=== PATIENT | male | born 1950 | race Caucasian/White ===

== ENCOUNTER 2016-11-30 11:28 | Emergency (ER) | payer OTHER ==
[~2016-11-30 11:28] MED LIST: ALBUTEROL0.09 MG/A2 INH; AMOXICILLIN500 MG PO; ANTIBIOTIC; AVPAK AZITHROM250 M1 PO; AZITHROMYCIN250 MG PO; BACTRIM DS 8001 TA1 PO; BENTYL10 MG PO; BIAXIN500 MG PO; BP MED; BP PILL; CEFTIN500 MG PO; CIALIS10 MG PO; CLARITIN10 MG PO; Carafate1 GM/10 ML OGT; DAYPRO600 M1 PO; DUONEB 3 MG/3 ML3 M1 NEB; HUMALOG100 U/ML SC; IBU800 MG PO; INDOCIN50 MG PO; IRON325 M1 PO; K-DUR20 MEQ PO; KEFLEX500 MG PO; KROGER NIC21 MG/24 H T; LASIX40 MG PO; LEVAQUIN750 M1 PO; LEVOFLOXACIN500 MG PO; LISINOPRIL HCTZ1 TA1 PO; LISINOPRIL10 MG PO; MEDROL DOSEPAK4 MG PO; MOTRIN800 MG PO; MUCINEX ER600 MG PO; MUCINEX600 MG PO; MYCOLOG CREAM 115 GM T; Motrin,Rufen800 MG PO; NAPROSYN500 MG PO; NEURONTIN600 MG PO; NICODERM C21 MG/24 H T; PARAFON FORTE500 MG PO; PERCOCET 325 MG1 TA7 PO; PHENERGAN W/DM120 ML PO; PREDNICOT10 MG PO; PREDNICOT20 MG PO; PREDNISONE10 MG PO; PREDNISONE5 MG PO; PREDNISONE50 MG PO; PROTONIX40 MG PO; PROVENTIL0.09 MG/A1 INH; ROBAXIN500 MG PO; ROBAXIN750 MG PO; SPIRIVA18 MCG INH; SUBOXONE 8 MG-1 EACH SL; SUBOXONE 8 MG-21 TA1 PO; SUBOXONE 8 MG-21 TA3 SL; SUBOXONE 8 MG-21 TAB SL; SYMBICORT1 AE1 INH; TRAMADOL HCL50 MG PO; ULTRAM50 MG PO; VENTOLIN H0.09 MG/AC INH; VIBRAMYCIN100 MG PO; VICODIN 5/500 505 MG PO; VICODIN 500 MG-1 TAB PO; VISTARIL25 M1 PO; ZITHROMAX Z PA250 MG PO; ZITHROMAX250 MG PO; [UNRECOGNIZED DRUG - OTHER] T; [UNRECOGNIZED DRUG - REMARK]
[2016-11-30 11:33] VITALS: BP 118/72
== END 2016-11-30 11:55 | disposition home or self-care (01) ==
LOC: ED 11:28
DX: Z76.0 Encounter for issue of repeat prescription (principal); I10 Essential (primary) hypertension; J44.9 Chronic obstructive pulmonary disease, unspecified; Z79.899 Other long term (current) drug therapy

== ENCOUNTER 2016-12-10 16:32 | Emergency (ER) | payer OTHER ==
[~2016-12-10] VITALS: Wt 117.9 kg
[2016-12-10 16:39] VITALS: BP 150/84
[2016-12-10 16:55] LABS: BASO % 0.3 % (0.0-1.0); EOS # 0.2 10*3/uL (0.0-0.4); EOS % 1.7 % (1.0-4.0); HEMATOCRIT 48.5 % (42.0-52.0); LYMPH # 4.1 10*3/uL (1.3-4.4); LYMPH % 35.5 % (27.0-41.0); MEAN CELL VOLUME 88.7 fl (80.0-94.0); MEAN CORPUSCULAR HGB 29.3 pg (27.0-31.0); MEAN PLATELET VOLUME 11.3 fl (9.6-12.3); MONO # 0.8 10*3/uL (0.1-1.0); NEUT # 6.4 10*3/uL (2.3-7.9); NEUT % 55.2 % (47.0-73.0); PLATELET COUNT AUTOMATED 190 10*3/uL (130-400); RED BLOOD COUNT 5.47 10*6/uL (4.50-5.90); RED CELL DISTRI WIDTH 14.1 % (0-14.5); WHITE BLOOD COUNT 11.5 10*3/uL (4.8-10.8)
[2016-12-10 17:13] LABS: ALBUMIN 3.3 gm/dl (3.1-4.5); ALKALINE PHOSPHATASE 81 U/L (45-117); BILIRUBIN, TOTAL 0.5 mg/dl (0.2-1.0); BUN 18 mg/dl (7-24); CARBON DIOXIDE 32 mmol/L (21-32); CHLORIDE 99 mmol/L (98-107); EST GLOM FILT AFRICAN AMERICAN > 60 ml/min; GLUCOSE 146 mg/dL (65-99); POTASSIUM 4.4 mmol/L (3.5-5.1); SGOT/AST 28 IU/L (3-35); SGPT/ALT 27 U/L (12-78); SODIUM 137 mmol/L (136-145); TOTAL PROTEIN 7.2 gm/dL (6.4-8.2)
[2016-12-10] MEDS ORDERED: PREDNISONE10 MG PO (17:58)
[2016-12-10] MEDS ORDERED: 'PARAFON FORTE500 M1 PO (17:58)
== END 2016-12-10 18:05 | disposition home or self-care (01) ==
LOC: ED 16:32
PROVIDERS: Nurse Practitioner Family
DX: R25.2 Cramp and spasm (principal); R03.0 Elevated blood-pressure reading, without diagnosis of hypertension; F17.200 Nicotine dependence, unspecified, uncomplicated; I10 Essential (primary) hypertension; J44.9 Chronic obstructive pulmonary disease, unspecified

== ENCOUNTER 2017-02-16 11:51 | Emergency (ER) | payer OTHER ==
[~2017-02-16] VITALS: Ht 187.9 cm; Wt 113.4 kg
[~2017-02-16 11:51] MED LIST changes: +'PARAFON FORTE500 M1 PO
[2017-02-16 11:54] VITALS: BP 139/77
== END 2017-02-16 13:40 | disposition home or self-care (01) ==
LOC: ED 11:51
DX: Z76.0 Encounter for issue of repeat prescription (principal); I10 Essential (primary) hypertension; J44.9 Chronic obstructive pulmonary disease, unspecified; Z87.891 Personal history of nicotine dependence; Z79.899 Other long term (current) drug therapy

== ENCOUNTER 2017-07-07 16:02 | Emergency (ER) | payer OTHER ==
[~2017-07-07] VITALS: Ht 187.9 cm; Wt 122.5 kg
[2017-07-07 16:59] LABS: BILIRUBIN 1+ (NEGATIVE); BLOOD 3+ (NEGATIVE); CLARITY TURBID (CLEAR); COLOR YELLOW (YELLOW); GLUCOSE NEGATIVE (NEGATIVE); KETONE TRACE (NEGATIVE); LEUKO ESTERASE 2+ (NEGATIVE); NITRITE POSITIVE (NEGATIVE); SPECIFIC GRAVITY 1.025 (1.005-1.030)
[2017-07-07 17:14] LABS: BACTERIA 2+; EPITHELIAL CELLS 0-2; RBC TNTC rbc/hpf (0-2); WBC TNTC wbc/hpf (0-5)
[2017-07-07] MEDS ORDERED: OMNICEF300 MG PO (17:18)
[2017-07-07 17:30] VITALS: BP 129/87
== END 2017-07-07 17:42 | disposition home or self-care (01) ==
LOC: ED 16:02
PROVIDERS: Physician Assistant
DX: N30.01 Acute cystitis with hematuria (principal); F17.200 Nicotine dependence, unspecified, uncomplicated; Z79.899 Other long term (current) drug therapy

== ENCOUNTER 2017-08-16 14:45 | Inpatient (IN) | payer OTHER ==
[~2017-08-16] VITALS: Ht 188 cm; Wt 158.4 kg
--- NOTE | ~2017-08-16 | PR ---
[place], [place] PROGRESS NOTE NAME: [facility] UNIT #: [id number] ROOM: 403 DOCTOR: ROMULO GILBERT MD BIRTHDATE: [birth year] DOS: SUBJECTIVE: The patient is not having any complaints today. Cough and shortness of breath have subsided. OBJECTIVE: VITAL SIGNS: Blood pressure is 188/46, pulse of 70, respirations 16, temperature 97.4. LUNGS: Clear. HEART: Regular. ABDOMEN: Obese, soft. EXTREMITIES: No edema. LABORATORY DATA: Sputum culture final, no bacterial growth. ASSESSMENT AND PLAN: 1. Acute bronchiolitis, proven on a CT scan of the chest. The patient is improved and does not have any evidence of bronchospasm. The plan is to discharge him to home today. 2. Acute exacerbation of chronic obstructive pulmonary disease with hypoxic respiratory failure, hypoxemia has corrected. He does not need oxygen. The plan is to discharge him to home. 3. History of chronic respiratory failure. He used to have oxygen at home, but then decided to smoke while on the oxygen, this resulted in busch of his face, this happened about a year ago. 4. Chronic opioid addiction. Continue Suboxone. 5. Benign hypertension. Pressure is on the low side. We will avoid hydrochlorothiazide. ROMULO GILBERT MD CM:PNTRANS 0838 [id number] ROMULO GILBERT MD 08/19/17 1147 interface
--- NOTE | ~2017-08-16 | PR ---
[place], [place] PROGRESS NOTE NAME: [facility] UNIT #: [id number] ROOM: 403 DOCTOR: ROMULO GILBERT MD BIRTHDATE: [birth year] DOS: 08/18/2017 SUBJECTIVE: The patient is about the same, does not have any new complaints. His breathing is improved, but not completely back to his baseline. PHYSICAL EXAMINATION: VITAL SIGNS: Blood pressure is 107/73, pulse of 92, respirations 23, temperature 97.6. LUNGS: Diminished breath sounds, a few scattered rhonchi. HEART: Regular. ABDOMEN: Obese, soft, nontender. EXTREMITIES: Without any edema. ASSESSMENT AND PLAN: 1. Bilateral pneumonia, possible Gram-negative. 2. Chronic obstructive pulmonary disease with mild exacerbation. 3. Small nodules in the lungs, which will be followed as an outpatient. 4. Moderate cigarette smoker, advised ____. 4. Acute hypoxic respiratory failure. We will do an oxygen ____. Right now, the patient is saturating well and is on room air. ROMULO GILBERT MD CM:PNTRANS 0718 0831 ROMULO GILBERT MD 08/19/17 0328 interface
--- NOTE | ~2017-08-16 | WRIGHTHP ---
[place], [place] PATIENT HISTORY AND PHYSICAL EXAM NAME: [facility] UNIT #: [id number] ROOM: 403 DOCTOR: OFELIA OSORIOROMULO BIRTHDATE: [birth year] DOS: 08/16/2017 HISTORY OF PRESENT ILLNESS: This patient is known to us from previous admissions. He is 66 years old. The patient states that he has been sick for about 2 weeks now. He is not even able to get up and eat anything or take his Suboxone. He denies having any chest pains, palpitations, has been short of breath, has had a cough, has had some upset stomach and does not feel like eating much. He did try some [id number] medication without any improvement. Finally, came to the hospital where he was evaluated and was admitted. PAST MEDICAL HISTORY: 1. COPD. 2. Moderate cigarette smoker. 3. Chronic respiratory failure. 4. Benign hypertension. 5. Generalized anxiety disorder. 6. Opioid addiction. MEDICATIONS: Suboxone 8 mg q.8, lisinopril hydrochlorothiazide 1 tablet daily. SOCIAL HISTORY: Nonsmoker, does not use any alcohol right now, but he has history of cigarette smoking for many years. PHYSICAL EXAMINATION: GENERAL: He is awake and alert and oriented, looks kind of weak, but is able to talk in complete sentences and answers questions appropriately. VITAL SIGNS: Blood pressure is 111/84, pulse of 92, respirations 18, temperature 97.5. LUNGS: Diminished breath sounds, scattered rhonchi. HEART: Regular. ABDOMEN: Obese. EXTREMITIES: Without any edema. LABORATORY DATA: Elevated white cell count of 14.4. Sodium 134, potassium 3.7, chloride 95. ASSESSMENT AND PLAN: 1. The patient who presents with shortness of breath and hypoxemia with acute hypoxic respiratory failure, patient is ordered a CT of the chest to rule out underlying pneumonia. X-ray does show some changes. 2. Bilateral lower lobe pneumonia with atelectasis, most likely Gram-negative. IV antibiotics have been ordered. 3. Chronic obstructive pulmonary disease with acute exacerbation. IV steroids have been ordered. 4. Chronic opioid addiction, Suboxone will be restarted. [place], [place] PATIENT HISTORY AND PHYSICAL EXAM NAME: [facility] UNIT #: [id number] ROOM: 403 DOCTOR: ROMULO GILBERT MD BIRTHDATE: [birth year] ROMULO GILBERT MD CM:HISPHYS:PATIENT HISTORY AND PHYSICAL EXAMINATION 1 0850 ROMULO GILBERT MD 08/17/17 0849 interface
[~2017-08-16 14:45] MED LIST changes: +OMNICEF300 MG PO
[2017-08-16 15:05] VITALS: BP 115/64
[2017-08-16 15:40] LABS: BASO % 0.1 % (0.0-1.0); HEMATOCRIT 51.8 % (42.0-52.0); HEMOGLOBIN 17.3 g/dl (14.0-18.0); LYMPH # 2.4 10*3/uL (1.3-4.4); LYMPH % 16.5 % (27.0-41.0); MEAN CELL VOLUME 86.3 fl (80.0-94.0); MEAN CORPUSCULAR HGB 28.8 pg (27.0-31.0); MEAN CORPUSCULAR HGB CONC 33.4 g/dl (33.0-37.0); MONO % 7.2 % (3.0-9.0); NEUT # 10.9 10*3/uL (2.3-7.9); NEUT % 75.9 % (47.0-73.0); PLATELET COUNT AUTOMATED 142 10*3/uL (130-400); RED CELL DISTRI WIDTH 14.2 % (0-14.5); WHITE BLOOD COUNT 14.4 10*3/uL (4.8-10.8)
[2017-08-16 15:57] LABS: ALBUMIN 2.8 gm/dl (3.1-4.5); ALKALINE PHOSPHATASE 73 U/L (45-117); BUN 12 mg/dl (7-24); CHLORIDE 95 mmol/L (98-107); CREATININE 0.82 mg/dL (0.70-1.30); POTASSIUM 3.7 mmol/L (3.5-5.1); SGOT/AST 27 IU/L (3-35); SGPT/ALT 17 U/L (12-78); SODIUM 134 mmol/L (136-145); TOTAL PROTEIN 7.3 gm/dL (6.4-8.2)
[2017-08-16 16:02] LABS: TROPONIN I < 0.015 ng/ml (<0.045)
[2017-08-16 16:11] LABS: ABG O2 SATURATION 95.1 % (95-97); ARTERIAL BLOOD GAS PCO2 42.4 mmHg (35-45); ARTERIAL BLOOD GAS PH 7.452 (7.35-7.45); ARTERIAL BLOOD GAS PO2 71.7 mmHg (80-90)
[2017-08-16 16:30] VITALS: BP 116/78
[2017-08-16 16:59] VITALS: BP 119/75
[2017-08-16 17:40] VITALS: BP 110/77
[2017-08-16] MEDS ORDERED: VITAMIN D50000 UNIT PO (18:30)
[2017-08-16] MEDS ORDERED: VENTOLIN 02.5 MG/3 M INH (18:31)
[2017-08-16 20:00] VITALS: BP 120/67
[2017-08-17] VITALS (7 sets, daily range): BP systolic 86–128; BP diastolic 47–84
[2017-08-18 08:00] VITALS: BP 88/66
[2017-08-18 12:00] VITALS: BP 133/88
[2017-08-18 16:00] VITALS: BP 101/58
[2017-08-18 20:00] VITALS: BP 83/43
[2017-08-18 23:58] VITALS: BP 88/46
[2017-08-19 08:00] VITALS: BP 124/61
[2017-08-19] MEDS ORDERED: VENTOLIN 02.5 MG/3 M INH (08:27)
[2017-08-19] MEDS ORDERED: MUCINEX ER600 MG PO (08:27)
[2017-08-19] MEDS ORDERED: CIPRO500 MG PO (08:27)
[2017-08-19] MEDS ORDERED: LISINOPRIL10 M1 PO (08:37)
[2017-08-19 09:04] LABS: HEMATOCRIT 48.6 % (42.0-52.0); HEMOGLOBIN 15.8 g/dl (14.0-18.0); MEAN CELL VOLUME 88.2 fl (80.0-94.0); MEAN CORPUSCULAR HGB 28.7 pg (27.0-31.0); MEAN CORPUSCULAR HGB CONC 32.5 g/dl (33.0-37.0); MEAN PLATELET VOLUME 12.1 fl (9.6-12.3); PLATELET COUNT AUTOMATED 149 10*3/uL (130-400); RED BLOOD COUNT 5.51 10*6/uL (4.50-5.90); RED CELL DISTRI WIDTH 14.2 % (0-14.5); WHITE BLOOD COUNT 7.8 10*3/uL (4.8-10.8)
[2017-08-19 09:19] LABS: BUN 16 mg/dl (7-24); CHLORIDE 103 mmol/L (98-107); CREATININE 0.75 mg/dL (0.70-1.30); POTASSIUM 3.2 mmol/L (3.5-5.1); SODIUM 143 mmol/L (136-145)
[2017-08-19 09:30] LABS: ATYPICAL LYMPHS 9 % (0-0); TOTAL CELLS COUNTED 100 #CELLS
[2017-08-19 09:31] LABS: PLATELET SUFFICIENCY NORMAL (NORMAL)
== END 2017-08-19 10:22 | disposition home or self-care (01) | DRG 871 ==
LOC: ED 14:45 → EDHOLD 17:06 → 4E 17:06
PROVIDERS: Internal Medicine; Nurse Practitioner Family
DX: A41.9 Sepsis, unspecified organism (principal); J15.6 Pneumonia due to other Gram-negative bacteria; J96.21 Acute and chronic respiratory failure with hypoxia; E46 Unspecified protein-calorie malnutrition; F11.20 Opioid dependence, uncomplicated; E87.1 Hypo-osmolality and hyponatremia; J44.0 Chronic obstructive pulmonary disease with (acute) lower respiratory infection; Z68.41 Body mass index [BMI] 40.0-44.9, adult; Z99.81 Dependence on supplemental oxygen; J44.1 Chronic obstructive pulmonary disease with (acute) exacerbation; F17.210 Nicotine dependence, cigarettes, uncomplicated; F41.1 Generalized anxiety disorder; E66.9 Obesity, unspecified; R91.8 Other nonspecific abnormal finding of lung field; G89.29 Other chronic pain; M25.562 Pain in left knee; I10 Essential (primary) hypertension; M25.561 Pain in right knee; Z87.440 Personal history of urinary (tract) infections; Z90.49 Acquired absence of other specified parts of digestive tract; Z83.3 Family history of diabetes mellitus; Z79.899 Other long term (current) drug therapy; Z71.6 Tobacco abuse counseling

== ENCOUNTER 2017-10-15 15:27 | Inpatient (IN) | payer OTHER ==
[~2017-10-15] VITALS: Ht 188 cm; Wt 164.0 kg
--- NOTE | ~2017-10-15 | WRIGHTHP ---
[place], [place] PATIENT HISTORY AND PHYSICAL EXAM NAME: [facility] #: [id number] UNIT #: [id number] ROOM: 532 DOCTOR: MORA HANKINS MD BIRTHDATE: [birth year] DOS: 10/15/2017 HISTORY OF PRESENT ILLNESS: The patient is a 66-year-old gentleman with a past medical history of: 1. COPD, oxygen dependent with chronic respiratory failure. 2. Chronic opioid addiction. 3. Benign essential hypertension. 4. Hypertension. The patient was admitted when he presented to the Emergency Department with increasing shortness of breath and he was found to be in right-sided heart failure and acute exacerbation of COPD and recommended for admission. Soon after admission, the patient says he is breathing better and would like to go home immediately without completing his treatment. No complaints of chest pain. No dizziness or fainting episode. No GI or urinary symptoms. REVIEW OF SYSTEMS: LUNGS: Increasing shortness of breath and wheezing. GASTROINTESTINAL: No nausea, vomiting, diarrhea or constipation. CARDIOVASCULAR: No chest pains or palpitations. SOCIAL HISTORY: The patient continues to smoke one and half pack of cigarettes a day. Denies any alcohol or drug abuse. FAMILY HISTORY: Noncontributory. HOME MEDICATIONS: DuoNeb, lisinopril, furosemide. ALLERGIES: No known drug allergies. PHYSICAL EXAMINATION: GENERAL: Alert and oriented x 3, in no visible distress. HEENT AND NECK: Extraocular movements are intact. Sclerae are anicteric. Oral mucosa is moist and clean. No obvious facial weakness. Neck is supple without any lymphadenopathy. No thyromegaly. No JVD. No carotid arterial bruits. LUNGS: Show decreased breath sounds all over, some expiratory wheezing. CARDIOVASCULAR SYSTEM: Heart rate is regular in rate and rhythm. S1 and S2 normally audible. No significant murmur or any other abnormal cardiac sounds. ABDOMEN: Soft, nontender. No obvious organomegaly. Bowel sounds are present. No obvious herniation. EXTREMITIES: 1 to 2+ ankle edema. CENTRAL NERVOUS SYSTEM: Alert and oriented x 3. Cranial nerves II-XII are intact. Speech is normal. The patient is able to move all extremities. Normal muscle strength. Deep tendon reflexes are equal on both sides. Plantars were downgoing. LABORATORY DATA: PT, PTT baseline. Normal serum electrolytes. Albumin level low at 3. Chest x-ray is showing COPD. [place], [place] PATIENT HISTORY AND PHYSICAL EXAM NAME: [facility] UNIT #: [id number] ROOM: 532 DOCTOR: CR OSORIO,MORA Marques BIRTHDATE: [birth year] IMPRESSION AND PLAN: 1. The patient with acute exacerbation of severe underlying chronic obstructive pulmonary disease with acute over chronic respiratory failure, to be treated with corticosteroids, oxygen, nebulizer treatments, antibiotic. The patient is apparently leaving against medical advice. 2. Benign essential hypertension. Blood pressure is to be monitored and treated. 3. Acute right-sided congestive heart failure related to his advanced lung disease and pulmonary hypertension, treated with oxygen and diuresis. MORA HANKINS MD CM:HISPHYS:PATIENT HISTORY AND PHYSICAL EXAMINATION 1438 1750 MORA HANKINS MD 10/16/17 1749 interface
[~2017-10-15 15:27] MED LIST changes: +CIPRO500 MG PO; +LISINOPRIL10 M1 PO; +VENTOLIN 02.5 MG/3 M INH; +VITAMIN D50000 UNIT PO
[2017-10-15 15:34] VITALS: BP 134/81
[2017-10-15 16:27] LABS: BASO % 0.3 % (0.0-1.0); EOS # 0.2 10*3/uL (0.0-0.4); EOS % 2.6 % (1.0-4.0); HEMOGLOBIN 14.4 g/dl (14.0-18.0); LYMPH # 2.5 10*3/uL (1.3-4.4); LYMPH % 28.5 % (27.0-41.0); MEAN CELL VOLUME 90.4 fl (80.0-94.0); MEAN CORPUSCULAR HGB 28.9 pg (27.0-31.0); MEAN PLATELET VOLUME 11.4 fl (9.6-12.3); MONO # 0.6 10*3/uL (0.1-1.0); MONO % 7.1 % (3.0-9.0); NEUT # 5.4 10*3/uL (2.3-7.9); PLATELET COUNT AUTOMATED 175 10*3/uL (130-400); RED BLOOD COUNT 4.98 10*6/uL (4.50-5.90); RED CELL DISTRI WIDTH 15.3 % (0-14.5); WHITE BLOOD COUNT 8.8 10*3/uL (4.8-10.8)
[2017-10-15 16:30] VITALS: BP 133/82
[2017-10-15 16:36] LABS: ACT PARTIAL THROMBO TIME 25.5 SECONDS (20.8-31.5); INTERNATIONAL NORM RATIO 0.9 (2.0-3.5)
[2017-10-15 16:44] LABS: ALKALINE PHOSPHATASE 84 U/L (45-117); BUN 7 mg/dl (7-24); CHLORIDE 104 mmol/L (98-107); CREATININE 0.76 mg/dL (0.70-1.30); LIPASE 66 U/L (73-393); POTASSIUM 3.6 mmol/L (3.5-5.1); SGOT/AST 33 IU/L (3-35); SGPT/ALT 33 U/L (12-78); SODIUM 141 mmol/L (136-145); TOTAL PROTEIN 7.2 gm/dL (6.4-8.2); TROPONIN I < 0.015 ng/ml (<0.045)
[2017-10-15 18:05] VITALS: BP 124/72
[2017-10-15 18:24] VITALS: BP 146/80
[2017-10-15 21:13] VITALS: BP 129/76
[2017-10-16] VITALS: BP 117/70
[2017-10-16 08:00] VITALS: BP 104/48
== END 2017-10-16 10:51 | disposition left against medical advice (07) | DRG 291 ==
LOC: ED 15:27 → EDHOLD 17:35 → 5E 17:50
PROVIDERS: Emergency Medicine
DX: I11.0 Hypertensive heart disease with heart failure (principal); J96.20 Acute and chronic respiratory failure, unspecified whether with hypoxia or hypercapnia; I27.20 Pulmonary hypertension, unspecified; J44.1 Chronic obstructive pulmonary disease with (acute) exacerbation; F11.20 Opioid dependence, uncomplicated; Z99.81 Dependence on supplemental oxygen; I50.9 Heart failure, unspecified; N40.0 Benign prostatic hyperplasia without lower urinary tract symptoms; F17.210 Nicotine dependence, cigarettes, uncomplicated; M54.30 Sciatica, unspecified side; F41.9 Anxiety disorder, unspecified; M25.562 Pain in left knee; M25.561 Pain in right knee; G89.29 Other chronic pain; F13.10 Sedative, hypnotic or anxiolytic abuse, uncomplicated; Z83.3 Family history of diabetes mellitus; Z79.899 Other long term (current) drug therapy; Z87.01 Personal history of pneumonia (recurrent); Z87.440 Personal history of urinary (tract) infections; Z90.49 Acquired absence of other specified parts of digestive tract; Z87.19 Personal history of other diseases of the digestive system

== ENCOUNTER 2017-11-20 14:40 | Emergency (ER) | payer OTHER ==
[~2017-11-20] VITALS: Ht 187.9 cm; Wt 122.5 kg
[2017-11-20 15:46] LABS: BASO % 0.4 % (0.0-1.0); EOS # 0.1 10*3/uL (0.0-0.4); EOS % 0.7 % (1.0-4.0); HEMATOCRIT 49.8 % (42.0-52.0); HEMOGLOBIN 15.6 g/dl (14.0-18.0); LYMPH # 3.7 10*3/uL (1.3-4.4); MEAN CELL VOLUME 89.9 fl (80.0-94.0); MEAN CORPUSCULAR HGB 28.2 pg (27.0-31.0); MEAN CORPUSCULAR HGB CONC 31.3 g/dl (33.0-37.0); MEAN PLATELET VOLUME 11.4 fl (9.6-12.3); MONO # 0.9 10*3/uL (0.1-1.0); MONO % 8.8 % (3.0-9.0); NEUT # 5.3 10*3/uL (2.3-7.9); NEUT % 52.8 % (47.0-73.0); PLATELET COUNT AUTOMATED 177 10*3/uL (130-400); RED BLOOD COUNT 5.54 10*6/uL (4.50-5.90); RED CELL DISTRI WIDTH 14.7 % (0-14.5); WHITE BLOOD COUNT 10.1 10*3/uL (4.8-10.8)
[2017-11-20 15:54] LABS: ACT PARTIAL THROMBO TIME 25.5 SECONDS (20.8-31.5)
[2017-11-20 16:01] VITALS: BP 144/82
[2017-11-20 16:01] LABS: ALBUMIN 3.3 gm/dl (3.1-4.5); ALKALINE PHOSPHATASE 78 U/L (45-117); BUN 8 mg/dl (7-24); CHLORIDE 100 mmol/L (98-107); CREATININE 0.84 mg/dL (0.70-1.30); LIPASE 75 U/L (73-393); POTASSIUM 3.9 mmol/L (3.5-5.1); SGOT/AST 29 IU/L (3-35); SGPT/ALT 29 U/L (12-78); SODIUM 137 mmol/L (136-145); TOTAL PROTEIN 7.7 gm/dL (6.4-8.2)
[2017-11-20 16:06] LABS: TROPONIN I < 0.015 ng/ml (<0.045)
[2017-11-20] MEDS ORDERED: PREDNISONE10 MG PO (16:21)
[2017-11-20] MEDS ORDERED: AUGMENTIN 875875 MG PO (16:21)
[2017-11-20] MEDS ORDERED: CEPACOL SORE T1 EACH PO (16:29)
== END 2017-11-20 16:30 | disposition home or self-care (01) ==
LOC: ED 14:40
PROVIDERS: Nurse Practitioner Family
DX: J02.9 Acute pharyngitis, unspecified (principal); J40 Bronchitis, not specified as acute or chronic; F17.200 Nicotine dependence, unspecified, uncomplicated; J44.1 Chronic obstructive pulmonary disease with (acute) exacerbation; F41.9 Anxiety disorder, unspecified; Z79.899 Other long term (current) drug therapy

== ENCOUNTER 2017-11-22 19:54 | Inpatient (IN) | payer OTHER ==
[~2017-11-22] VITALS: Ht 188 cm; Wt 159.4 kg
--- NOTE | ~2017-11-22 | PR ---
[place], [place] PROGRESS NOTE NAME: [facility] UNIT #: [id number] ROOM: 526 DOCTOR: ROMULO GILBERT MD BIRTHDATE: [birth year] DOS: SUBJECTIVE: The patient is wheezing this morning again. OBJECTIVE: VITAL SIGNS: Blood pressure is 109/66, pulse of 58, respirations 20, temperature 97.5. LUNGS: Diminished breath sounds, scattered wheezes and rhonchi. HEART: Regular. ABDOMEN: Obese. EXTREMITIES: Without any edema. CT of the chest shows tree-in-bud morphology suggestive of atypical pneumonia in the right upper lobe with atelectasis in the lingula. ASSESSMENT AND PLAN: 1. Hypoxic respiratory failure. We will place him back on his BiPAP. 2. Pneumonia, possible Gram-negative, on IV antibiotics. 3. Chronic obstructive pulmonary disease with acute exacerbation, improvement has been extremely slow. We will continue current treatment plan. ROMULO GILBERT MD CM:PNTRANS 0818 1242 ROMULO GILBERT MD 11/25/17 1241 interface
--- NOTE | ~2017-11-22 | PR ---
[place], [place] PROGRESS NOTE NAME: [facility] UNIT #: [id number] ROOM: 526 DOCTOR: ROMULO GILBERT MD BIRTHDATE: [birth year] DOS: 11/27/2017 SUBJECTIVE: The patient is doing much better this morning. OBJECTIVE: VITAL SIGNS: Pressure is 136/88, pulse of 72, respirations 14. LUNGS: Clear. HEART: Regular. ABDOMEN: Obese. EXTREMITIES: Without any edema. ASSESSMENT AND PLAN: 1. Pneumonia, gram-negative, on IV antibiotics. Repeat chest x-ray will be ordered to make sure it is clearing. 2. Exacerbation of chronic obstructive pulmonary disease, improving. 3. Hypoxic respiratory failure, which is resolved. The plan is to discharge him to home tomorrow if the pneumonia shows improvement. ROMULO GILBERT MD CM:PNTRANS 0815 2339 ROMULO GILBERT MD 11/27/17 2338 interface
--- NOTE | ~2017-11-22 | PR ---
[place], [place] PROGRESS NOTE NAME: [facility] UNIT #: [id number] ROOM: 526 DOCTOR: ROMULO GILBERT MD BIRTHDATE: [birth year] DOS: 11/28/2017 SUBJECTIVE: The patient is doing fine without any complaints. OBJECTIVE: VITAL SIGNS: Graphic trend shows pressure 150/81, pulse of 89, respirations 20, temperature 97.7. LUNGS: Diminished breath sounds. No wheezes heard this morning. HEART: Regular. ABDOMEN: Obese, soft. EXTREMITIES: Without any edema. ASSESSMENT AND PLAN: 1. The patient with hypoxic respiratory failure, improved. 2. Acute pneumonia, right upper lobe with atelectasis of the lingula. The patient has been on IV antibiotics, definitely clinically improved. Awaiting chest x-ray, but the patient is stable and most likely can be discharged to home. 3. Hypokalemia, possibly from VITA inhibitors. We will discontinue VITA inhibitors and place him on Norvasc for hypertension. ROMULO GILBERT MD CM:PNTRANS 0824 1026 ROMULO GILBERT MD 11/28/17 1025 interface
--- NOTE | ~2017-11-22 | WRIGHTHP ---
[place], [place] PATIENT HISTORY AND PHYSICAL EXAM NAME: [facility] UNIT #: [id number] ROOM: 526 DOCTOR: ROMULO GILBERT MD BIRTHDATE: [birth year] DOS: 11/22/2017 HISTORY OF PRESENT ILLNESS: The patient is 66-year-old, known to us. He comes in with complaints of difficulty breathing. The patient was seen in the emergency room on November 20. At that time, he was complaining of sore throat and cough. His oxygen saturation was 92% on room air. At that time, he was given IV steroids, breathing treatments and was sent home on tapering dose of steroids and antibiotics. He came back in on the evening with worsening shortness of breath at this time, he had significant bronchospasm and he was hypoxic and therefore admitted. This morning, he is extremely tachypneic with audible wheezing. He denies having any chest pains or palpitations, not have any fever or chills. Last hospitalization was in October 2015 with shortness of breath, but he left AMA. PAST MEDICAL HISTORY: Also significant for chronic hypoxic respiratory failure, chronic opioid addiction, benign hypertension. MEDICATIONS: Albuterol, lisinopril 10 daily, prednisone tapering dose and Suboxone q.8 hours. SOCIAL HISTORY: Smoker of about half a pack of cigarettes a day, even on oxygen. Denies using any alcohol. PHYSICAL EXAMINATION: VITAL SIGNS: Graphic trend shows a pressure 117/64, pulse of 97, respirations 20, temperature 98.1. LUNGS: Diminished breath sounds, very tight with significant bronchospasm and audible wheezing. HEART: Regular. ABDOMEN: Obese. EXTREMITIES: Without any edema. ASSESSMENT AND PLAN: 1. The patient presents with acute exacerbation of COPD. He has significant bronchospasms. I am afraid the patient may end up getting tired and ending up on a ventilator, so we will place him on a BiPAP this morning. Discussed with respiratory and also dose of steroids will be increased. 2. Benign hypertension, controlled. 3. Acute tracheobronchitis on antibiotics. We will check an echocardiogram and a CT chest. [place], [place] PATIENT HISTORY AND PHYSICAL EXAM NAME: [facility] UNIT #: [id number] ROOM: 526 DOCTOR: ROMULO GILBERT MD BIRTHDATE: [birth year] ROMULO GILBERT MD CM:HISPHYS:PATIENT HISTORY AND PHYSICAL EXAMINATION 2 7 ROMULO GILBERT MD 11/23/17 0917 interface
--- NOTE | ~2017-11-22 | PR ---
[place], [place] [id number] #: [id number] ROOM: 526 DOCTOR: ROMULO GILBERT MD BIRTHDATE: [birth year] DOS: 11/26/2017 SUBJECTIVE: The patient is doing much better this morning. OBJECTIVE: VITAL SIGNS: Graphic trend shows a pressure 109/65, pulse of 62, respirations 20 and temperature 97.7. LUNGS: Clear. HEART: Regular. ABDOMEN: Obese. EXTREMITIES: Without any edema. ASSESSMENT AND PLAN: 1. Pneumonia, possible gram-negative, on IV antibiotics. 2. Hypoxic respiratory failure, which is resolving. 3. Chronic obstructive pulmonary disease with acute exacerbation. The patient definitely is much improved from yesterday. Continue current care. ROMULO GILBERT MD CM:PNTRANS 0811 19 ROMULO GILBERT MD 12/06/17 1431 interface
--- NOTE | ~2017-11-22 | PR ---
[place], [place] PROGRESS NOTE NAME: [facility] UNIT #: [id number] ROOM: 526 DOCTOR: ROMULO GILBERT MD BIRTHDATE: [birth year] DOS: SUBJECTIVE: The patient is doing much better this morning. He is no longer tachypneic and accessory muscles of respirations are not being used. He did tolerate the BiPAP during the last 24 hours. OBJECTIVE: VITAL SIGNS: Blood pressure is 99/59, pulse of 74, respirations 16, temperature 96.2. LUNGS: Clear. HEART: Regular. ABDOMEN: Obese. EXTREMITIES: Without any edema. ASSESSMENT AND PLAN: 1. Acute exacerbation of chronic obstructive pulmonary disease. 2. Hypoxic respiratory failure, definite improvement, so we can discontinue the BiPAP and continue the rest of the management and hopefully can be discharged. 3. Echo did not show any evidence of left ventricular dysfunction. ROMULO GILBERT MD CM:PNTRANS 0817 16 ROMULO GILBERT MD 11/24/17 2016 interface
--- NOTE | ~2017-11-22 | DS ---
[place], [place] DISCHARGE SUMMARY NAME: [facility] UNIT #: [id number] ROOM: 526 DOCTOR: ROMULO GILBERT MD BIRTHDATE: [birth year] DOS: 11/28/2017 DIAGNOSES: 1. Atypical pneumonia, right upper lobe. 2. Hypoxic respiratory failure. 3. Acute exacerbation of chronic obstructive pulmonary disease. 4. History of opioid addiction. 5. Hypokalemia, possibly from VITA inhibitors. 6. Benign hypertension, off lisinopril. DISCHARGE MEDICATIONS: He is going to be discharged on are Norvasc 5 mg daily, doxycycline 100 b.i.d. for 7 days, tapering dose of prednisone, Suboxone and DuoNeb q.i.d. He is off his lisinopril. HISTORY OF PRESENT ILLNESS: A 66-year-old white male who comes in with complaints of difficulty breathing. There was significant shortness of breath with tachypnea and accessory muscle usage. The patient was placed on BiPAP. A CT of the chest was done. IV steroids, breathing treatments, and antibiotics were started. The patient continued to have significant bronchospasm on maximal treatment plan. CT scan of the chest showed tree-in-bud changes of pneumonia in the right upper lobe as well as in the lingular area. The antibiotics were readjusted. With that there has been significant improvement in the bronchospasm and the shortness of breath. The patient is much improved today and should be able to go home. The hyperkalemia was noted, most likely from VITA inhibitors, which will be discontinued and placed on Norvasc for hypertension. The patient is encouraged to quit smoking. Blood cultures have come back negative. [place], [place] DISCHARGE SUMMARY NAME: [facility] UNIT #: [id number] ROOM: 526 DOCTOR: ROMULO GILBERT MD BIRTHDATE: [birth year] ROMULO GILBERT MD CM:DISCHARG 0827 0933 ROMULO GILBERT MD 11/28/17 0932 interface
[~2017-11-22 19:54] MED LIST changes: +AUGMENTIN 875875 MG PO; +CEPACOL SORE T1 EACH PO
[2017-11-22 19:55] VITALS: BP 128/89
[2017-11-22 20:23] VITALS: BP 128/89
[2017-11-22 20:28] LABS: BASO % 0.1 % (0.0-1.0); HEMATOCRIT 48.8 % (42.0-52.0); HEMOGLOBIN 15.5 g/dl (14.0-18.0); LYMPH # 1.6 10*3/uL (1.3-4.4); LYMPH % 15.3 % (27.0-41.0); MEAN CELL VOLUME 89.1 fl (80.0-94.0); MEAN CORPUSCULAR HGB 28.3 pg (27.0-31.0); MEAN CORPUSCULAR HGB CONC 31.8 g/dl (33.0-37.0); MEAN PLATELET VOLUME 11.6 fl (9.6-12.3); MONO # 0.6 10*3/uL (0.1-1.0); MONO % 5.2 % (3.0-9.0); NEUT # 8.3 10*3/uL (2.3-7.9); PLATELET COUNT AUTOMATED 194 10*3/uL (130-400); RED BLOOD COUNT 5.48 10*6/uL (4.50-5.90); WHITE BLOOD COUNT 10.5 10*3/uL (4.8-10.8)
[2017-11-22 20:45] LABS: ALBUMIN 3.2 gm/dl (3.1-4.5); ALKALINE PHOSPHATASE 73 U/L (45-117); BUN 12 mg/dl (7-24); CHLORIDE 104 mmol/L (98-107); CREATININE 0.89 mg/dL (0.70-1.30); LIPASE 59 U/L (73-393); SGOT/AST 37 IU/L (3-35); SGPT/ALT 32 U/L (12-78); SODIUM 140 mmol/L (136-145); TOTAL PROTEIN 7.6 gm/dL (6.4-8.2)
[2017-11-22 20:52] LABS: THYROID STIM HORMONE (HS) 0.698 uIU/ml (0.358-4.75); TROPONIN I < 0.015 ng/ml (<0.045)
[2017-11-22 21:50] VITALS: BP 135/86
[2017-11-22 21:51] LABS: BILIRUBIN NEGATIVE (NEGATIVE); BLOOD TRACE-INTACT (NEGATIVE); CLARITY CLEAR (CLEAR); COLOR YELLOW (YELLOW); GLUCOSE NEGATIVE (NEGATIVE); KETONE NEGATIVE (NEGATIVE); LEUKO ESTERASE NEGATIVE (NEGATIVE); NITRITE NEGATIVE (NEGATIVE); SPECIFIC GRAVITY >= 1.030 (1.005-1.030); UROBILINOGEN 0.2 E.U./dl (0.2-1.0)
[2017-11-22 22:01] LABS: BACTERIA 1+; MUCOUS 1+
[2017-11-22 22:02] LABS: EPITHELIAL CELLS 0-2
[2017-11-23] VITALS: BP 117/64
[2017-11-23 08:00] VITALS: BP 115/72
[2017-11-23 12:00] VITALS: BP 126/83
[2017-11-23 12:32] LABS: ABG BASE EXCESS 1.2 mmol/L (-2.0-2.0); ABG HCO3 29.5 mmol/l (22-26); ABG O2 SATURATION 91.8 % (95-97); ARTERIAL BLOOD GAS PCO2 62.9 mmHg (35-45); ARTERIAL BLOOD GAS PH 7.291 (7.35-7.45)
[2017-11-23 16:00] VITALS: BP 129/72
[2017-11-23 20:00] VITALS: BP 130/79
[2017-11-24] VITALS: BP 99/59
[2017-11-24 08:00] VITALS: BP 98/58
[2017-11-24 12:00] VITALS: BP 120/67
[2017-11-24 16:00] VITALS: BP 123/75
[2017-11-24 20:00] VITALS: BP 102/59
[2017-11-25] VITALS: BP 109/66
[2017-11-25 08:00] VITALS: BP 130/86
[2017-11-25 12:00] VITALS: BP 128/81
[2017-11-25 16:00] VITALS: BP 100/69
[2017-11-25 20:00] VITALS: BP 105/66
[2017-11-26] VITALS: BP 109/65
[2017-11-26 08:00] VITALS: BP 134/75
[2017-11-26 12:00] VITALS: BP 116/97
[2017-11-26 16:00] VITALS: BP 136/87
[2017-11-26 20:00] VITALS: BP 151/85
[2017-11-27] VITALS: BP 136/88
[2017-11-27 08:00] VITALS: BP 123/58
[2017-11-27 12:00] VITALS: BP 139/91
[2017-11-27 16:00] VITALS: BP 128/74
[2017-11-27 20:00] VITALS: BP 112/65
[2017-11-28] VITALS: BP 132/81
[2017-11-28 06:41] LABS: BASO % 0.2 % (0.0-1.0); HEMATOCRIT 48.8 % (42.0-52.0); HEMOGLOBIN 14.8 g/dl (14.0-18.0); LYMPH # 1.8 10*3/uL (1.3-4.4); LYMPH % 17.9 % (27.0-41.0); MEAN CELL VOLUME 92.6 fl (80.0-94.0); MEAN CORPUSCULAR HGB 28.1 pg (27.0-31.0); MEAN CORPUSCULAR HGB CONC 30.3 g/dl (33.0-37.0); MEAN PLATELET VOLUME 11.7 fl (9.6-12.3); MONO # 0.2 10*3/uL (0.1-1.0); MONO % 2.5 % (3.0-9.0); NEUT # 7.6 10*3/uL (2.3-7.9); NEUT % 77.6 % (47.0-73.0); PLATELET COUNT AUTOMATED 163 10*3/uL (130-400); RED BLOOD COUNT 5.27 10*6/uL (4.50-5.90); RED CELL DISTRI WIDTH 15.2 % (0-14.5); WHITE BLOOD COUNT 9.8 10*3/uL (4.8-10.8)
[2017-11-28 07:12] LABS: BUN 17 mg/dl (7-24); CHLORIDE 101 mmol/L (98-107); CREATININE 0.75 mg/dL (0.70-1.30); SODIUM 143 mmol/L (136-145)
[2017-11-28 07:17] LABS: POTASSIUM 5.6 mmol/L (3.5-5.1)
[2017-11-28 08:00] VITALS: BP 150/81
[2017-11-28] MEDS ORDERED: NORVASC5 MG PO (08:21)
[2017-11-28] MEDS ORDERED: PREDNISONE5 MG PO (08:21)
[2017-11-28] MEDS ORDERED: DOXYCYCLINE100 MG PO (08:21)
== END 2017-11-28 09:55 | disposition home or self-care (01) | DRG 871 ==
LOC: ED 19:54 → 5E 21:11 → EDHOLD 21:11 → 5E 21:29
PROVIDERS: Emergency Medicine Emergency Medical Services; Internal Medicine
PROC: 5A09357 Assistance with Respiratory Ventilation, Less than 24 Consecutive Hours, Continuous Positive Airway Pressure (ICD-10-PCS; principal; 2017-11-23)
PROC: 5A09357 Assistance with Respiratory Ventilation, Less than 24 Consecutive Hours, Continuous Positive Airway Pressure (ICD-10-PCS; 2017-11-25)
PROC: 5A09357 Assistance with Respiratory Ventilation, Less than 24 Consecutive Hours, Continuous Positive Airway Pressure (ICD-10-PCS; 2017-11-28)
DX: A41.9 Sepsis, unspecified organism (principal); J15.6 Pneumonia due to other Gram-negative bacteria; J96.01 Acute respiratory failure with hypoxia; J44.1 Chronic obstructive pulmonary disease with (acute) exacerbation; J44.0 Chronic obstructive pulmonary disease with (acute) lower respiratory infection; J98.11 Atelectasis; J20.9 Acute bronchitis, unspecified; I10 Essential (primary) hypertension; T44.5X5A Adverse effect of predominantly beta-adrenoreceptor agonists, initial encounter; E87.6 Hypokalemia; F17.210 Nicotine dependence, cigarettes, uncomplicated; Y92.89 Other specified places as the place of occurrence of the external cause; Z71.6 Tobacco abuse counseling; Z87.01 Personal history of pneumonia (recurrent); Z87.440 Personal history of urinary (tract) infections; Z90.49 Acquired absence of other specified parts of digestive tract; Z83.3 Family history of diabetes mellitus

== ENCOUNTER 2018-07-03 18:33 | Inpatient (IN) | payer OTHER ==
[~2018-07-03] VITALS: Ht 188 cm; Wt 145.3 kg
--- NOTE | ~2018-07-03 | PR ---
[place], [place] PROGRESS NOTE [id number] #: [id number] ROOM: 415 DOCTOR: ROMULO GILBERT MD BIRTHDATE: [birth year] DOS: 07/06/2018 SUBJECTIVE: The patient states that he feels better, but he still has a very moist sounding cough and is unable to bring up any sputum. OBJECTIVE: VITAL SIGNS: Blood pressure is 114/68, pulse of 75, respirations 22, temperature 97.9. LUNGS: Diminished breath sounds. Scattered wheezes heard. HEART: Regular. ABDOMEN: Obese. EXTREMITIES: Without any edema. ASSESSMENT AND PLAN: 1. Acute exacerbation of chronic obstructive pulmonary disease with continued cough and inability to bring up any sputum. We will ask Dr. Mena to see whether he could perform bronchoscopy. 2. Multiple lung nodules, which appears to be benign in nature. We will continue to follow. 3. Thoracic aortic aneurysm, which will need to be followed up as an outpatient. We will get Vascular Surgery to see him once he leaves the hospital. ROMULO GILBERT MD CM:PNTRANS 0734 0130 ROMULO GILBERT MD 07/07/18 0539 interface
--- NOTE | ~2018-07-03 | PR ---
[place], [place] PROGRESS NOTE [id number] #: [id number] ROOM: 415 DOCTOR: ROMULO GILBERT MD BIRTHDATE: [birth year] DOS: SUBJECTIVE: The patient is doing fine without any new complaints. He is ambulating and shortness of breath and cough has subsided. OBJECTIVE: VITAL SIGNS: Graphic trend shows a pressure 116/71, pulse of 84, respirations 20, temperature 97.5. LUNGS: Diminished breath sounds, clearer this morning. HEART: Regular. ABDOMEN: Obese. EXTREMITIES: Without any edema. ASSESSMENT AND PLAN: 1. Acute exacerbation of chronic obstructive pulmonary disease, improving. Since the bronchospasm is almost corrected, the plan is to discharge him to home today. We will do the bronchoscopy if needed as an outpatient. 2. Aneurysm, thoracic aortic aneurysm, which is 4.5 cm, which needs to be followed up as an outpatient. We will refer him to Vascular Surgery. The patient is advised to follow up in the office. 3. Benign hypertension, controlled with normal echocardiogram showing normal LV function with mild concentric left ventricular hypertrophy. 4. Moderate cigarette smoker, counseled. He does have nicotine patches at home, which he plans to use. ROMULO GILBERT MD CM:PNTRANS 0824 1050 ROMULO GILBERT MD 07/08/18 1051 interface
--- NOTE | ~2018-07-03 | PR ---
[place], [place] PROGRESS NOTE NAME: [facility]AV UNIT #: [id number] ROOM: 415 DOCTOR: LOKI SWANSON MD,CHRISTA BIRTHDATE: [birth year] DOS: 07/08/2018 SUBJECTIVE: He has been doing better at this time without any acute distress. The shortness of breath of the patient has been improving. The coughing has been improving progressively at the present time and reported infrequently. OBJECTIVE: VITAL SIGNS: For the patient this morning were noted as normal temperature, respiratory rate of 18, heart rate 69, blood pressure 116/71. The pulse oxygen saturation on 2 liters nasal cannula 95% saturation. HEENT: No acute change. NECK: Supple. CARDIOVASCULAR: S1, S2 is audible. LUNGS: Without any wheezing or crackles. ABDOMEN: Soft, nontender. Bowel sounds present. EXTREMITIES: No acute edema. IMPRESSION: The patient who has been currently responding to treatment noted with gradual improvement and resolution of the acute exacerbation of chronic obstructive pulmonary disease and other medical illnesses. The coughing has been gradually subsiding. PLAN OF TREATMENT: The patient will be receiving oxygen supplementation as was noted exertional hypoxia prior to discharge today. Bronchoscopy not be needed. Counseling was done about tobacco cessation. Outpatient followup could be suggested. The patient decided for further comprehensive assessment of chronic obstructive pulmonary disease. CHRISTA MANJARREZ MD CM:PNTRANS 1145 [id number] CHRISTA SWANSON MD 07/08/18 1578 interface
--- NOTE | ~2018-07-03 | CON ---
[place], [place] REPORT OF CONSULTATION NAME: [facility] [id number] UNIT #: [id number] ROOM: 415 DOCTOR: CHRISTA JARA MD BIRTHDATE: [birth year] DOS: 07/06/2018 PULMONARY CONSULTATION, EVALUATION AND MANAGEMENT REQUESTING PHYSICIAN: Miryam Rendon M.D. REASON FOR CONSULTATION: Possible consideration of bronchoscopy. HISTORY OF PRESENT ILLNESS: This is a 67-year-old white male, unknown to me, has been admitted to the hospital. He has been developing symptoms of increased shortness of breath with chest congestion and nonproductive cough. Cough has been noted quite severe, associated with pain which is described in the retrosternal area. There were no symptoms of hemoptysis. The patient has been treated in this hospital under the care of primary care physician on 07/03/2018. The symptoms have been decreased, except cough is still noted that remains nonproductive at this time. Denies symptoms of fever or chills. Denies symptoms of hemoptysis. The chest pain, which has been reported by the patient seemed to be better. REVIEW OF SYSTEMS: CONSTITUTIONAL: Fatigue and tiredness noted. Denies any symptoms of fever or chills. EYES: Denies burning, redness or tenderness. EARS, NOSE, THROAT SYMPTOMS: Denies sore throat, hoarseness, otalgia, postnasal drainage or epistaxis. CARDIOVASCULAR SYMPTOMS: Denies anginal pain, edema, or pain in lower extremities. GASTROINTESTINAL SYMPTOMS: Denies dysphagia, nausea, vomiting, diarrhea, abdominal pain, hematemesis, melena, or hematochezia. SKIN: Denies abnormal lesions or rashes. MUSCULOSKELETAL SYMPTOMS: Denies acute joint pain, redness or tenderness. Remaining systems were reviewed, they were noted all negative. PAST MEDICAL HISTORY: 1. History of COPD. 2. Chronic nicotine dependence. 3. Essential hypertension. 4. Xzfzahmh-bt-fnxwkp obesity. 5. History of opioid dependence. 6. History cluster headaches. 7. History of osteoarthritis. SOCIAL HISTORY: The patient currently lives at home. Denies any history of alcohol use or illicit drug use. Tobacco use is noted, up to 2 packs of cigarettes a day started as a teenager, and currently reducing tobacco use, stating smoking a pack of cigarettes per week. PAST SURGICAL HISTORY: 1. Total knee replacement. 2. Cholecystectomy. [place], [place] REPORT OF CONSULTATION NAME: WEST YADAV UNIT #: [id number] ROOM: [facility] DOCTOR: CHRISTA JARA MD BIRTHDATE: [birth year] 3. Heel spur removed. FAMILY HISTORY: Reported for diabetes mellitus. CURRENT MEDICATIONS: Administered in this hospitalization, use of Pulmicort Respules, albuterol sulfate, lisinopril, Mucinex, DuoNeb, Solu-Medrol 30 mg q. eight hours, and Rocephin. DRUG ALLERGIES: Reported as no known drug allergies. PHYSICAL EXAMINATION: GENERAL: This is a 67-year-old male patient who has been currently noted awake and alert, without any acute distress, sitting on the side of bed without any acute distress this morning on assessment. Height is 6 feet 2 inches, weight of 320 pounds, BMI 41. VITAL SIGNS: Normal temperature since admission, respiratory rate 22-18, heart rate of 90-75, blood pressure 120/80 to 114/68. Pulse oxygen saturation on 2 liters nasal cannula is 96% saturation. HEENT: Head was atraumatic. Eyes nonicterus. Decreased posterior pharyngeal space, high tongue base, crowding of soft tissue structures. NECK: Supple and obese. CARDIOVASCULAR: S1 and S2 audible. LUNGS: Noted without any wheeze or crackles at the present time. Breaths are noted generally diminished bilaterally. ABDOMEN: Soft, nontender. Bowel sounds present. EXTREMITIES: Noted with chronic obesity finding, without edema, clubbing or cyanosis. MUSCULOSKELETAL: Without any acute deformities. CENTRAL NERVOUS SYSTEM: Cranial nerves 2 through 12 intact. LABORATORY DATA: Admission CBC on 07/03/2018 is essentially noted as normal. Lactic acid 1.4. PT and PTT were normal on 07/03/2018. BUN and creatinine were normal. CO2 of 33. Chest x-ray does not show any acute pulmonary infiltration on 07/03/2018. Blood culture, no bacterial growth on 07/03/2018. CT scan of the chest that was ordered and completed with contrast on 07/04/2018 was personally reviewed, parenchymal windows review was noted without any acute pulmonary infiltration except small ground-glass opacity noted in the lingular region, may be related to atelectasis resulting from the mucus impaction. The mediastinal structures review does not show any evidence of significant lymphadenopathy, fat was noted in the mediastinal area because of current obesity. The patient was also noted with mild ascending aortic aneurysm without any dissection. Size of the aneurysm that is measured by the radiologist reported as 4.5 cm. IMPRESSION: 1. The patient who has been currently admitted to the hospital noted with nicotine abuse with acute exacerbation of chronic obstructive pulmonary disease, ongoing cough, nonproductive sputum, some area of atelectasis in lingula. 2. Chronic obesity, possible consideration of obstructive sleep apnea disorder as well. Still low-grade nicotine abuse reported from admission. [place], [place] REPORT OF CONSULTATION NAME: WEST YADAV UNIT #: [id number] ROOM: [facility] DOCTOR: CHRISTA JARA MD BIRTHDATE: [birth year] 3. Asymptomatic ascending aortic aneurysm 4.5 cm incidentally noted with current CT scan of the chest. PLAN OF MANAGEMENT: The patient will be continued on current plan of management. He will be assessed with therapeutic bronchoscopy that could be done next week based on the schedule availability. The patient could be considered for home discharge and the bronchoscopy could be done outpatient since the schedule may not be available for therapeutic bronchoscopy until Sunday. In the meantime, continue current maximal medical management. Abstinence of tobacco use was encouraged and counseling about tobacco cessation was done. Ascending aortic aneurysm monitoring to be done later as an outpatient and consultation could be obtained from the vascular surgeon. Thank you for allowing me to participate in the care of this patient. CHRISTA MANJARREZ MD CM:CONSTR:REPORT OF CONSULTATION 1503 07/22/18 0840 interface
--- NOTE | ~2018-07-03 | PR ---
[place], [place] PROGRESS NOTE [id number] UN[facility] #: [id number] ROOM: 415 DOCTOR: ROMULO GILBERT MD BIRTHDATE: [birth year] DOS: SUBJECTIVE: The patient is feeling slightly better this morning. OBJECTIVE: VITAL SIGNS: Graphic trend shows a pressure of 105/63, pulse of 79, respirations 20, and temperature 98.3. LUNGS: Diminished breath sounds, clearer this morning. HEART: Regular. ABDOMEN: Obese. EXTREMITIES: Without any edema. IMAGING: CT of the chest shows an aneurysm, which is 4.5 cm with multiple nodules. Echocardiogram shows pulmonary hypertension from underlying COPD with normal LV function without any major valvular pathology. ASSESSMENT AND PLAN: 1. Acute exacerbation of chronic obstructive pulmonary disease, improving slowly. 2. Ascending thoracic aortic aneurysm, evaluation as an outpatient. 3. Moderate cigarette smoker, counseled. 4. Multiple lung nodules. We will continue close followup as an outpatient. ROMULO GILBERT MD CM:PNTRANS [id number] ROMULO GILBERT MD 07/05/18 2332 interface
--- NOTE | ~2018-07-03 | PR ---
[place], [place] PROGRESS NOTE NAME: WEST YADAV UNIT #: [id number] ROOM: 415 DOCTOR: ROMULO GILBERT MD BIRTHDATE: [birth year] DOS: SUBJECTIVE: The patient states that he is slowly getting better. He is walking around. He is able to cough up some minimal amount of mucus. OBJECTIVE: VITAL SIGNS: Graphic trend shows a pressure 122/60, pulse of 82, respirations 18, temperature 97.6. LUNGS: Diminished breath sounds, scattered rales and wheezes heard. HEART: Regular. ABDOMEN: Obese, soft. EXTREMITIES: Without any edema. ASSESSMENT AND PLAN: 1. Acute exacerbation of chronic obstructive pulmonary disease, improving ever so slowly. Discussed with Dr. Mena the plans to do a bronchoscopy on Sunday. 2. Thoracic aortic aneurysm, for which, he will be referred to cardiothoracic surgeon as an outpatient. 3. Moderate cigarette smoker counseling given. 4. Chronic opioid addiction, on Suboxone, to be continued. ROMULO GILBERT MD CM:PNTRANS [id number] RMOULO GILBERT MD 07/08/18 0135 interface
--- NOTE | ~2018-07-03 | DS ---
[place], [place] DISCHARGE SUMMARY NAME: WEST YADAV UNIT #: [id number] ROOM: 415 DOCTOR: ROMULO GILBERT MD BIRTHDATE: [birth year] DOS: 07/08/2018 DIAGNOSES: 1. Acute exacerbation of chronic obstructive pulmonary disease. 2. Moderate cigarette smoker. 3. Benign hypertension. 4. Opioid addiction. 5. A 4.5 cm thoracic aortic aneurysm, needs to be referred to Vascular Surgery. HOSPITAL COURSE: The patient is 67 years old, very well known to us, comes in with complaints of difficulty breathing. He continues to smoke. He was admitted and had significant bronchospasm. A CT of the chest was done to rule out underlying pneumonia. This came back negative except for an aneurysm. Echocardiogram showed normal LV function without any valvular pathology with mild concentric LVH. He has been counseled against smoking. He also has multiple lung nodules, which need to be followed up as an outpatient. Dr. Mena did see the patient and he recommended possible bronchoscopy, but since the patient has improved, we will schedule the bronch as an outpatient if necessary. The patient is stable and is ambulating, so the plan is to discharge him to home today to follow up as an outpatient. DISCHARGE MEDICATIONS: Will be tapering dose of prednisone, Levaquin 750 daily for 7 days, breathing treatments of DuoNeb, Nicotrol patch 14 mcg, which he already has at home and his home medications, which include lisinopril and Suboxone. ROMULO GILBERT MD CM:DISCHARG ROMULO GILBERT MD 07/08/1829 interface
--- NOTE | ~2018-07-03 | PR ---
[place], [place] PROGRESS NOTE NAME: WEST YADAV UNIT #: [id number] ROOM: 415 DOCTOR: LOKI SWANSON MD,CHRISTA BIRTHDATE: [birth year] DOS: 07/07/2018 PULMONARY PROGRESS NOTE SUBJECTIVE: The patient reported reduction in symptoms of shortness of breath and cough and wheezing. Denies symptoms of chest pain. Denies symptoms of fever or chills. No hemoptysis. OBJECTIVE: VITAL SIGNS: Normal temperature, respiratory rate 18, heart rate of 82, blood pressure 122/61, pulse oxygen saturation on 2 liters nasal cannula 92% saturation. HEENT: No acute change. CARDIOVASCULAR: S1, S2 audible. LUNGS: Moderate decreased breath sounds, no wheezing today. ABDOMEN: Soft, obese, nontender. EXTREMITIES: Without any acute edema. IMPRESSION: Acute exacerbation of chronic obstructive pulmonary disease, acute tracheobronchitis, moderate nonproductive cough, which has been noted with partial improvement, last seen in progress. PLAN OF THERAPY: No changes in the plan of care at this time. Consider possible home discharge tomorrow morning with an outpatient bronchoscopy if needed. The final decision about the bronchoscopy will be made tomorrow after the patient will be reassessed. CHRISTA MANJARREZ MD CM:PNTRANS [id number] CHRISTA SWANSON MD 07/07/18 2340 interface
--- NOTE | ~2018-07-03 | WRIGHTHP ---
[place], [place] PATIENT HISTORY AND PHYSICAL EXAM NAME: WEST YADAV UNIT #: [id number] ROOM: 415 DOCTOR: ROMULO GILBERT MD BIRTHDATE: [birth year] DOS: 07/03/2018 HISTORY OF PRESENT ILLNESS: This patient is 67 years old. The patient is very well known to us. He was last admitted to the hospital a month ago with increasing shortness of breath and exacerbation of COPD. The patient states that he went home, ran out of his inhalers and his nebulizer medicine. He also started smoking and he is back into the Emergency Room yesterday with complaints of increasing shortness of breath. He has a very moist sounding cough, also has some retrosternal chest pain at times when he coughs. Denies having any fever, any chills. PAST MEDICAL HISTORY: Significant for: 1. COPD with moderate cigarette smoker. 2. Benign hypertension. 3. Chronic respiratory failure. 4. History of opioid addiction. MEDICATIONS: He is on are Suboxone 8 mg q. 8, lisinopril 10 daily, Ventolin q.i.d., ProAir HFA q.i.d. p.r.n. SOCIAL HISTORY: Smoker of about half a pack of cigarettes a day. Denies using any alcohol. PHYSICAL EXAMINATION: GENERAL: He is awake and alert and oriented. VITAL SIGNS: Graphic trend shows a pressure 100/56, pulse of 87, respirations 20, temperature 98.2. LUNGS: Diminished breath sounds, scattered wheezes and rales heard bilaterally. HEART: Regular. ABDOMEN: Obese, soft. EXTREMITIES: Without any edema. LABORATORY DATA: EKG unremarkable. Previous EKGs that shows left anterior hemiblock. WBC count is normal at 8.6, hemoglobin and hematocrit were normal. Lactic acid 1.1. Protime is subtherapeutic. Comprehensive glucose 146, potassium 4.2, sodium 142. Liver enzymes were normal. Troponin normal. Chest x-ray unremarkable. ASSESSMENT AND PLAN: 1. The patient presents with cough, shortness of breath, fever, admitted with acute tracheobronchitis, possible underlying pneumonia. Chest CT scan is ordered. 2. Chronic obstructive pulmonary disease with continued nicotine abuse with acute exacerbation. The patient is placed on IV steroids, breathing treatments. 3. Benign hypertension, controlled. 4. Opioid addiction. Continue Suboxone. An echocardiogram will be ordered. Check LV function. 5. Hypoglycemia. Arrange blood sugars twice daily with coverage. [place], [place] PATIENT HISTORY AND PHYSICAL EXAM NAME: WEST YADAV UNIT #: [id number] ROOM: [facility] DOCTOR: ROMULO GILBERT MD BIRTHDATE: [birth year] ROMULO GILBERT MD CM:HISPHYS:PATIENT HISTORY AND PHYSICAL EXAMINATION 0805 7 ROMULO GILBERT MD 07/16/18 0900 interface
--- NOTE | ~2018-07-03 | EKG ---
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
[~2018-07-03 18:33] MED LIST changes: +AMOXICILLIN500 M2 PO; +DOXYCYCLINE100 MG PO; +NORVASC5 MG PO; +PRINIVIL10 MG PO
[2018-07-03 18:34] VITALS: BP 131/74
[2018-07-03 19:14] LABS: BASO % 0.3 % (0.0-1.0); EOS # 0.4 10*3/uL (0.0-0.4); EOS % 4.5 % (1.0-4.0); HEMATOCRIT 51.3 % (42.0-52.0); HEMOGLOBIN 16.1 g/dl (14.0-18.0); LYMPH # 2.4 10*3/uL (1.3-4.4); LYMPH % 27.9 % (27.0-41.0); MEAN CELL VOLUME 89.8 fl (80.0-94.0); MEAN CORPUSCULAR HGB 28.2 pg (27.0-31.0); MEAN CORPUSCULAR HGB CONC 31.4 g/dl (33.0-37.0); MEAN PLATELET VOLUME 11.5 fl (9.6-12.3); MONO # 0.5 10*3/uL (0.1-1.0); MONO % 5.4 % (3.0-9.0); NEUT # 5.3 10*3/uL (2.3-7.9); NEUT % 61.7 % (47.0-73.0); PLATELET COUNT AUTOMATED 191 10*3/uL (130-400); RED BLOOD COUNT 5.71 10*6/uL (4.50-5.90); RED CELL DISTRI WIDTH 16.2 % (0-14.5); WHITE BLOOD COUNT 8.6 10*3/uL (4.8-10.8)
[2018-07-03 19:23] LABS: ACT PARTIAL THROMBO TIME 24.6 SECONDS (20.8-31.5)
[2018-07-03 19:41] LABS: ALBUMIN 2.9 gm/dl (3.1-4.5); ALKALINE PHOSPHATASE 99 U/L (45-117); BUN 5 mg/dl (7-24); CHLORIDE 104 mmol/L (98-107); CREATININE 0.85 mg/dL (0.70-1.30); POTASSIUM 4.2 mmol/L (3.5-5.1); SGOT/AST 21 IU/L (3-35); SGPT/ALT 23 U/L (12-78); SODIUM 142 mmol/L (136-145); TOTAL PROTEIN 6.4 gm/dL (6.4-8.2)
[2018-07-03 19:42] LABS: TROPONIN I < 0.015 ng/ml (<0.045)
[2018-07-03 19:45] VITALS: BP 114/77
--- NOTE | 2018-07-03 19:47 | NUR ---
THE PATIENT CAN NOT PROIVDE A URINE SAMPLE AT THE PRESENT TIME
[2018-07-03 19:59] VITALS: BP 114/77
[2018-07-03 20:00] VITALS: BP 135/85
--- NOTE | 2018-07-03 20:26 | NUR ---
THE PT HAD NOT BEEN ABLE TO PROVIDE A URINE SAMPLE
--- NOTE | 2018-07-03 20:29 | NUR ---
THE PATIENT IS A&OX3 AND DENIES ANY WOUNDS
[2018-07-03 20:30] VITALS: BP 114/77
[2018-07-03 20:45] VITALS: BP 135/85
--- NOTE | 2018-07-03 21:25 | NUR ---
A 67, admitted to , under the services of ROMULO Sanchez MD with a diagnosis of CHEST PAIN, COPD. Chief complaint is SOB, CHEST PAIN. Patient arrived via ambulatory from ER. Monitor applied. Initial assessment completed. Vital signs taken and recorded. ROMULO SANCHEZ MD notified of admission to the unit. Orders received. See assessment for past medical history, medications and allergies. Patient and/or family oriented to unit. [facility] visitation policy reviewed. Clothing/patient valuable form completed. KEEGAN CALDWELL
[2018-07-03] MEDS ORDERED: PROAIR HFA8.5 GM INH (21:34)
[2018-07-04] VITALS: BP 100/56
--- NOTE | 2018-07-04 09:00 | NUR ---
Parent Coach in to talk to patient. Patient states lives at home alone with friends checking in on him. There are 0 steps in the home. Physician: Dr. Miryam Rendon [facility] none Patient's level of ADLs: INDEPENDENT Patient has working utilities: yes DME: O2 @ 2L nc prn, portable O2 tanks, nebulizer, O2 supplier [facility] Follow-up physician's appointment after d/c: he prefers to make his own follow up appt after discharge Does patient want to access PORTAL?: no Discharge plan discussed with patient. He lives at home alone with his friends checking in on him. He is independent in his ADLs and ambulation. Discussed home health care services and he denies any home needs at this time. When medically stable he will be discharged to home. MIKEY FARAH
[2018-07-04 12:00] VITALS: BP 106/76
[2018-07-04 16:00] VITALS: BP 104/62
[2018-07-04 17:14] LABS: BILIRUBIN NEGATIVE (NEGATIVE); BLOOD 1+ (NEGATIVE); CLARITY CLEAR (CLEAR); COLOR YELLOW (YELLOW); GLUCOSE NEGATIVE (NEGATIVE); KETONE TRACE (NEGATIVE); LEUKO ESTERASE NEGATIVE (NEGATIVE); NITRITE NEGATIVE (NEGATIVE); PH 5.5 (5.0-9.0); UROBILINOGEN 0.2 E.U./dl (0.2-1.0)
[2018-07-04 17:24] LABS: MUCOUS TRACE
[2018-07-04 20:00] VITALS: BP 98/50
[2018-07-05] VITALS: BP 105/63
--- NOTE | 2018-07-05 09:00 | NUR ---
Custom Bike Builder in to see patient. No new needs or request at this time. He denies any home needs. When medically stable he will be discharged to home.
[2018-07-05 12:00] VITALS: BP 115/56
[2018-07-05 16:00] VITALS: BP 109/89
--- NOTE | 2018-07-05 16:33 | NUR ---
PATIENT WAS ASSESSED FOR THE USE OF HOME OXYGEN. AT REST ON ROOM AIR THE PATIENTS VITALS WERE: HEART RATE OF 89, SPO2 OF 90%, AND A BLOOD PRESSURE OF 104/75.THE PATIENT STOOD UP AT BEDSIDE AND DROPPED TO 88-89% IMMEDIATELY. DURING AMBULATION PATIENT DROPPED TO 85-86%. PATIENT WAS PLACED ON 2L NASAL CANNULA WAS ABLE TO RECOVER 88-90% INCREASED TO 3L NASAL CANNULA 90-93%, AND INCREASED TO 4L NASAL CANNULA AND MAINTAINED AT 94-95%. PATIENT DID COMPLAIN OF SHORTNESS OF BREATH, BUT NOT DIZZINESS, LIGHT HEADED. AFTER THE WALK PATIENTS VITALS WERE: HEART RATE 91, SPO2 93% ON 3LNASAL CANNULA ,AND BLOOD PRESSURE 109/89. PATIENT DOES QULIFY FOR HOME OXYGEN. SENDING INFORMATION TO HOME CARE COMPANY.
[2018-07-05 20:00] VITALS: BP 114/65
--- NOTE | 2018-07-05 20:00 | NUR ---
AAOX3. LUNGS VERY DIMINISHED; OCCASIONAL DRY COUGH NOTED. ABDOMEN OBESE WITH NORMOACTIVE BOWEL SOUNDS. PULSE OX 95%. PT. VOICES NO C/O AT THIS TIME. CALL LIGHT WITHIN REACH.
[2018-07-06] VITALS: BP 114/68
--- NOTE | 2018-07-06 | NUR ---
RESTING IN BED; PT. VOICES NO C/O AT THIS TIME. CALL LIGHT WITHIN REACH.
--- NOTE | 2018-07-06 04:00 | NUR ---
RESTING IN BED WITH EYES CLOSED. RESPIRATIONS EASY & UNLABORED ON ROOM AIR. NO DISTRESS NOTED; CALL LIGHT WITHIN REACH.
--- NOTE | 2018-07-06 06:00 | NUR ---
BLOOD SUGAR 112.
[2018-07-06 08:00] VITALS: BP 120/80
--- NOTE | 2018-07-06 10:02 | NUR ---
DR. MANJARREZ NOTIFIED OF CONSULT.
[2018-07-06 12:00] VITALS: BP 124/76
[2018-07-06 16:00] VITALS: BP 112/66
[2018-07-06 20:00] VITALS: BP 108/66
--- NOTE | 2018-07-06 20:00 | NUR ---
AAOX3 RESTING IN BED. 02 INTACT AT 2LPM VIA NASAL CANNULA; PULSE OX 93%. LUNGS DIMINISHED BILATERALLY; POOR AIR EXCHANGE. NO COUGH NOTED AT THIS TIME. PT. VOICES NO C/O AT THIS TIME; CALL LIGHT WITHIN REACH.
[2018-07-07] VITALS: BP 90/45
--- NOTE | 2018-07-07 06:00 | NUR ---
BLOOD SUGAR 125.
[2018-07-07 08:00] VITALS: BP 112/66
--- NOTE | 2018-07-07 08:40 | NUR ---
PT RESTING IN BED. NO DISTRESS NOTED/ WILL MONITOR CALL LIGHT WITHIN REACH
[2018-07-07 12:00] VITALS: BP 122/61
[2018-07-07 16:00] VITALS: BP 128/64
--- NOTE | 2018-07-07 17:59 | NUR ---
PT RESTING IN BED. WILL MONITOR
[2018-07-07 20:00] VITALS: BP 127/90
[2018-07-08] VITALS: BP 116/71
[2018-07-08] MEDS ORDERED: LEVAQUIN750 M1 PO (08:28)
[2018-07-08] MEDS ORDERED: PREDNISONE5 MG PO (08:28)
--- NOTE | 2018-07-08 08:55 | NUR ---
DR MANJARREZ IN TO SEE PT AT THIS TIME.
--- NOTE | 2018-07-08 09:30 | NUR ---
HOME O2 ASSESSMENT: PRE BP: 130/88, HR 102, RR 18, PULSE OX 93% ON ROOM AIR AT REST. AMBULATED PATIENT 10 FT, PULSE OX DECREASED TO 87% ON ROOM AIR. PLACED 2 L/M ON PATIENT SAT >89%, ON 3 L/M 94% WHILE AMBULATING. PATIENT APPEARED SLIGHTLY SHORT OF BREATH. POST BP: 140/76, HR 107, RR 20, PULSE OX 95% ON 2 L/M AT REST.
--- NOTE | 2018-07-08 11:10 | NUR ---
Discharge instructions reviewed with patient/family. Patient receptive and verbalizes understanding. Follow-up care arranged. Written instructions given to patient/family. IV site and fermenter champagne removed. YOANA SAENZ
[2018-09-11] MEDS ORDERED: MEDROL DOSEPAK4 MG PO (10:55)
[2018-09-11] MEDS ORDERED: AUGMENTIN 875-875 MG PO (10:55)
== END 2018-07-08 11:10 | disposition home or self-care (01) | DRG 191 ==
LOC: ED 18:33 → EDHOLD 20:20 → 4E 20:20
PROVIDERS: Physician Assistant; ADMIT Internal Medicine
DX: J44.1 Chronic obstructive pulmonary disease with (acute) exacerbation (principal); J96.10 Chronic respiratory failure, unspecified whether with hypoxia or hypercapnia; Z68.41 Body mass index [BMI] 40.0-44.9, adult; J44.0 Chronic obstructive pulmonary disease with (acute) lower respiratory infection; R73.9 Hyperglycemia, unspecified; I71.4 Abdominal aortic aneurysm, without rupture; F17.210 Nicotine dependence, cigarettes, uncomplicated; J20.9 Acute bronchitis, unspecified; E66.01 Morbid (severe) obesity due to excess calories; M19.90 Unspecified osteoarthritis, unspecified site; Z96.659 Presence of unspecified artificial knee joint; G47.33 Obstructive sleep apnea (adult) (pediatric); R91.8 Other nonspecific abnormal finding of lung field; Z83.3 Family history of diabetes mellitus; I71.2 Thoracic aortic aneurysm, without rupture; Z71.6 Tobacco abuse counseling; Z90.49 Acquired absence of other specified parts of digestive tract

== ENCOUNTER 2018-07-13 16:26 | Emergency (ER) | payer OTHER ==
[~2018-07-13] VITALS: Ht 187.9 cm; Wt 122.5 kg
[2018-07-13 16:26] VITALS: BP 149/73
[~2018-07-13 16:26] MED LIST changes: +PROAIR HFA8.5 GM INH
[2018-09-11] MEDS ORDERED: MEDROL DOSEPAK4 MG PO (10:55)
[2018-09-11] MEDS ORDERED: AUGMENTIN 875-875 MG PO (10:55)
== END 2018-07-13 18:09 | disposition left against medical advice (07) ==
LOC: ED 16:26
DX: J44.9 Chronic obstructive pulmonary disease, unspecified (principal); R60.0 Localized edema; M79.652 Pain in left thigh; M79.651 Pain in right thigh; I10 Essential (primary) hypertension; F17.210 Nicotine dependence, cigarettes, uncomplicated; Z79.899 Other long term (current) drug therapy; Z96.652 Presence of left artificial knee joint

== ENCOUNTER 2018-08-09 01:31 | Emergency (ER) | payer OTHER ==
--- NOTE | ~2018-08-09 | EKG ---
[place], [place] ELECTROCARDIOGRAM REPORT NAME: WEST YADAV UNIT #: [id number] ROOM: DOCTOR: EPIPHANY DRAFT REPORT BIRTHDATE: [birth year] [facility] Test Date: 2018-08-09 Test Time: 01:36:32 Pat Name: WEST YADAV Department: ER Room: 5 Gender: M Lead Technician: Vy Unger : 1950 Requested By: IRVIN JOEL Order Number: [id number] Reading MD: Kevin Weaver MD Measurements Intervals [place] Rate: 113 P: 68 [place]: 150 QRS: -81 QRSD: 136 T: 31 QT: 352 QTc: 483 Interpretive Statements Sinus tachycardia RBBB and LAFB Compared to ECG 07/03/2018 19:06:49 Sinus rhythm no longer present Atrial abnormality no longer present Electronically Signed On 08-09-2018 14:08:15 PST by Kevin Weaver MD CM:EKGRPT:ELECTROCARDIOGRAM REPORT [id number] 1408 IRVIN JOEL MD EPIPHANY DRAFT REPORT IRVIN JOEL MD
[2018-08-09 01:37] VITALS: BP 147/80
[2018-08-09 01:49] LABS: BASO # 0.1 10*3/uL (0.0-0.1); BASO % 0.4 % (0.0-1.0); EOS # 0.2 10*3/uL (0.0-0.4); EOS % 1.2 % (1.0-4.0); HEMATOCRIT 51.9 % (42.0-52.0); HEMOGLOBIN 16.8 g/dl (14.0-18.0); LYMPH % 32.1 % (27.0-41.0); MEAN CELL VOLUME 88.7 fl (80.0-94.0); MEAN CORPUSCULAR HGB 28.7 pg (27.0-31.0); MEAN CORPUSCULAR HGB CONC 32.4 g/dl (33.0-37.0); MEAN PLATELET VOLUME 11.6 fl (9.6-12.3); MONO % 6.3 % (3.0-9.0); NEUT # 9.2 10*3/uL (2.3-7.9); NEUT % 59.8 % (47.0-73.0); PLATELET COUNT AUTOMATED 229 10*3/uL (130-400); RED BLOOD COUNT 5.85 10*6/uL (4.50-5.90); RED CELL DISTRI WIDTH 15.3 % (0-14.5); WHITE BLOOD COUNT 15.4 10*3/uL (4.8-10.8)
[2018-08-09 01:59] LABS: ACT PARTIAL THROMBO TIME 24.7 SECONDS (20.8-31.5)
[2018-08-09 02:06] LABS: ALBUMIN 3.3 gm/dl (3.1-4.5); ALKALINE PHOSPHATASE 93 U/L (45-117); BUN 9 mg/dl (7-24); CHLORIDE 102 mmol/L (98-107); CREATININE 0.97 mg/dL (0.70-1.30); POTASSIUM 3.9 mmol/L (3.5-5.1); SGOT/AST 20 IU/L (3-35); SGPT/ALT 19 U/L (12-78); SODIUM 142 mmol/L (136-145); TOTAL PROTEIN 7.3 gm/dL (6.4-8.2)
[2018-08-09 02:14] LABS: TROPONIN I < 0.015 ng/ml (<0.045)
[2018-08-09] MEDS ORDERED: Motrin,Rufen800 MG PO (03:48)
[2018-08-09] MEDS ORDERED: PREDNISONE20 M1 PO (03:51)
[2018-08-09] MEDS ORDERED: LEVOFLOXACIN500 MG PO (03:58)
[2018-09-11] MEDS ORDERED: AUGMENTIN 875-875 MG PO (10:55)
[2018-09-11] MEDS ORDERED: MEDROL DOSEPAK4 MG PO (10:55)
[2018-11-14] MEDS ORDERED: COREG3.125 MG PO (08:10)
[2018-11-14] MEDS ORDERED: XARE15TA PO (08:10)
== END 2018-08-09 04:17 | disposition home or self-care (01) ==
LOC: ED 01:31
PROVIDERS: Emergency Medicine Emergency Medical Services
DX: J44.1 Chronic obstructive pulmonary disease with (acute) exacerbation (principal); M70.62 Trochanteric bursitis, left hip; I10 Essential (primary) hypertension; G89.29 Other chronic pain; F17.200 Nicotine dependence, unspecified, uncomplicated; Z90.49 Acquired absence of other specified parts of digestive tract; Z79.899 Other long term (current) drug therapy; Z79.2 Long term (current) use of antibiotics; Y93.89 Activity, other specified

== ENCOUNTER 2018-10-19 13:06 | Inpatient (IN) | payer OTHER ==
[~2018-10-19] VITALS: Ht 187.9 cm; Wt 138.8 kg
--- NOTE | ~2018-10-19 | PR ---
[place], [place] PROGRESS NOTE NAME: WEST YADAV UNIT #: [id number] ROOM: 420 DOCTOR: MORA HANKINS MD BIRTHDATE: [birth year] DOS: 10/25/2018 SUBJECTIVE: The patient is feeling better, waiting to be transferred to nursing facility for continued antibiotics. OBJECTIVE: GENERAL APPEARANCE: The patient is alert and oriented x 3, in no visible distress. VITAL SIGNS: Blood pressure 126/79, heart rate of 72 beats per minute, breathing 20 times per minute, temperature 98 degrees Fahrenheit. HEENT AND NECK: Exam within normal limits. CARDIOVASCULAR SYSTEM: Heart rate is regular in rate and rhythm. S1 and S2 normally audible. LUNGS: Decreased breath sounds all over on lung auscultation. ABDOMEN: Soft, nontender. No obvious organomegaly. Bowel sounds are present. EXTREMITIES: Without significant cyanosis or edema. IMPRESSION: 1. Acute exacerbation of severe underlying chronic obstructive pulmonary disease with acute over chronic respiratory failure, being treated with bronchodilators, corticosteroids, oxygen, antibiotics, and is improving. 2. The patient with Staphylococcus epidermidis bacteremia, positive blood cultures, normal ELVA, recommended cefazolin 2 grams daily until 11/03/2018. The patient is waiting for transfer to [facility]. 3. Nicotine smoke dependence. The patient encouraged to stop smoking cigarettes. 4. Adult failure to thrive, obesity and generalized weakness. The patient is working with physical therapy. 5. Benign essential hypertension, treated and controlled. MORA HANKINS MD CM:PNTRANS 1230 1605 MORA HANKINS MD 10/25/18 1603 interface
--- NOTE | ~2018-10-19 | EKG ---
[place], [place] ELECTROCARDIOGRAM REPORT NAME: WEST YADAV UNIT #: [id number] ROOM: 420 DOCTOR: MAKI DRAFT REPORT BIRTHDATE: [birth year] [facility] Test Date: 2018-10-19 Test Time: 13:15:19 Pat Name: WEST YADAV Department: Room: 420 Gender: M Hair Or Beauty Salon Manager: : 1950 Requested By: ARPITA GLOVER Order Number: [id number] Reading MD: Yaron Eduardo Measurements Intervals [place] Rate: 106 P: 90 [place]: 160 QRS: -85 QRSD: 136 T: 3 QT: 359 QTc: 477 Interpretive Statements Sinus tachycardia LAE, consider biatrial enlargement RBBB and LAFB Compared to ECG 09/08/2018 23:27:43 Electronically Signed On 10-20-2018 9:00:27 PDT by Yaron Eduardo CM:EKGRPT:ELECTROCARDIOGRAM REPORT 1315 0900 ARPITA GAMBINO DRAFT REPORT ARPITA GLOVER MD
--- NOTE | ~2018-10-19 | EKG ---
[place], [place] ELECTROCARDIOGRAM REPORT NAME: WEST YADAV UNIT #: [id number] ROOM: 420 DOCTOR: MAKI DRAFT REPORT BIRTHDATE: [birth year] [facility] Test Date: 2018-10-19 Test Time: 16:20:55 Pat Name: WEST YADAV Department: Room: 420 Gender: M Stamping Press Operator: YUSUF : 1950 Requested By: ARPITA GLOVER Order Number: [id number] Reading MD: Yaron Eduardo Measurements Intervals [place] Rate: 90 P: 84 [place]: 166 QRS: -69 QRSD: 144 T: -18 QT: 411 QTc: 503 Interpretive Statements Sinus rhythm RBBB and LAFB Compared to ECG 09/08/2018 23:27:43 No significant changes Electronically Signed On 10-20-2018 9:00:38 PDT by Yaron Eduardo CM:EKGRPT:ELECTROCARDIOGRAM REPORT 1620 0900 ARPITA GAMBINO DRAFT REPORT ARPITA GLOVER MD
--- NOTE | ~2018-10-19 | PR ---
[place], [place] PROGRESS NOTE NAME: WE[facility] YADAV UNIT #: [id number] ROOM: 420 DOCTOR: MORA HANKINS MD BIRTHDATE: [birth year] DOS: SUBJECTIVE: The patient continues to be short of breath. His blood culture has turned out to be positive. OBJECTIVE: GENERAL APPEARANCE: The patient is alert and oriented x 3, in no visible distress. Generalized weakness. VITAL SIGNS: Blood pressure 100/62, heart rate 93 beats per minute, breathing 20 times per minute, temperature 98 degrees Fahrenheit. HEENT AND NECK: Exam within normal limits. CARDIOVASCULAR SYSTEM: Heart rate is regular in rate and rhythm. S1 and S2 normally audible. LUNGS: Decreased breath sounds and expiratory wheezing.. ABDOMEN: Soft, nontender. No obvious organomegaly. Bowel sounds are present. EXTREMITIES: Without significant cyanosis or edema. IMPRESSION AND PLAN: 1. The patient with acute exacerbation of chronic obstructive pulmonary disease with acute over chronic respiratory failure, being treated with bronchodilators, Solu-Medrol, Rocephin and vancomycin. Blood cultures positive for gram-positive cocci in pairs and clusters being treated with IV vancomycin. We are waiting for repeat blood cultures. 2. Nicotine smoke dependence. The patient encouraged to stop smoking cigarettes. He smokes 1 pack of cigarettes a day. 3. Adult failure to thrive and obesity. The patient is working with physical therapy. 4. Benign essential hypertension, treated and controlled. MORA HANKINS MD CM:PNTRANS [phone] MORA HANKINS MD 10/21/18 1633 interface
--- NOTE | ~2018-10-19 | PR ---
[place], [place] PROGRESS NOTE NAME: [facility] UNIT #: [id number] ROOM: 420 DOCTOR: CR OSORIO,MORA Marques BIRTHDATE: [birth year] DOS: 10/22/2018 SUBJECTIVE: The patient is starting to breathe better. OBJECTIVE: VITAL SIGNS: Blood pressure 140/78, heart rate of 99 beats per minute, breathing normally, afebrile. IMPRESSION: 1. The patient with Staphylococcus epi, positive blood cultures. ELVA performed today showed no signs of infection. No evidence of endocarditis. 2. Acute exacerbation of chronic obstructive pulmonary disease with acute over chronic respiratory failure, being treated with antibiotics, corticosteroids. 3. Nicotine smoke dependence. The patient has been encouraged to stop. 4. Adult failure to thrive, obesity, generalized weakness. The patient working with Physical Therapy. 5. Benign essential hypertension, treated and controlled. MORA HANKINS MD CM:PNTRANS [phone] MORA HANKINS MD 10/23/18 0406 interface
--- NOTE | ~2018-10-19 | EKG ---
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
--- NOTE | ~2018-10-19 | PR ---
[place], [place] PROGRESS NOTE NAME: [facility] UNIT #: [id number] ROOM: 420 DOCTOR: CHRISTA JARA MD BIRTHDATE: [birth year] DOS: 10/22/2018 PULMONARY PROGRESS NOTE SUBJECTIVE: He has been planned for the transesophageal echocardiogram to be done by the Cardiology Service recommended by the Infectious Disease Service for the assessment of the current Staph bacteremia. Shortness of breath and cough have been noted decreased, but not resolved. Denies symptoms of chest pain, fever or chills. OBJECTIVE: VITAL SIGNS: Normal temperature, respiratory rate 27, heart rate 82, blood pressure 92/63. Pulse oxygen saturation on 3 liters nasal cannula 95% saturation. HEENT: Examination shows head was atraumatic. Eyes nonicterus. NECK: Supple. CARDIOVASCULAR SYSTEM: S1, S2 is audible. LUNGS: The patient was noted without any wheezing or crackles at the present time. Breaths are noted mildly decrease in the lungs bilaterally. ABDOMEN: Soft, nontender. Bowel sounds present. EXTREMITIES: No new change. Chronic obesity. IMPRESSION: 1. The patient with bacteremia that was noted with recent blood cultures on admission as Staphylococcus epidermidis on 10/19/2018. 2. Acute exacerbation of chronic obstructive pulmonary disease and bronchitis. Sputum culture was pending at this time. The Gram stain yesterday, many white blood cells with moderate epithelial cells with gram-positive cocci in pairs and clusters chains. PLAN OF MANAGEMENT: Continue current plan of management, antibiotics, bronchodilators, oxygen supplementation and other treatment. Await the results of the transesophageal echocardiogram. The patient has already been ordered CT scan of the chest, abdomen and pelvis by the Infectious Disease specialist that will be assessed once available. Continue in the meantime current plan of management except reduction of Solu-Medrol 40 mg b.i.d. dosing because of reduction of the wheezing noted on today's exam. [place], [place] PROGRESS NOTE NAME: [facility] UNIT #: [id number] ROOM: 420 DOCTOR: CHRISTA JARA MD BIRTHDATE: [birth year] CHRISTA MANJARREZ MD CM:PNTRANS [phone] CHRISTA SWANSON MD 10/23/18 0119 interface
--- NOTE | ~2018-10-19 | DS ---
[place], [place] DISCHARGE SUMMARY [id number] UN[facility] #: [id number] ROOM: 420 DOCTOR: MORA HANKINS MD BIRTHDATE: [birth year] DOS: 10/30/2018 DISCHARGE DIAGNOSES: 1. Acute exacerbation of chronic obstructive pulmonary disease with acute over chronic respiratory failure. 2. Continued nicotine smoke dependence. 3. Staphylococcus epidermidis bacteremia with positive blood cultures, being treated with cefazolin 2 grams daily until 11/03/2018. 4. Adult failure to thrive. 5. Benign essential hypertension. 6. End-stage chronic obstructive pulmonary disease with nicotine smoke dependence and oxygen dependence. 7. History of opioid dependence. The patient remains on Suboxone. 8. A 4.5 cm thoracic aortic aneurysm. 9. Morbid obesity, BMI of 41.7. 10. Mild protein-calorie malnutrition, albumin level of 2.8. HOSPITAL COURSE: The patient admitted when he presented with increased shortness of breath, wheezing for 3-4 days of cough, chest congestion and purulent sputum. Sputum was sent for cultures. Dr. Mena, the strategic account director evaluated the patient and his breathing has significantly improved. The patient has continued tendency to smoke cigarettes, even when he is nonsmoking facility, he smells of cigarette smoked today on the day of discharge and he plans to continue to smoke cigarettes. Staphylococcus epidermidis, positive blood cultures and bacteremia, evaluated by Infectious Disease specialist and he was recommended IV Ancef until 11/03/2018, so the patient is going to [facility] to continue the antibiotic. Adult failure to thrive and generalized weakness, treated with physical therapy. Chronic respiratory failure with oxygen dependence. Nicotine smoke dependence. The patient encouraged to stop smoking cigarettes and help was offered. The patient states no treatment has worked for him. Mild protein-calorie malnutrition. The patient worked with dietary. LABORATORY DATA: Chest x-ray with no infiltrates. BUN and creatinine has been normal. Latest cultures were negative. DISCHARGE MANAGEMENT: Two grams of IV cefazolin daily until 11/03/2018, lisinopril 10 mg a day, DuoNeb q.i.d., nicotine patch 21 mg daily, Ventolin 2 puffs q.i.d. p.r.n., Pulmicort 0.5 mg b.i.d. with DuoNeb. [place], [place] DISCHARGE SUMMARY NAME: WE[facility] YADAV UNIT #: [id number] ROOM: 420 DOCTOR: MORA HANKINS MD BIRTHDATE: [birth year] MORA HANKINS MD CM:BEVERLY [phone] MORA HANKINS MD 10/30/18 175 interface
--- NOTE | ~2018-10-19 | PR ---
[place], [place] PROGRESS NOTE [id number]IT #: [id number] ROOM: 420 DOCTOR: LOKI SWANSON MD,CHRISTA BIRTHDATE: [birth year] DOS: 10/29/2018 SUBJECTIVE: The patient has been comfortably resting at this time in the bed. He has not been reported any symptoms of fever or chills, coughing or any sputum expectoration. He has been getting intravenous antibiotic for bacteremia as well. Denies symptoms of hemoptysis. OBJECTIVE: VITAL SIGNS: Which are recorded showed the temperature noted as normal. The respiratory rate of the patient recorded as 20, heart rate of 73, blood pressure 101/72 to 101/63. Pulse oxygen saturation recorded on room air as 90% saturation. HEENT: Examination shows head was atraumatic. Eyes nonicterus. NECK: Supple. CARDIOVASCULAR: S1, S2 audible. LUNGS: The patient was noted without any wheezing or crackles. ABDOMEN: Soft, nontender, and obese. EXTREMITIES: The patient noted without any acute edema. IMPRESSION: 1. The patient with resolving bacteremia improvement in acute exacerbation of chronic obstructive pulmonary disease with gradual and progression, history of chronic nicotine dependence. 2. 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 PLAN OF MANAGEMENT: No changes in the plan of care at this time will be recommended. Still awaiting the patient authorization and transfer to fpc facility. In the meantime, continue current plan of management as in progress. CHRISTA MANJARREZ MD CM:PNTRANS [phone] CHRISTA SWANSON MD 10/29/18 1535 interface
--- NOTE | ~2018-10-19 | PR ---
[place], [place] PROGRESS NOTE NAME: [facility] Y[facility]AV UNIT #: [id number] ROOM: 420 DOCTOR: MORA HANKINS MD BIRTHDATE: [birth year] DOS: 10/29/2018 SUBJECTIVE: The patient continues to feel better. OBJECTIVE: VITAL SIGNS: Blood pressure 110/72, breathing 20 times per minute, heart rate of 73 beats per minute, temperature 98.2 degrees Fahrenheit. GENERAL APPEARANCE: Obesity. The patient is alert and oriented x 3, in no visible distress. HEENT AND NECK: Exam within normal limits. CARDIOVASCULAR SYSTEM: Heart rate is regular in rate and rhythm. S1 and S2 normally audible. LUNGS: Decreased breath sounds. Patient wearing oxygen. ABDOMEN: Soft, nontender. No obvious organomegaly. Bowel sounds are present. EXTREMITIES: Without significant cyanosis or edema. IMPRESSION: 1. The patient with acute exacerbation of severe underlying chronic obstructive pulmonary disease with acute over chronic respiratory failure, continues to improve. 2. Staphylococcus epidermidis bacteremia, positive blood cultures, being treated with cefazolin until 11/03/2018. The patient waiting for residential qualification and transfer. 3. Adult failure to thrive. The patient with generalized weakness. The patient working with physical therapy. We are taking fall and bed sore precaution. 4. Benign essential hypertension, treated and controlled. MORA HANKINS MD CM:PNTRANS [phone] MORA HANKINS MD 10/30/18 0105 interface
--- NOTE | ~2018-10-19 | PR ---
[place], [place] PROGRESS NOTE NAME: [facility] YADAV UNIT #: [id number] ROOM: 420 DOCTOR: LOKI SWANSON MD,CHRISTA BIRTHDATE: [birth year] DOS: 10/24/2018 SUBJECTIVE: He has been comfortably resting in the bed this morning. The patient denies symptoms of chest pain. Coughing has been improving gradually. Shortness breath and wheezing were improving. There were no symptoms of chest pain. OBJECTIVE: VITAL SIGNS: Normal temperature, respiratory rate 17, heart rate 85, blood pressure 152/84-118/77. The pulse oxygen saturation was recorded as 94% saturation on 2 liters nasal cannula. HEENT: Shows chronic obesity. NECK: Supple. CARDIOVASCULAR: S1, S2 audible. LUNGS: The patient was noted without any wheezing or crackles today. ABDOMEN: Soft, nontender. EXTREMITIES: Without any acute edema. IMPRESSION: 1. Staph infection, which has been currently treated with antibiotics. Sputum culture noted normal trace today. 2. Resolving acute exacerbation of chronic obstructive pulmonary disease. 3. Acute and chronic O2 dependent. 4. Hepatitis C positivity was noted yesterday as well. 5. Chronic obesity. 6. Suspicion of obstructive sleep apnea disorder. PLAN OF TREATMENT: No changes in the plan of treatment at this time. Continue current plan of care at this time as in progress. Usual care, other supportive plan of treatment and therapies and care. CHRISTA MANJARREZ MD CM:PNTRANS [phone] CHRISTA SWANSON MD 10/24/18 1500 interface
--- NOTE | ~2018-10-19 | PR ---
[place], [place] PROGRESS NOTE NAME: WE[facility] YADAV UNIT #: [id number] ROOM: 420 DOCTOR: LOKI SWANSON MD,CHRISTA BIRTHDATE: [birth year] DOS: 10/30/2018 SUBJECTIVE: He has been doing well at this time without any acute distress, resting comfortably on the bed. He denies symptoms of fever, chills, coughing or any sputum expectoration. He has been continued on intravenous antibiotics. The patient was planned for discharge and admission to the intermediate facility today. As the authorization, the patient has been approved by the insurance. OBJECTIVE: VITAL SIGNS: For the patient this morning, normal temperature, respiratory rate 18, heart rate 59, blood pressure 116/64. The pulse oxygen saturation is normal. HEENT: Head was atraumatic. Eyes nonicterus. NECK: Supple. CARDIOVASCULAR: S1, S2 audible. LUNGS: Without any wheezing or crackles at the present time. ABDOMEN: Soft, nontender. EXTREMITIES: Chronic obesity. IMPRESSION: 1. The patient with stable respiratory status, resolution of acute exacerbation of chronic obstructive pulmonary disease, improving. 2. Bacteremia, receiving IV antibiotics. PLAN OF TREATMENT: No changes in plan of care at this time. Continue the patient's current therapy as previously. Usual care, other supportive plan of management and care. CHRISTA MANJARREZ MD CM:PNTRANS 1236 CHRISTA SWANSON MD 10/31/182 interface
--- NOTE | ~2018-10-19 | PR ---
[place], [place] PROGRESS NOTE NAME: WE[facility] YADAV UNIT #: [id number] ROOM: 420 DOCTOR: LOKI SWANSON MD,CHRISTA BIRTHDATE: [birth year] DOS: 10/25/2018 PULMONARY PROGRESS NOTE SUBJECTIVE: The patient is noted comfortable at this time, resting on the bed without any acute distress this morning. He has not been noted symptoms of chest pain. Coughing and wheezing continue to resolve progressively. There were no symptoms of hemoptysis. OBJECTIVE: VITAL SIGNS: Which were recorded showed normal temperature, respiratory rate of 20, heart rate 72, blood pressure 126/79. Pulse oxygen saturation on 2 liters nasal cannula was 94% saturation. HEENT: Head was atraumatic, eyes nonicterus. NECK: Supple. CARDIOVASCULAR: S1 and S2 audible. LUNGS: Without any crackles, rhonchi, or wheezing. Lungs were noted clear. ABDOMEN: Soft, nontender. Bowel sounds present. EXTREMITIES: No new change. LABORATORY DATA: BMP today, BUN normal, creatinine normal, CO2 35. IMPRESSION: 1. Stable respiratory status, resolving acute exacerbation of chronic obstructive pulmonary disease, acute tracheobronchitis, bacteremia with staph species, currently treated with IV cefazolin. 2. Chronic obesity. 3. The patient with secondary polycythemia, most likely secondary to chronic hypoxia. PLAN OF MANAGEMENT: Oxygen assessment needs to be made for this patient. The patient also needs assessment for sleep apnea disorder as an outpatient. CHRISTA MANJARREZ MD CM:PNTRANS [phone] CHRISTA SWANSON MD 10/26/18 0150 interface
--- NOTE | ~2018-10-19 | PR ---
[place], [place] PROGRESS NOTE NAME: WE[facility] YADAV UNIT #: [id number] ROOM: 420 DOCTOR: MORA HANKINS MD BIRTHDATE: [birth year] DOS: 10/20/2018 SUBJECTIVE: The patient's breathing is improving with treatment. OBJECTIVE: GENERAL APPEARANCE: The patient is alert and oriented x 3, in no visible distress. VITAL SIGNS: Blood pressure 103/62, heart rate of 92 beats per minute, breathing 18 times per minute, temperature 98 degrees Fahrenheit. HEENT AND NECK: Exam within normal limits. CARDIOVASCULAR SYSTEM: Heart rate is regular in rate and rhythm. S1 and S2 normally audible. LUNGS: Decreased breath sounds all over on lung auscultation, the patient wearing oxygen by nasal cannula. ABDOMEN: Soft, nontender. No obvious organomegaly. Bowel sounds are present. EXTREMITIES: Without significant cyanosis or edema. IMPRESSION: 1. Gram-positive cocci in clusters on the blood culture. Infectious Disease specialist, Dr. Agarwal consulted. The patient started on vancomycin and ceftriaxone and more cultures were ordered along with HIV and hepatitis screen. 2. Leukocytosis with white cell count of 15,800, related to infection. 3. Nicotine smoke dependence. The patient encouraged to stop smoking cigarettes. 4. Urine drug screen positive for cocaine. The patient encouraged to stop. 5. Advanced adult failure to thrive and obesity. The patient to work with physical therapy. 6. Acute exacerbation of chronic obstructive pulmonary disease with chronic respiratory failure. Dr. Mena to be consulted to follow. 7. Benign essential hypertension, treated and controlled. MORA HANKINS MD CM:PNTRANS [phone] MORA HANKINS MD 10/21/18 1620 interface
--- NOTE | ~2018-10-19 | PR ---
[place], [place] PROGRESS NOTE NAME: WE[facility] YADAV UNIT #: [id number] ROOM: 420 DOCTOR: MORA HANKINS MD BIRTHDATE: [birth year] DOS: 10/24/2018 SUBJECTIVE: The patient waiting for transfer to [facility] after paperwork is complete, is feeling better. OBJECTIVE: VITAL SIGNS: Blood pressure 128/75, heart rate of 88 beats per minute, breathing 20 times per minute, temperature 98.2 degrees Fahrenheit. GENERAL APPEARANCE: Morbid obesity. Generalized weakness. The patient is alert and oriented x 3, in no visible distress. HEENT AND NECK: Exam within normal limits. CARDIOVASCULAR SYSTEM: Heart rate is regular in rate and rhythm. S1 and S2 normally audible. LUNGS: Clear to auscultation. ABDOMEN: Soft, nontender. No obvious organomegaly. Bowel sounds are present. EXTREMITIES: Without significant cyanosis or edema. IMPRESSION: 1. Acute exacerbation of chronic obstructive pulmonary disease, with acute over chronic respiratory failure, continues to improve with treatment with antibiotics, oxygen, corticosteroids and bronchodilators. 2. The patient with Staph epidermidis bacteremia with normal ELVA, recommended IV cefazolin 2 grams daily until November 03. 3. The patient waiting for long term facility transfer. 4. Nicotine smoke dependence. The patient encouraged to stop smoking cigarettes. 5. Adult failure to thrive, obesity and generalized weakness. The patient working with physical therapy. 6. Benign essential hypertension, treated and controlled. Blood pressure staying normal. MORA HANKINS MD CM:PNTRANS [phone] MORA HANKINS MD 10/25/18 0003 interface
--- NOTE | ~2018-10-19 | PR ---
[place], [place] PROGRESS NOTE NAME: WE[facility] YADAV UNIT #: [id number] ROOM: 420 DOCTOR: LOKI SWANSON MD,CHRISTA BIRTHDATE: [birth year] DOS: 10/26/2018 SUBJECTIVE: He has been noted comfortable at this time without any acute distress, resting on his bed. Not been noted any symptoms of fever or chills. Denies symptoms of nausea or vomiting. OBJECTIVE: VITAL SIGNS: For the patient, which has been recorded shows a normal temperature, respiratory rate 18, heart rate of 79, blood pressure 140/69. Pulse oxygen saturation recorded as 91% saturation. HEENT: Examination shows head was atraumatic. Eyes nonicterus. NECK: Supple and obese. CARDIOVASCULAR: S1, S2 audible. LUNGS: The patient was noted without any wheezing or crackles. ABDOMEN: Soft, nontender. Bowel sounds present. EXTREMITIES: No acute change. IMPRESSION: Stable respiratory status, resolving bacteremia, Staph epidermidis. Improved acute exacerbation of chronic obstructive pulmonary disease. PLAN OF TREATMENT: No changes in the plan of care at this time. Continue current therapy as previously in progress. Usual care. CHRISTA MANJARREZ MD CM:JULIANNE [phone] CHRISTA SWANSON MD 10/27/18 0458 interface
--- NOTE | ~2018-10-19 | PR ---
[place], [place] PROGRESS NOTE NAME: WE[facility] YADAV UNIT #: [id number] ROOM: 420 DOCTOR: MORA HANKINS MD BIRTHDATE: [birth year] DOS: 10/23/2018 OBJECTIVE: VITAL SIGNS: Blood pressure 106/62, heart rate of 82 beats per minute, breathing 17 times per minute, and temperature 98.2 degrees Fahrenheit. GENERAL: Generalized weakness. HEENT AND NECK: Exam within normal limits. CARDIOVASCULAR SYSTEM: Heart rate is regular in rate and rhythm. S1 and S2 normally audible. LUNGS: Decreased breath sounds all over, some expiratory wheezing. ABDOMEN: Soft, nontender. No obvious organomegaly. Bowel sounds are present. EXTREMITIES: Without significant cyanosis or edema. IMPRESSION AND PLAN: 1. The patient with acute exacerbation of severe underlying chronic obstructive pulmonary disease with acute over chronic respiratory failure, improving with treatment, with antibiotics, corticosteroids, and bronchodilators. 2. The patient's Staph epidermidis bacteremia status post ELVA, recommended IV cefazolin 2 g every 8 hours for 2 weeks at home. PICC line to be placed and social and political studies professor case management working on arranging home IV antibiotics, working care home placement. 3. Nicotine smoke dependence. The patient encouraged to stop smoking cigarettes. 4. Generalized adult failure to thrive, obesity, weakness. The patient is working with physical therapy. 5. Benign essential hypertension, being followed and treated. MORA HANKINS MD CM:PNTRANS 06 [phone] MORA HANKINS MD 10/24/18 0942 interface
--- NOTE | ~2018-10-19 | PR ---
[place], [place] PROGRESS NOTE NAME: WE[facility] YADAV UNIT #: [id number] ROOM: 420 DOCTOR: LOKI SWANSON MD,CHRISTA BIRTHDATE: [birth year] DOS: 10/27/2018 SUBJECTIVE: The patient noted comfortable at this time, resting on the bed this morning. Had not been noted any ongoing acute symptoms of coughing, shortness breath or chest pain. OBJECTIVE: VITAL SIGNS: Normal temperature, respiratory rate 17, heart rate 83, blood pressure 118/75. Pulse ox saturation on 2 liters nasal cannula 97% saturation recorded. HEENT: Head was atraumatic. Chronic obesity. NECK: Supple. CARDIOVASCULAR: S1, S2 audible. LUNGS: Noted clear of any wheezing or crackles. ABDOMEN: Soft, nontender. IMPRESSION: 1. Staphylococcus epidermidis bacteremia, which has been resolving, currently treated with IV cefazolin. 2. Improving acute exacerbation of chronic obstructive pulmonary disease as well. 3. Suspected obstructive sleep apnea disorder. PLAN OF MANAGEMENT: No changes in the plan of care. Continue current therapy, plan and management. The patient is currently awaiting for transfer and admission to the fpc facility, which was pending. CHRISTA MANJARREZ MD CM:PNTRANS [phone] CHRISTA SWANSON MD 10/27/18 1505 interface
--- NOTE | ~2018-10-19 | PR ---
[place], [place] PROGRESS NOTE NAME: WEST YADAV UNIT #: [id number] ROOM: 420 DOCTOR: LOKI SWANSON MD,CHRISTA BIRTHDATE: [birth year] DOS: 10/28/2018 PULMONARY PROGRESS NOTE SUBJECTIVE: The patient was noted comfortable at this time, resting on the bed without any acute distress. This morning of assessment has not been reported any symptoms of chest pain, fever or chills. OBJECTIVE: VITAL SIGNS: For the patient, which are recorded shows normal temperature, respiratory rate 16-17, blood pressure 102/64. Pulse ox saturation noted 94%. HEENT: Examination shows head was atraumatic. Eyes nonicterus. NECK: Supple. CARDIOVASCULAR: S1, S2 audible. LUNGS: Without any wheeze or crackles at this time. ABDOMEN: Soft, nontender. Bowel sounds present. EXTREMITIES: Without any acute change. Chronic obesity findings. IMPRESSION: 1. The patient who has been currently noted with resolving acute exacerbation of chronic obstructive pulmonary disease and acute bacteremia with Gram-positive organism, responding to treatment. History of tobacco use. 2. Suspected diagnosis of pulmonary embolism. PLAN OF MANAGEMENT: No changes in plan of care at this time would be needed. The patient will be continued on current therapy, plan of management previously. Usual care. All other supportive plan of management. CHRISTA MANJARREZ MD CM:PNTRANS [phone] [id number] CHRISTA SWANSON MD 11/11/18 1031 interface
--- NOTE | ~2018-10-19 | CON ---
[place], [place] REPORT OF CONSULTATION NAME: WE[facility] YADAV UNIT #: [id number] ROOM: 420 DOCTOR: LOKI SWANSON MDCHRISTA BIRTHDATE: [birth year] DOS: 10/21/2018 PULMONARY CONSULTATION EVALUATION: REASON FOR CONSULTATION: Assessment of ongoing acute respiratory symptoms of coughing, wheezing. HISTORY OF PRESENT ILLNESS: This is a 67-year-old male patient, known to me from the past. The patient was noted with chronic nicotine abuse and COPD. He has been admitted to the hospital and treated in 08/2018 with acute exacerbation of chronic obstructive pulmonary disease and bronchitis and then discharged home after improvement in symptom and he has been doing well except in the last 2-3 days, started with having increased coughing, chest congestion. The patient also reported symptoms of shortness of breath with that, but the cough has been noted moderate severe, nonproductive with excessive wheezing noted at rest and worsened with exertion. The patient was also complaining of symptoms of shortness of breath that has been getting progressively worse. He came into the Emergency Room where he has been assessed and admitted to the hospital for further medical management. Currently, the patient admitted to the hospital. The patient stated that the same symptoms, which has not been resolving. Blood culture, which has been done on admission was noted gram-positive cocci in clusters and currently treated with intravenous vancomycin. REVIEW OF SYSTEMS: CONSTITUTIONAL: Fatigue and tiredness noted. Denies symptoms of fever or chills. EYES: Denies burning, redness, or tenderness. EARS, NOSE, THROAT SYMPTOMS: Denies sore throat, hoarseness, otalgia, postnasal drainage or epistaxis. CARDIOVASCULAR: No anginal pain, edema, pain of the lower extremities. GASTROINTESTINAL: Dysphagia, nausea, vomiting, diarrhea, abdominal pain, hematemesis, melena, or hematochezia. GENITOURINARY: Denies dysuria, superpubic pain, hematuria. MUSCULOSKELETAL: No acute joint pain, redness, or tenderness. SKIN: No lesions or rashes reported. CENTRAL NERVOUS SYSTEM: Denies any headache, diplopia, syncopal episodes. Past medical history, surgical history, social history, and family history reviewed with the patient for my consultation dated on 09/10/2018 and they remained unchanged since then. CURRENT MEDICATIONS: Administered: 1. DuoNeb q.4 hours. 2. IV Rocephin. 3. Vancomycin. 4. Suboxone. DRUG ALLERGIES: No known drug allergies. PHYSICAL EXAMINATION: [place], [place] REPORT OF CONSULTATION NAME: WE[facility] YADAV UNIT #: [id number] ROOM: 420 DOCTOR: CHRISTA JAAR MD BIRTHDATE: [birth year] GENERAL: This is a 67-james-old white male patient who has been currently noted to be awake and alert without any acute distress. His height was recorded on admission by nursing staff 6 feet 2 inches, weight of 306 pounds, BMI 39.3. VITAL SIGNS: Normal temperature, respiratory 20-23, heart rate 85-90, blood pressure 113/63-160-100. Pulse oxygen saturation recorded on 3 liters nasal cannula 94% saturation at rest on room air was 89%. HEENT: Examination shows head was atraumatic. Eyes nonicterus. NECK: Supple. CARDIOVASCULAR: S1, S2 audible. LUNGS: The patient refused expiratory wheezing, no crackles. ABDOMEN: Soft, nontender. Bowel sounds present. EXTREMITIES: The patient was noted with chronic obesity without edema, clubbing, cyanosis. MUSCULOSKELETAL: Without any acute deformity. CENTRAL NERVOUS SYSTEMS: Cranial nerves 2-12 intact. LABORATORY DATA: PT/PTT on 10/19/2018 was normal. The CMP on admission 10/19/2018, sodium 135, otherwise normal. CBC on 10/19/2017, WBC count 15.8, hemoglobin 17.8, hematocrit 54.2, platelet count 163,000. Urine drug screen positive for cocaine. Blood culture, gram-positive cocci in cluster noted in both bottles. The chest x-ray, 1 view, which was done on 10/19/2018 noted without any acute abnormal process. IMPRESSION: 1. The patient will be currently admitted to the hospital noted with oral vitamin bacteremia with acute exacerbation of chronic obstructive pulmonary disease and acute bronchitis. There were no visible gross pulmonary nodule noted on the chest x-ray. 2. Chronic obesity as well. 3. History of illicit drug use including cocaine, tobacco dependency on pain medications as well. 4. The patient with moderate obesity. 5. Acute hypoxic respiratory failure secondary to acute exacerbation of chronic obstructive pulmonary disease noted from admission as well. PLAN OF MANAGEMENT: The patient was started on Solu-Medrol 40 mg every 8 hours. The patient receiving the Rocephin and vancomycin. Monitor culture results. If the culture will be noted positive CT scan of the chest will be done to exclude any pulmonary nodules, which cannot be seen for this patient with just a simple chest x-ray. In the meantime, continuation of the bronchodilators and oxygen supplementation of the plan of management. Obtain the sputum for Gram stain and culture as well, most of the cough has been reported nonproductive. However, sputum will be collected for the patient. The able to expectorate sputum. Also, to help mobilize secretion and expectorate sputum. Changing the DuoNeb for the patient to albuterol sulfate for the exacerbation of COPD management. Other additional treatment changes will be made based on the progression of the illness. Thanks for allowing me to participate in the care of this patient. [place], [place] REPORT OF CONSULTATION NAME: WE[facility] YADAV UNIT #: [id number] ROOM: 420 DOCTOR: CHRISTA JARA MD BIRTHDATE: [birth year] ADDENDUM IMPRESSION: Polycythemia was noted most exactly chronic hypoxia as well with nonuse of oxygen. The patient was also noted with a possible suggestion of obstructive sleep apnea will need to further assess. PLAN OF TREATMENT: Monitor hemoglobin and hematocrit closely as well with the labs. Continue the oxygen supplementation. Tobacco cessation for this patient was encouraged. Nicotine replacement patches was also ordered. Nicotine replacement therapy. The patient will continue nicotine withdrawal. Other additional treatment changes, continue to be made based on progression of the illness. CHRISTA MANJARREZ MD CM:CONSTR:REPORT OF CONSULTATION 0749 11/11/18 1029 interface
--- NOTE | ~2018-10-19 | WRIGHTHP ---
[place], [place] PATIENT HISTORY AND PHYSICAL EXAM NAME: WE[facility] YADAV [facility] #: [id number] UNIT #: [id number] ROOM: 420 DOCTOR: MORA HANKINS MD BIRTHDATE: [birth year] DOS: 10/19/2018 HISTORY OF PRESENT ILLNESS: 1. The patient is a 67-year-old gentleman with a past medical history of severe end-stage chronic obstructive pulmonary disease and chronic respiratory failure. 2. Oxygen dependence. 3. Benign essential hypertension. 4. History of opioid dependence in the past. The patient takes Suboxone. 5. Nicotine smoke dependence. 6. A 4.5 cm thoracic aortic aneurysm. 7. Morbid obesity, BMI of 41.7. 8. Mild protein calorie malnutrition with albumin level of 2.8. The patient presented to the Emergency Department with increased shortness of breath for about 3-4 days, wheezing, cough, chest congestion and purulent sputum. The patient was evaluated in the ER and recommended for admission and further management. No chest pain, no dizziness or fainting episode. No other GI or urinary symptoms. REVIEW OF SYSTEMS: RESPIRATORY: Increasing shortness of breath, wheezing, and chest congestion. GASTROINTESTINAL: No nausea, vomiting, diarrhea, constipation. CARDIOVASCULAR: No chest pains or palpitations. HOME MEDICATIONS: The patient takes Suboxone and albuterol inhalers. ALLERGIES: No known drug allergies. PHYSICAL EXAMINATION: GENERAL: Alert and oriented x 3, in no visible distress. Generalized weakness. The patient is morbidly obese with a BMI of 39.3. HEENT AND NECK: Extraocular movements are intact. Sclerae are anicteric. Oral mucosa is moist and clean. No obvious facial weakness. Neck is supple without any lymphadenopathy. No thyromegaly. No JVD. No carotid arterial bruits. LUNGS: Clear to auscultation. No wheezing. No rhonchi. Decreased breath sounds all over. On lung auscultation, there is some expiratory wheezing. CARDIOVASCULAR SYSTEM: Heart rate is regular in rate and rhythm. S1 and S2 normally audible. No significant murmur or any other abnormal cardiac sounds. ABDOMEN: Soft, nontender. No obvious organomegaly. Bowel sounds are present. No obvious herniation. EXTREMITIES: Without significant cyanosis or edema. Warm to touch. CENTRAL NERVOUS SYSTEM: Alert and oriented x 3. Cranial nerves II-XII are intact. Speech is normal. The patient is able to move all extremities. Normal muscle strength. Deep tendon reflexes are equal on both sides. Plantars were downgoing. LABORATORY DATA: Chest x-ray showing no acute process. Urine drug screen was positive for cocaine. Normal serum electrolytes. IMPRESSION: 1. Acute exacerbation of severe underlying disease with acute over chronic [place], [place] PATIENT HISTORY AND PHYSICAL EXAM [id number] UN[facility] #: [id number] ROOM: [facility] DOCTOR: MORA HANKINS MD BIRTHDATE: [birth year] respiratory failure, to be treated with corticosteroids, oxygen, nebulizer treatments and antibiotic and get a sputum culture. 2. Nicotine smoke dependence. The patient encouraged to stop smoking cigarettes. He smokes 1 pack of cigarettes a day. 3. Adult failure to thrive and obesity. The patient to work with physical therapy, ambulatory dysfunction. 4. Benign essential hypertension to be treated and controlled. Blood pressures are being monitored. MORA HANKINS MD CM:HISPHYS:PATIENT HISTORY AND PHYSICAL EXAMINATION 51 45 MORA HANKINS MD 10/19/181943 interface
--- NOTE | ~2018-10-19 | PR ---
[place], [place] PROGRESS NOTE NAME: [facility] YAD[facility] #: [id number] UNIT #: [id number] ROOM: 420 DOCTOR: LOKI SWANSON MDCHRISTA BIRTHDATE: [birth year] DOS: 10/23/2018 PULMONARY PROGRESS NOTE SUBJECTIVE: The patient's transesophageal echocardiogram completed yesterday. There was no evidence of endocarditis reported. He has been noted symptomatically better with reduction in coughing and wheezing. Denies symptoms of chest pain, headache, or diplopia. Denies symptoms of nausea, vomiting, diarrhea, abdominal pain, hematemesis, melena, or hematochezia. Denies any pain of the lower extremities. Remaining systems were reviewed, they were noted all negative. OBJECTIVE: VITAL SIGNS: Which are recorded show normal temperature, respiratory rate of 18, heart rate of 93, blood pressure 103/56. Pulse oxygen saturation on room air is 96% saturation. HEENT: Examination shows head is atraumatic. Eyes nonicterus. NECK: Supple. CARDIOVASCULAR: S1 and S2 audible. LUNGS: Without any wheezing or crackles at the present time. Resolution of these noted on previous examination. ABDOMEN: Soft, nontender. Bowel sounds present. EXTREMITIES: No new change. MUSCULOSKELETAL: Without acute deformities. CENTRAL NERVOUS SYSTEM: Cranial nerves 2 through 12 intact. SKIN: Without any lesions or rashes. LABORATORY AND DIAGNOSTIC DATA: Transesophageal echocardiogram - left ventricular ejection fraction 60-65%. There was no valvular stenosis or any evidence of endocarditis. CBC that was done this morning - WBC count 12.6, hemoglobin and hematocrit normal. Culture of the sputum - preliminarily normal trace from yesterday; final culture results are pending. Blood cultures - no bacterial growth from 10/21/2018. CT scan of the chest that was done yesterday was reviewed personally. CT scan of the chest that was done yesterday noted with scattered subcentimeter pulmonary nodule of 5 mm in the left lower lobe, a 5 mm nodule in the right lower lobe as well, and a 3 mm nodule scattered in the remaining lungs. There was no cavitation. There was no lymphadenopathy. IMPRESSION: The patient who has been currently admitted to the hospital is noted with: 1. Staphylococcus epidermidis bacteremia, which has been resolving with current medical management. 2. Improving acute exacerbation of chronic obstructive pulmonary disease and acute bronchitis as well. 3. Chronic obesity, suspicion of obstructive sleep apnea disorder as well. PLAN OF MANAGEMENT: The patient needs to be assessed for home oxygen supplementation because of secondary polycythemia, for chronic hypoxia. The antibiotic regimen per recommendations of the Infectious Disease specialist as cefazolin 2 gram IV b.i.d. for 14 days. Oral prednisone upon discharge. [place], [place] PROGRESS NOTE NAME: WEST YADAV UNIT #: [id number] ROOM: [facility] DOCTOR: LOKI SWANSON MD,CHRISTA BIRTHDATE: [birth year] Nicotine replacement patches. Abstinence from tobacco is recommended. Pulmonary nodules will be monitored as an outpatient. The patient was advised for outpatient assessment for his comprehensive pulmonary assessment for sleep apnea disorder, COPD, bronchial asthma, and pulmonary nodules. CHRISTA MANJARREZ MD CM:PNTRANS 1251 [id number] CHRISTA SWANSON MD 10/23/18 2310 interface
--- NOTE | ~2018-10-19 | PR ---
[place], [place] PROGRESS NOTE NAME: WEST YADAV UNIT #: [id number] ROOM: 420 DOCTOR: ROMULO GILBERT MD BIRTHDATE: [birth year] DOS: 10/27/2018 SUBJECTIVE: The patient is doing about the same, does not have any new complaints, is still waiting for placement to [facility]. OBJECTIVE: VITAL SIGNS: Blood pressure is 123/66, pulse of 72, respirations 16, temperature 97.7. LUNGS: Clear. HEART: Regular. ABDOMEN: Obese. EXTREMITIES: Without any edema. LABORATORY DATA: Blood culture that was done on the is now growing Staph warneri. ASSESSMENT AND PLAN: 1. Acute exacerbation of chronic obstructive pulmonary disease, on IV steroids. We will discontinue IV and place him on p.o. 2. Tracheobronchitis, on antibiotics. 3. Positive blood cultures on admission of Staphylococcus epidermidis. He also has another blood culture positive for Staphylococcus warneri on the . The ELVA is negative. Repeat blood culture on the is negative. The plan is to keep him on antibiotics until as advised by ID. The plan is to discharge him to [facility] hopefully tomorrow. ROMULO GILBERT MD CM:PNTRANS 0711 [id number] ROMULO GILBERT MD 10/27/18 1659 interface
--- NOTE | ~2018-10-19 | PR ---
[place], [place] PROGRESS NOTE NAME: WEST YADAV UNIT #: [id number] ROOM: 420 DOCTOR: ROMULO GILBERT MD BIRTHDATE: [birth year] DOS: 10/26/2018 SUBJECTIVE: The patient is doing well without any complaints. He is waiting for placement to [facility]. OBJECTIVE: VITAL SIGNS: Blood pressure is 139/89, pulse of 83, respirations 18, temperature 97.5. LUNGS: Clear. HEART: Regular. ABDOMEN: Obese, soft. EXTREMITIES: Without any edema. ASSESSMENT AND PLAN: 1. Chronic obstructive pulmonary disease with acute exacerbation, improved and stable. 2. Staph epidermidis in the blood cultures with negative transesophageal echo. The patient has had multiple blood cultures, which are negative since admission. The patient is planning to get to [facility] on IV Kefzol. 3. History of drug abuse with opioid addiction, on Suboxone. He did have cocaine in his drug screen and the patient states that he did snort some crack cocaine before admission. ROMULO GILBERT MD CM:PNTRANS 0720 [id number] ROMULO GILBERT MD 10/26/18 1045 interface
[~2018-10-19 13:06] MED LIST changes: +AUGMENTIN 875-875 MG PO; +PREDNISONE20 M1 PO
[2018-10-19 13:08] VITALS: BP 117/71
[2018-10-19 13:42] LABS: HEMATOCRIT 54.2 % (42.0-52.0); HEMOGLOBIN 17.3 g/dl (14.0-18.0); MEAN CELL VOLUME 89.9 fl (80.0-94.0); MEAN CORPUSCULAR HGB 28.7 pg (27.0-31.0); MEAN CORPUSCULAR HGB CONC 31.9 g/dl (33.0-37.0); MEAN PLATELET VOLUME 11.7 fl (9.6-12.3); PLATELET COUNT AUTOMATED 163 10*3/uL (130-400); RED BLOOD COUNT 6.03 10*6/uL (4.50-5.90); RED CELL DISTRI WIDTH 14.9 % (0-14.5); WHITE BLOOD COUNT 15.8 10*3/uL (4.8-10.8)
[2018-10-19 13:49] LABS: ACT PARTIAL THROMBO TIME 25.4 SECONDS (20.8-31.5); INTERNATIONAL NORM RATIO 1.1 (2.0-3.5)
[2018-10-19 13:52] LABS: ALBUMIN 3.2 gm/dl (3.1-4.5); ALKALINE PHOSPHATASE 91 U/L (45-117); BUN 8 mg/dl (7-24); CHLORIDE 100 mmol/L (98-107); CREATININE 0.84 mg/dL (0.70-1.30); POTASSIUM 3.9 mmol/L (3.5-5.1); SGOT/AST 25 IU/L (3-35); SGPT/ALT 25 U/L (12-78); SODIUM 135 mmol/L (136-145); TOTAL PROTEIN 7.5 gm/dL (6.4-8.2)
[2018-10-19 13:54] LABS: TROPONIN I < 0.015 ng/ml (<0.045)
[2018-10-19 13:58] LABS: PLATELET SUFFICIENCY NORMAL (NORMAL); TOTAL CELLS COUNTED 100 #CELLS
[2018-10-19 14:34] VITALS: BP 122/68
[2018-10-19 14:40] LABS: BILIRUBIN 1+ (NEGATIVE); BLOOD 2+ (NEGATIVE); CLARITY CLEAR (CLEAR); COLOR YELLOW (YELLOW); GLUCOSE NEGATIVE (NEGATIVE); KETONE TRACE (NEGATIVE); LEUKO ESTERASE NEGATIVE (NEGATIVE); NITRITE NEGATIVE (NEGATIVE)
--- NOTE | 2018-10-19 14:45 | NUR ---
A 67, admitted to , under the services of Dr. CR OSORIO,MORA Marques with a diagnosis of SHORTNESS OF BREATH. Chief complaint is SHORTNESS OF BREATH. Patient arrived via wheel chair from ER. Monitor applied. Initial assessment completed. Vital signs taken and recorded. DR. CR OSORIO,MORA Marques notified of admission to the unit. Orders received. See assessment for past medical history, medications and allergies. Patient and/or family oriented to unit. [facility] visitation policy reviewed. Clothing/patient valuable form completed. SARAHY SAUNDERS
[2018-10-19 14:48] LABS: URINE AMPHETAMINES < 1000 (1000ng/ml); URINE BARBITURATES < 200 (200ng/ml); URINE BENZODIAZEPINES < 200 (200ng/ml); URINE CANNABINOIDS (THC) < 50 (50ng/ml); URINE COCAINE > 300 (300ng/ml); URINE METHADONE < 300 (300ng/ml); URINE OPIATES < 300 (300ng/ml)
[2018-10-19 14:55] LABS: URINE PHENCYCLIDINE < 25 (25ng/ml)
[2018-10-19 15:05] LABS: MUCOUS 1+
--- NOTE | 2018-10-19 15:19 | NUR ---
CCADMA 67, admitted to , under the services of Dr. CR OSORIO,MORA Marques with a diagnosis of COPD. Chief complaint is SOB. Patient arrived via bed from ER. Monitor applied. Initial assessment completed. Vital signs taken and recorded. DR. CR OSORIO,MORA Marques notified of admission to the unit. Orders received. See assessment for past medical history, medications and allergies. Patient and/or family oriented to unit. [facility] visitation policy reviewed. Clothing/patient valuable form completed. BRYON VENTURA
[2018-10-19 16:00] VITALS: BP 120/56; BP 120/86
[2018-10-19 20:00] VITALS: BP 120/72
--- NOTE | 2018-10-20 05:33 | NUR ---
24 HR chart check completed.
--- NOTE | 2018-10-20 10:07 | NUR ---
DR. HANKINS NOTIFIED OF CRITICAL LAB VALUE.
--- NOTE | 2018-10-20 10:28 | NUR ---
NOTIFIED DR. CHRISTOPHER OF CONSULT. NEW ORDERS GIVEN.
[2018-10-20 12:00] VITALS: BP 126/79
[2018-10-20 16:00] VITALS: BP 103/62
--- NOTE | 2018-10-20 17:37 | NUR ---
DR. MANJARREZ NOTIFIED OF CONSULT.
[2018-10-20 20:00] VITALS: BP 116/100
[2018-10-21] VITALS: BP 113/63
--- NOTE | 2018-10-21 07:09 | NUR ---
DR. CERVANTES AND DR HANKINS NOTIFIED OF POSITIVE BLOOD CULTURES IN AEROBIC SPECIMEN.
[2018-10-21 08:24] LABS: BASO % 0.3 % (0.0-1.0); EOS # 0.1 10*3/uL (0.0-0.4); EOS % 0.7 % (1.0-4.0); HEMATOCRIT 49.1 % (42.0-52.0); HEMOGLOBIN 15.5 g/dl (14.0-18.0); LYMPH # 4.6 10*3/uL (1.3-4.4); LYMPH % 35.3 % (27.0-41.0); MEAN CELL VOLUME 92.1 fl (80.0-94.0); MEAN CORPUSCULAR HGB 29.1 pg (27.0-31.0); MEAN CORPUSCULAR HGB CONC 31.6 g/dl (33.0-37.0); MEAN PLATELET VOLUME 12.1 fl (9.6-12.3); MONO # 0.7 10*3/uL (0.1-1.0); MONO % 5.3 % (3.0-9.0); NEUT # 7.6 10*3/uL (2.3-7.9); NEUT % 58.2 % (47.0-73.0); PLATELET COUNT AUTOMATED 152 10*3/uL (130-400); RED BLOOD COUNT 5.33 10*6/uL (4.50-5.90); RED CELL DISTRI WIDTH 14.6 % (0-14.5); WHITE BLOOD COUNT 13.1 10*3/uL (4.8-10.8)
[2018-10-21 08:40] LABS: ALBUMIN 2.5 gm/dl (3.1-4.5); ALKALINE PHOSPHATASE 65 U/L (45-117); BUN 17 mg/dl (7-24); CHLORIDE 104 mmol/L (98-107); CREATININE 0.77 mg/dL (0.70-1.30); POTASSIUM 3.8 mmol/L (3.5-5.1); SGOT/AST 12 IU/L (3-35); SGPT/ALT 16 U/L (12-78); SODIUM 140 mmol/L (136-145); TOTAL PROTEIN 6.1 gm/dL (6.4-8.2)
--- NOTE | 2018-10-21 09:00 | NUR ---
Safety Analyst in to talk to patient. Patient states lives at home with alone. There are few steps in the home. Physician: shahnaz Pharmacy: [facility] Home health services: none Patient's level of ADLs: INDEPENDENT Patient has working utilities: all working DME: home oxygen, portable tanks Follow-up physician's appointment after d/c: patient states he would prefer to make follow up appointment Does patient want to access PORTAL?: no Discharge plan discussed with patient, patient lives at home, states he gets around fine, patient states he will be going home when able and denies any home needs. BARBARA GARCÍA
[2018-10-21 09:26] VITALS: BP 112/60
[2018-10-21 12:00] VITALS: BP 100/62
--- NOTE | 2018-10-21 14:11 | NUR ---
PHYSICAL THERAPY PAtient refuses PT at this time. Thank you for this referral. Fiona Xavier,PT
[2018-10-21 16:00] VITALS: BP 105/67
[2018-10-21 20:00] VITALS: BP 110/70
[2018-10-22] VITALS (8 sets, daily range): BP systolic 92–140; BP diastolic 60–81
[2018-10-22 06:10] LABS: BASO % 0.1 % (0.0-1.0); HEMATOCRIT 51.7 % (42.0-52.0); HEMOGLOBIN 16.2 g/dl (14.0-18.0); LYMPH # 1.4 10*3/uL (1.3-4.4); LYMPH % 13.8 % (27.0-41.0); MEAN CELL VOLUME 92.8 fl (80.0-94.0); MEAN CORPUSCULAR HGB 29.1 pg (27.0-31.0); MEAN CORPUSCULAR HGB CONC 31.3 g/dl (33.0-37.0); MEAN PLATELET VOLUME 12.2 fl (9.6-12.3); MONO # 0.2 10*3/uL (0.1-1.0); MONO % 1.9 % (3.0-9.0); NEUT # 8.4 10*3/uL (2.3-7.9); NEUT % 83.2 % (47.0-73.0); PLATELET COUNT AUTOMATED 160 10*3/uL (130-400); RED BLOOD COUNT 5.57 10*6/uL (4.50-5.90); RED CELL DISTRI WIDTH 14.4 % (0-14.5); WHITE BLOOD COUNT 10.1 10*3/uL (4.8-10.8)
--- NOTE | 2018-10-22 09:00 | NUR ---
case management visits with patient, patient denies any home needs
--- NOTE | 2018-10-22 09:21 | NUR ---
PT SENT VIA BED FOR ELVA
--- NOTE | 2018-10-22 09:58 | NUR ---
DR. CERVANTES NOTIFIED OF BLOOD CULTURE 10/19 RESULT OF STAPH EPIDERMIDIS, NO NEW ORDERS AT THIS TIME
--- NOTE | 2018-10-22 11:30 | NUR ---
return from [facility]
--- NOTE | 2018-10-22 13:20 | NUR ---
SENT TO CT SCAN
--- NOTE | 2018-10-22 14:00 | NUR ---
PHYSICAL THERAPY PAtient at testing at this time. PAtient at testing ealier this date as well. Thank you for this referral. Fiona Xavier,PT
[2018-10-23] VITALS: BP 103/56
[2018-10-23 07:04] LABS: BASO % 0.1 % (0.0-1.0); HEMATOCRIT 51.5 % (42.0-52.0); LYMPH # 2.3 10*3/uL (1.3-4.4); LYMPH % 18.5 % (27.0-41.0); MEAN CELL VOLUME 93.3 fl (80.0-94.0); MEAN CORPUSCULAR HGB CONC 31.1 g/dl (33.0-37.0); MEAN PLATELET VOLUME 11.4 fl (9.6-12.3); MONO # 0.5 10*3/uL (0.1-1.0); NEUT # 9.7 10*3/uL (2.3-7.9); NEUT % 76.8 % (47.0-73.0); PLATELET COUNT AUTOMATED 175 10*3/uL (130-400); RED BLOOD COUNT 5.52 10*6/uL (4.50-5.90); RED CELL DISTRI WIDTH 14.5 % (0-14.5); WHITE BLOOD COUNT 12.6 10*3/uL (4.8-10.8)
[2018-10-23 07:08] LABS: HEPATITIS B SURFACE AG Negative (Negative)
[2018-10-23 08:00] VITALS: BP 140/78
--- NOTE | 2018-10-23 08:00 | NUR ---
PHYSICAL THERAPY Patient evaluated on 4, full evaluation to follow. D/C PT after evaluation, patient (I) with functional mobility. PAtient is moderate complexity via chart review, tests and evaluation: 44170. Thank you for this referral. Fiona Xavier,PT
--- NOTE | 2018-10-23 08:40 | NUR ---
Occupational Therapy evaluation completed on 4 with full eval to follow. Precautions include SOB, O2 dep but patient wears PRN, IV UE, low complexity level 44925 via testing, eval and chart review. Recommend no further OT at this time and return home alone at prior level w/ O2 use. Thank you for this referral. Sada Egan OTR/L
--- NOTE | 2018-10-23 09:17 | NUR ---
DR. MANJARREZ AND HELEN HERE TO SEE PATIENT
--- NOTE | 2018-10-23 09:27 | NUR ---
In to see patient, he stated to me that he would like to go to [facility] for skilled rehab. Will notify facility and fax referral. Requires PT/OT evals and precert.
[2018-10-23 10:17] LABS: HEPATITIS C VIRUS ANTIBODY >11.0 s/co (0.0-0.9)
--- NOTE | 2018-10-23 10:30 | NUR ---
case management visits with patient, patient is independent in adls and ambulation per PT and OT and will not qualify for skilled care under these treatments. he will have iv antibiotics q8hr for 2 weeks that will qualify him for skilled care. [facility] is not able to take patient, he will be referred to [facility]. patient stated he would just go home. discussed with him if there was anyone at home that could be taught to administer the iv antibiotics, patient stated there was probably someone but he wasn't sure. referral will stay at [facility] and see if insurance would precert patient. case management also faxed iv anbitibiotic script to [facility] to check on cost of medications for home, case management will follow
[2018-10-23 12:00] VITALS: BP 118/70
--- NOTE | 2018-10-23 13:24 | NUR ---
Referral faxed to [facility], waiting on review/acceptance.
[2018-10-23 16:00] VITALS: BP 106/62
[2018-10-23 20:00] VITALS: BP 130/68
[2018-10-24] VITALS: BP 118/77
[2018-10-24 01:27] VITALS: BP 152/84
[2018-10-24 06:45] LABS: BASO % 0.1 % (0.0-1.0); HEMATOCRIT 50.7 % (42.0-52.0); HEMOGLOBIN 15.7 g/dl (14.0-18.0); LYMPH # 2.5 10*3/uL (1.3-4.4); LYMPH % 24.1 % (27.0-41.0); MEAN CELL VOLUME 92.3 fl (80.0-94.0); MEAN CORPUSCULAR HGB 28.6 pg (27.0-31.0); MEAN PLATELET VOLUME 11.6 fl (9.6-12.3); MONO # 0.4 10*3/uL (0.1-1.0); NEUT # 7.2 10*3/uL (2.3-7.9); NEUT % 70.8 % (47.0-73.0); PLATELET COUNT AUTOMATED 162 10*3/uL (130-400); RED BLOOD COUNT 5.49 10*6/uL (4.50-5.90); RED CELL DISTRI WIDTH 14.5 % (0-14.5); WHITE BLOOD COUNT 10.2 10*3/uL (4.8-10.8)
--- NOTE | 2018-10-24 08:11 | NUR ---
DR HANKINS NOTIFIED OF PATIENT'S BLOOD CULTURES. CALLED ID AND AWAITING CALL BACK.
--- NOTE | 2018-10-24 09:00 | NUR ---
case management visits with patient, waiting on precert for [facility], case mangement will follow
--- NOTE | 2018-10-24 11:47 | NUR ---
Patient has been accepted to [facility], waiting on auth.
[2018-10-24 12:00] VITALS: BP 124/62
[2018-10-24 16:00] VITALS: BP 128/75
[2018-10-24 20:00] VITALS: BP 114/59
--- NOTE | 2018-10-24 23:30 | NUR ---
REPORT RECIEVED FROM JOSE M NEFF. PT IS ASLEEP IN BED AT THIS TIME WITH NO OBVIOUS SIGNS OF PAIN OR DISCOMFORT. RESPIRATIONS EASY AND NONLABORED. NSR ON CLINICAL NURSE SPECIALIST. BED LOCKED AND IN LOWEST POSITION. CALL LIGHT IS WITHIN REACH. WILL CONTINUE TO MONITOR.
[2018-10-25] VITALS: BP 126/79
[2018-10-25 07:23] LABS: BUN 15 mg/dl (7-24); CHLORIDE 103 mmol/L (98-107); CREATININE 0.68 mg/dL (0.70-1.30); SODIUM 141 mmol/L (136-145)
[2018-10-25 08:00] VITALS: BP 132/78
--- NOTE | 2018-10-25 10:19 | NUR ---
PATIENT TESTED FOR THE USE OF HOME OXYGEN. ON ROOM AIR PATIENT SITTING AT THE SIDE OF THE BED: SPO2:94% HEART RATE:94 BLOOD PRESSURE:126/78 RESPIRATORY RATE:21 DURING AMBULATION PATIENT DID NOT SHOW ANY SIGNS OF SHORTNESS OF BREATH, OR FATIGUE. PATIENT DID NOT DESATURATE PAST 90%, AND BOUNCE BACK AND FORTH FROM 90% TO 92%.
[2018-10-25 12:00] VITALS: BP 132/78; BP 137/84
--- NOTE | 2018-10-25 12:00 | NUR ---
[facility] waiting for pre-author[facility].
--- NOTE | 2018-10-25 13:04 | NUR ---
PT RESTING COMFORTABLY, CALL LIGHT WITHIN REACH. NO COMPLAINTS AT THIS TIME.
[2018-10-25 16:00] VITALS: BP 131/53
--- NOTE | 2018-10-25 17:41 | NUR ---
IN BED, TALKING ON CELL PHONE. NO SXS OF DISTRESS NOTED. CALL LIGHT IN REACH. MIDLINE FLUSHED WITH EASE FOLLOWING IV ABX.
[2018-10-25 20:00] VITALS: BP 112/68
[2018-10-26] VITALS: BP 139/89
--- NOTE | 2018-10-26 02:52 | NUR ---
24 HR chart check completed.
--- NOTE | 2018-10-26 10:28 | NUR ---
WALKING HALLS WITH EASE. FRIEND AT SIDE. NO COMPLAINTS VOICED. NO DISTRESS NOTED.
--- NOTE | 2018-10-26 11:02 | NUR ---
PT FOUND SMOKING IN [place] AFTER TELLING THE PT HE WAS NOT ALLOWED TO GO OUTSIDE. NICOTINE PATCH TO LEFT SHOULDER. EDUCATED PATIENT ON HOSPITAL SAFETY. AND WHY SMOKING IS DISCOURGED WHILE USING A NICOTINE REPLACEMENT. INFORMED NETWORK MANAGER.
[2018-10-26 12:00] VITALS: BP 140/69
[2018-10-26 16:00] VITALS: BP 125/81
--- NOTE | 2018-10-26 17:33 | NUR ---
LAYING IN BED, WATCHING TV ON CELL PHONE. CALL LIGHT IN REACH. ABX GOING.
--- NOTE | 2018-10-26 19:00 | NUR ---
REPORT OBTAINED FROM MARION-RN. PATIENT SITTING UP IN BED, PATIENT IS AWARE NOT TO LEAVE FLOOR. VOICED UNDERSTANDING AND VOICED NO COMPLAINTS. NO DISTRESS NOTED, RESP ARE ERND ON ROOM AIR. CALL LIGHT LEFT WITHIN REACHJ.
[2018-10-26 20:00] VITALS: BP 129/72
[2018-10-27] VITALS: BP 123/66
--- NOTE | 2018-10-27 03:44 | NUR ---
24 HR chart check completed.
[2018-10-27 08:00] VITALS: BP 122/74
[2018-10-27 12:00] VITALS: BP 118/75
[2018-10-27 16:00] VITALS: BP 116/71
[2018-10-27 20:00] VITALS: BP 118/61
--- NOTE | 2018-10-27 22:14 | NUR ---
Contacted Dr. Rendon in regards to Suboxone order being discontinued. See new orders.
[2018-10-28] VITALS: BP 101/83
[2018-10-28 07:08] LABS: BUN 19 mg/dl (7-24); CREATININE 0.66 mg/dL (0.70-1.30)
[2018-10-28 08:00] VITALS: BP 102/64
--- NOTE | 2018-10-28 08:00 | NUR ---
Patient clinical updates faxed to [facility] to continue precert. Waiting for auth.
[2018-10-28 12:00] VITALS: BP 115/85
--- NOTE | 2018-10-28 12:08 | NUR ---
Coffee Roaster in to see patient. Discussed short term SNF and he is agreeable. Informed we are waiting on authorization from his insurance. When medically stable and auth is received he will be discharged to [facility]. case planner following.
[2018-10-28 16:00] VITALS: BP 121/77
[2018-10-28 20:00] VITALS: BP 109/71
[2018-10-29] VITALS: BP 101/63
[2018-10-29 08:00] VITALS: BP 110/72
--- NOTE | 2018-10-29 11:05 | NUR ---
Spoke to My from [facility] regarding patient being referred to [facility] instead of home with IV antibiotics.
--- NOTE | 2018-10-29 11:30 | NUR ---
Notified Dr. Trice nichole has been received for patient to go to [facility] today.
--- NOTE | 2018-10-29 11:41 | NUR ---
patient received auth for [facility]. He is ok to go if medically stable for discharge. [facility] is requesting patient is discharged as soon as possible.
[2018-10-29 12:00] VITALS: BP 119/63
[2018-10-29 16:00] VITALS: BP 109/62
[2018-10-29 20:00] VITALS: BP 119/60
--- NOTE | 2018-10-29 20:25 | NUR ---
AWAKE/ALERT FOR SHIFT ASSESSMENT. RESPIRATIONS EASY/REG ON RA AT THIS TIME. NO VOICED COMPLAINTS. BED IN LOW POSITION. WHEELS LOCKED, CALL LIGHT IN REACH. WILL MONITOR.
[2018-10-30] VITALS: BP 113/54
--- NOTE | 2018-10-30 03:13 | NUR ---
PATIENT SLEEPING. NO S/S OF DISTRESS NOTED AT THIS TIME. CALL LIGHT IS IN REACH
--- NOTE | 2018-10-30 04:40 | NUR ---
24 HR chart check completed.
[2018-10-30 08:00] VITALS: BP 116/64
--- NOTE | 2018-10-30 09:34 | NUR ---
CALLED AT THIS TIME REGARDING IV ATB RENEWAL. OKAY TO RENEW ATB AT THIS TIME.
[2018-10-30] MEDS ORDERED: CEFAZOLIN2 GM/20 ML IV (10:38)
--- NOTE | 2018-10-30 11:27 | NUR ---
Discharge instructions reviewed with patient/family. Patient receptive and verbalizes understanding. Follow-up care arranged. Written instructions given to patient/family. PAIGE BLAIR.
[2018-10-30 12:00] VITALS: BP 134/80
--- NOTE | 2018-10-30 12:21 | NUR ---
PATIENT DISCHARGED AT THIS TIME.
--- NOTE | 2018-10-30 12:22 | NUR ---
Faxed DC information to [facility], notified patient is on his way via private car
--- NOTE | 2018-10-30 12:53 | NUR ---
REPORT GIVEN TO NURSE AT [facility].
[2018-11-14] MEDS ORDERED: COREG3.125 MG PO (08:10)
[2018-11-14] MEDS ORDERED: XARE15TA PO (08:10)
== END 2018-10-30 12:20 | disposition other institution (70) | DRG 189 ==
LOC: ED 13:06 → EDHOLD 14:13 → 4E 14:13
PROVIDERS: Emergency Medicine; Internal Medicine; Internal Medicine Critical Care Medicine; ADMIT Internal Medicine
PROC: 05HY33Z Insertion of Infusion Device into Upper Vein, Percutaneous Approach (ICD-10-PCS; principal; 2018-10-23)
DX: J96.21 Acute and chronic respiratory failure with hypoxia (principal); J44.1 Chronic obstructive pulmonary disease with (acute) exacerbation; E44.1 Mild protein-calorie malnutrition; J44.0 Chronic obstructive pulmonary disease with (acute) lower respiratory infection; J20.9 Acute bronchitis, unspecified; R62.7 Adult failure to thrive; D75.1 Secondary polycythemia; B95.7 Other staphylococcus as the cause of diseases classified elsewhere; I71.2 Thoracic aortic aneurysm, without rupture; E66.01 Morbid (severe) obesity due to excess calories; F17.210 Nicotine dependence, cigarettes, uncomplicated; I11.0 Hypertensive heart disease with heart failure; B19.20 Unspecified viral hepatitis C without hepatic coma; G47.30 Sleep apnea, unspecified; R91.8 Other nonspecific abnormal finding of lung field; F14.10 Cocaine abuse, uncomplicated; I35.8 Other nonrheumatic aortic valve disorders; F41.9 Anxiety disorder, unspecified; I50.9 Heart failure, unspecified; Z96.652 Presence of left artificial knee joint; G89.29 Other chronic pain; M25.562 Pain in left knee; M25.561 Pain in right knee; Z99.81 Dependence on supplemental oxygen; Z87.01 Personal history of pneumonia (recurrent); Z87.440 Personal history of urinary (tract) infections; Z90.49 Acquired absence of other specified parts of digestive tract; Z83.3 Family history of diabetes mellitus; Z71.6 Tobacco abuse counseling; Z79.899 Other long term (current) drug therapy; Z68.39 Body mass index [BMI] 39.0-39.9, adult

== ENCOUNTER 2018-11-05 14:14 | Emergency (ER) | payer OTHER ==
[~2018-11-05] VITALS: Ht 187.9 cm; Wt 124.7 kg
[~2018-11-05 14:14] MED LIST changes: +CEFAZOLIN2 GM/20 ML IV
[2018-11-05 16:00] VITALS: BP 112/72
[2018-11-14] MEDS ORDERED: XARE15TA PO (08:10)
[2018-11-14] MEDS ORDERED: COREG3.125 MG PO (08:10)
== END 2018-11-05 17:15 | disposition other institution (70) ==
LOC: ED 14:14
DX: M25.511 Pain in right shoulder (principal); Z79.899 Other long term (current) drug therapy; Z95.828 Presence of other vascular implants and grafts

== ENCOUNTER 2019-03-13 14:09 | Inpatient (IN) | payer OTHER ==
[~2019-03-13] VITALS: Ht 187.9 cm; Wt 132.0 kg
[2019-03-13 14:09] VITALS: BP 146/80
[~2019-03-13 14:09] MED LIST changes: +COREG3.125 MG PO; +XARE15TA PO
[2019-03-13 15:57] LABS: BASO % 0.2 % (0.0-1.0); EOS # 0.1 10*3/uL (0.0-0.4); EOS % 1.2 % (1.0-4.0); HEMATOCRIT 56.8 % (42.0-52.0); HEMOGLOBIN 18.5 g/dl (14.0-18.0); LYMPH # 3.6 10*3/uL (1.3-4.4); LYMPH % 36.4 % (27.0-41.0); MEAN CELL VOLUME 89.7 fl (80.0-94.0); MEAN CORPUSCULAR HGB 29.2 pg (27.0-31.0); MEAN CORPUSCULAR HGB CONC 32.6 g/dl (33.0-37.0); MEAN PLATELET VOLUME 11.8 fl (9.6-12.3); MONO # 0.7 10*3/uL (0.1-1.0); MONO % 6.8 % (3.0-9.0); NEUT # 5.5 10*3/uL (2.3-7.9); NEUT % 55.2 % (47.0-73.0); PLATELET COUNT AUTOMATED 154 10*3/uL (130-400); RED BLOOD COUNT 6.33 10*6/uL (4.50-5.90)
[2019-03-13 16:05] LABS: ACT PARTIAL THROMBO TIME 26.9 SECONDS (20.0-32.1)
[2019-03-13 17:16] LABS: ALBUMIN 3.1 gm/dl (3.1-4.5); ALKALINE PHOSPHATASE 94 U/L (45-117); BUN 7 mg/dl (7-24); CHLORIDE 103 mmol/L (98-107); CREATININE 0.95 mg/dL (0.70-1.30); LIPASE 56 U/L (73-393); POTASSIUM 4.4 mmol/L (3.5-5.1); SGOT/AST 30 IU/L (3-35); SGPT/ALT 38 U/L (12-78); SODIUM 141 mmol/L (136-145); TOTAL PROTEIN 7.5 gm/dL (6.4-8.2)
[2019-03-13 18:12] LABS: TROPONIN I < 0.015 ng/ml (<0.045)
--- NOTE | 2019-03-13 19:45 | NUR ---
A 68, admitted to , under the services of ROMULO Sanchez MD with a diagnosis of DYSPNEA. Chief complaint is SOB. Patient arrived via wheel chair from ER. Monitor applied. Initial assessment completed. Vital signs taken and recorded. ROMULO SANCHEZ MD notified of admission to the unit. Orders received. See assessment for past medical history, medications and allergies. Patient and/or family oriented to unit. [address] visitation policy reviewed. Clothing/patient valuable form completed. CANDICE SUMNER
[2019-03-14] VITALS: BP 134/79
--- NOTE | 2019-03-14 07:43 | NUR ---
PHYSICAL THERAPY Nursing screen received and chart reviewed. Please order PT evaluation if decline in functional mobility presents. Thank you, Rosa Collazo, SPT Laura Rivera,PT,DPT
[2019-03-14 08:00] VITALS: BP 118/60
--- NOTE | 2019-03-14 09:00 | NUR ---
Produce Runner in to talk to patient. Patient states lives at home alone with friends checking in on him. There are 0 steps in the home. Physician: Dr. Miryam Rendon [facility] Home health services: none Patient's level of ADLs: INDEPENDENT Patient has working utilities: yes DME: O2 @ 2L nc prn, portable O2 tanks, nebulizer, O2 supplier [employer] Follow-up physician's appointment after d/c: he prefers to make his own follow up appt after discharge Does patient want to access PORTAL?: no Discharge plan discussed with patient. He lives at home alone with his friends checking in on him. He is independent in his ADLs and ambulation. Discussed home health care services and he denies any home needs at this time. When medically stable he will be discharged to home. MIKEY FARAH
[2019-03-14 12:00] VITALS: BP 121/81
--- NOTE | 2019-03-14 13:20 | NUR ---
PT C/O NAUSEA. DR GILBERT NOTIFIED, NEW ORDERS RECEIVED.
[2019-03-14 16:00] VITALS: BP 95/64
[2019-03-14 20:00] VITALS: BP 100/62
--- NOTE | 2019-03-14 21:52 | NUR ---
PRN ZOFRAN ADMINISTERED PRESCRIBED FOR PT C/O NAUSEA. WILL CONTINUE TO MONITOR.
[2019-03-15] VITALS: BP 98/60
[2019-03-15] MEDS ORDERED: PREDNISONE5 MG PO (06:11)
[2019-03-15] MEDS ORDERED: CEFUROXIME AXE250 MG PO (06:11)
[2019-03-15] MEDS ORDERED: PROTONIX40 MG PO (06:11)
[2019-03-15 08:00] VITALS: BP 112/71
--- NOTE | 2019-03-15 08:00 | NUR ---
Patient resting quietly with no c/o discomfort. Respirations easy and regular. Vital signs stable. No overt distress. YOANA QUINN R
--- NOTE | 2019-03-15 09:30 | NUR ---
Discharge instructions reviewed with patient/family. Patient receptive and verbalizes understanding. Follow-up care arranged. Written instructions given to patient/family. YOANA QUINN
== END 2019-03-15 09:30 | disposition home or self-care (01) | DRG 191 ==
LOC: ED 14:09 → EDHOLD 18:03 → 4E 18:03
PROVIDERS: Emergency Medicine; ADMIT Internal Medicine
DX: J44.1 Chronic obstructive pulmonary disease with (acute) exacerbation (principal); J96.10 Chronic respiratory failure, unspecified whether with hypoxia or hypercapnia; F11.20 Opioid dependence, uncomplicated; M54.9 Dorsalgia, unspecified; F14.10 Cocaine abuse, uncomplicated; M47.896 Other spondylosis, lumbar region; I10 Essential (primary) hypertension; I71.2 Thoracic aortic aneurysm, without rupture; F17.210 Nicotine dependence, cigarettes, uncomplicated; G89.29 Other chronic pain; F12.10 Cannabis abuse, uncomplicated; F41.9 Anxiety disorder, unspecified; I48.91 Unspecified atrial fibrillation; Z87.01 Personal history of pneumonia (recurrent); Z87.440 Personal history of urinary (tract) infections; Z71.51 Drug abuse counseling and surveillance of drug abuser

== ENCOUNTER 2019-03-22 14:02 | Inpatient (IN) | payer OTHER ==
[~2019-03-22] VITALS: Ht 188 cm; Wt 133.8 kg
[2019-03-22] VITALS (7 sets, daily range): BP systolic 98–129; BP diastolic 50–88
[~2019-03-22 14:02] MED LIST changes: +CEFUROXIME AXE250 MG PO
[2019-03-22 14:22] LABS: BASO # 0.1 10*3/uL (0.0-0.1); BASO % 0.4 % (0.0-1.0); EOS # 0.7 10*3/uL (0.0-0.4); EOS % 4.4 % (1.0-4.0); HEMOGLOBIN 18.3 g/dl (14.0-18.0); LYMPH # 4.5 10*3/uL (1.3-4.4); LYMPH % 29.2 % (27.0-41.0); MEAN CELL VOLUME 90.9 fl (80.0-94.0); MEAN CORPUSCULAR HGB 29.7 pg (27.0-31.0); MEAN CORPUSCULAR HGB CONC 32.7 g/dl (33.0-37.0); MEAN PLATELET VOLUME 11.9 fl (9.6-12.3); MONO # 1.2 10*3/uL (0.1-1.0); MONO % 7.4 % (3.0-9.0); NEUT % 58.3 % (47.0-73.0); PLATELET COUNT AUTOMATED 170 10*3/uL (130-400); RED BLOOD COUNT 6.16 10*6/uL (4.50-5.90); RED CELL DISTRI WIDTH 14.8 % (0-14.5); WHITE BLOOD COUNT 15.5 10*3/uL (4.8-10.8)
[2019-03-22 14:25] LABS: ABG O2 SATURATION 97.8 % (95-97); ARTERIAL BLOOD GAS PCO2 55.4 mmHg (35-45); ARTERIAL BLOOD GAS PH 7.353 (7.35-7.45); ARTERIAL BLOOD GAS PO2 85.5 mmHg (80-90)
[2019-03-22 14:33] LABS: ACT PARTIAL THROMBO TIME 27.2 SECONDS (20.0-32.1)
[2019-03-22 14:39] LABS: ALBUMIN 3.1 gm/dl (3.1-4.5); ALKALINE PHOSPHATASE 95 U/L (45-117); BUN 7 mg/dl (7-24); CHLORIDE 105 mmol/L (98-107); CREATININE 0.76 mg/dL (0.70-1.30); POTASSIUM 4.2 mmol/L (3.5-5.1); SGOT/AST 27 IU/L (3-35); SGPT/ALT 37 U/L (12-78); SODIUM 138 mmol/L (136-145); TOTAL PROTEIN 7.3 gm/dL (6.4-8.2)
[2019-03-22 14:41] LABS: TROPONIN I < 0.015 ng/ml (<0.045)
--- NOTE | 2019-03-22 15:00 | NUR ---
PT PLACED ON BIPAP AT THIS TIME PER DR DEL VALLE
--- NOTE | 2019-03-22 15:25 | NUR ---
RESTING IN BED, APPEARS MORE RELAXED. RESP EASIER 14/MIN.
--- NOTE | 2019-03-22 16:09 | NUR ---
A 68yr old male, admitted to [facility], under the services of Dr. CR OSORIO,[facility] with a diagnosis of Sepsis and Respiratory Failure. Chief complaint is increased shortness of breath. Patient arrived via stretcher from ER. Monitor applied. Initial assessment completed. Vital signs taken and recorded. See assessment for past medical history, medications and allergies. Patient and/or family oriented to unit. [facility] visitation policy reviewed. Clothing/patient valuable form completed. JOSE ANTONIO THORNTON L
--- NOTE | 2019-03-22 17:08 | NUR ---
DR MANJARREZ MADE AWARE OF NEW CONSULT ORDER.
--- NOTE | 2019-03-22 19:55 | NUR ---
1938 PLACED PATIENT ON BIPAP 40%
--- NOTE | 2019-03-22 20:00 | NUR ---
ASSUMED CARE OF PATIENT. PATIENT SITTING UP IN BED AT THIS TIME. NO S/S OF DISTRESS. ASSESSMENT COMPLETED WITH RHONCHI PRESENTING IN LUNGS. DENIES ANY DISCOMFORTS AT THIS TIME. CALL LIGHT IN REACH.
[2019-03-23] VITALS: BP 111/68
--- NOTE | 2019-03-23 00:50 | NUR ---
FOUND PATIENT OFF BIPAP. 4L NC IN USE WITH SPO2 97%. WILL CONTINUE TO MONITOR
--- NOTE | 2019-03-23 02:45 | NUR ---
PATIENT RESTING COMFORTABLY IN HIS BED AT THIS TIME. CALL LIGHT IN REACH. NO S/S OF DISTRESS. ON NASAL CANNULA, O2 SAT STABLE.
[2019-03-23 04:00] VITALS: BP 125/80; BP 134/79
--- NOTE | 2019-03-23 07:14 | NUR ---
PT NOT ON BIPAP AT THIS TIME, SPO2 95% 3LNC, RR 12, HR 82
[2019-03-23 08:00] VITALS: BP 104/68
--- NOTE | 2019-03-23 11:29 | NUR ---
PT NOT ON BIPAP AT THIS TIME . SPO2 97% 3LNC, HR 72, RR 13
[2019-03-23 12:00] VITALS: BP 110/60
--- NOTE | 2019-03-23 15:30 | NUR ---
PT NOT ON BIPAP AT THIS TIME
[2019-03-23 16:00] VITALS: BP 100/58
[2019-03-23 20:00] VITALS: BP 110/65
[2019-03-24] VITALS: BP 96/63
[2019-03-24 02:15] VITALS: BP 104/75
--- NOTE | 2019-03-24 02:18 | NUR ---
PT NOT WANTING TO WEAR BIPAP AT THIS TIME. STATES HE DOESN'T FEEL LIKE HE NEEDS IT.
--- NOTE | 2019-03-24 06:23 | NUR ---
PT NOW AGREEING TO WEAR BIPAP. STATES HE IS FEELING SOME MILD SHORTNESS OF BREATH. O2 APPLIED AT 2L NC. RESPIRATORY CALLED TO PUT PT ON BIPAP. WILL BE UP TO DO SO.
[2019-03-24 08:00] VITALS: BP 117/75
--- NOTE | 2019-03-24 11:00 | NUR ---
Director [employer] in to talk to patient. Patient states lives at home alone with friends checking in on him. There are 0 steps in the home. Physician: Dr. Miryam Rendon [facility] Home health services: none Patient's level of ADLs: INDEPENDENT Patient has working utilities: yes DME: O2 @ 2L nc prn, portable O2 tanks, nebulizer, O2 supplier [employer] Follow-up physician's appointment after d/c: he prefers to make his own follow up appt after discharge Does patient want to access PORTAL?: no Discharge plan discussed with patient. He lives at home alone with his friends checking in on him. He is independent in his ADLs and ambulation. Discussed home health care services and he denies any home needs at this time. He would like a new nebulizer. Dr. Carnes notified. Dr. Carnes states patient is going for a bronchoscopy in the morning. When medically stable he will be discharged to home. MIKEY FARAH
[2019-03-24 12:00] VITALS: BP 117/78
--- NOTE | 2019-03-24 15:46 | NUR ---
PLACED PATIENT ON BIPAP 16/10, 40% O2. IS RESTING COMFORTABLY.WILL CONTINUE TO MONITOR.
[2019-03-24 16:00] VITALS: BP 116/70
[2019-03-24 20:00] VITALS: BP 117/86
--- NOTE | 2019-03-24 22:21 | NUR ---
NOTIFIED OF PATIENT'S REQUEST FOR STOOL SOFTENER/LAXATIVE. NEW ORDER RECEIVED FOR MIRALAX 17 G BID.
[2019-03-25] VITALS (8 sets, daily range): BP systolic 96–131; BP diastolic 46–94
--- NOTE | 2019-03-25 00:06 | NUR ---
PT AGREED TO WEAR BIPAP AT THIS TIME. PUT ON BIPAP BY RESPIRATORY. WILL MONITOR. CALL LIGHT IN REACH.
--- NOTE | 2019-03-25 05:10 | NUR ---
PT TAKEN OFF BIPAP AT THIS TIME PER REQUEST. RESPIRATORY NOTIFIED. PT HAS NASAL CANNULA AT 3L AT BEDSIDE IF NEEDED. PT STATES HE DOES NOT NEED AT THIS TIME. PULSE OX DISCONNECTED FROM TELE MONITOR AND PLACED IN PATIENT'S [place]. WILL MONITOR. CALL LIGHT IN REACH.
[2019-03-25 06:23] LABS: BASO % 0.1 % (0.0-1.0); HEMATOCRIT 53.1 % (42.0-52.0); HEMOGLOBIN 16.5 g/dl (14.0-18.0); LYMPH # 2.8 10*3/uL (1.3-4.4); LYMPH % 16.2 % (27.0-41.0); MEAN CELL VOLUME 93.3 fl (80.0-94.0); MEAN CORPUSCULAR HGB CONC 31.1 g/dl (33.0-37.0); MEAN PLATELET VOLUME 11.9 fl (9.6-12.3); MONO # 0.5 10*3/uL (0.1-1.0); MONO % 2.9 % (3.0-9.0); NEUT % 80.2 % (47.0-73.0); PLATELET COUNT AUTOMATED 200 10*3/uL (130-400); RED BLOOD COUNT 5.69 10*6/uL (4.50-5.90); RED CELL DISTRI WIDTH 15.1 % (0-14.5); WHITE BLOOD COUNT 17.4 10*3/uL (4.8-10.8)
[2019-03-25 06:34] LABS: CREATININE 0.77 mg/dL (0.70-1.30)
--- NOTE | 2019-03-25 07:45 | NUR ---
NPO, awake and alert. Aware of procedure. To surgery via bed transfer with OR staff. Heather MORIN
--- NOTE | 2019-03-25 13:48 | NUR ---
RN PLACED PT ON BIPAP
--- NOTE | 2019-03-25 15:39 | NUR ---
PT NOT ON BIAP AT THIS TIME
[2019-03-26] VITALS: BP 122/83
--- NOTE | 2019-03-26 01:53 | NUR ---
PT TOOK BIPAP OFF HIMSELF. STATES HE HAS TO "EAT A CRACKER." RESPIRATORY NOTIFIED. STATES HE WILL CALL WHEN HE WANTS TO PUT BIPAP BACK ON.
--- NOTE | 2019-03-26 02:37 | NUR ---
SCHEDULED IV ZOSYN INFUSION INITIATED AT THIS TIME. PT ON BIPAP. 40% FiO2. POX 99%. WILL MONITOR. CALL LIGHT IN REACH.
[2019-03-26 08:00] VITALS: BP 96/54
--- NOTE | 2019-03-26 09:00 | NUR ---
Golf Cart Repairer in to see patient. No new needs or request at this time. He denies any home needs. When medically stable he will be discharged to home.
[2019-03-26 12:00] VITALS: BP 123/70
--- NOTE | 2019-03-26 12:57 | NUR ---
PATIENT TAKEN TO RADIOLOGY FOR CHEST XRAY.
--- NOTE | 2019-03-26 15:39 | NUR ---
PT ON BIPAP AT THIS TIME
[2019-03-26 16:00] VITALS: BP 112/67
[2019-03-26 16:04] LABS: ACID FAST SPEC PROCESSING Concentration (.)
--- NOTE | 2019-03-26 19:55 | NUR ---
Shift chart check completed.24 HR chart check completed.
[2019-03-26 20:00] VITALS: BP 102/68
--- NOTE | 2019-03-26 23:30 | NUR ---
PT ASLEEP IN BED AT THIS TIME. RESPIRATIONS EASY. NO S/S OF DISTRESS NOTED. WILL MONITOR. CALL LIGHT IN REACH.
[2019-03-27] VITALS: BP 94/50
--- NOTE | 2019-03-27 01:37 | NUR ---
PT ASLEEP IN BED. BIPAP IN USE. CONTINUOUS POX APPLIED. WILL MONITOR. CALL LIGHT IN REACH.
--- NOTE | 2019-03-27 05:26 | NUR ---
PT C/O SOME SOB AT THIS TIME PLACED BACK ON BIPAP & CONTINUOUS POX. WILL MONITOR. CALL LIGHT IN REACH. PT INSTRUCTED TO CALL RN WHEN WANTING OFF OF BIPAP.
--- NOTE | 2019-03-27 07:18 | NUR ---
NOTIFIED OF PT'S REQUEST FOR MUCINEX. NEW ORDER RECEIVED FOR 1200 MG MUCINEX DM BID.
[2019-03-27 08:00] VITALS: BP 119/72
[2019-03-27 12:00] VITALS: BP 108/68
[2019-03-27 16:00] VITALS: BP 128/83
[2019-03-27 20:00] VITALS: BP 122/92; BP 124/86
[2019-03-28] VITALS: BP 116/90; BP 120/80
--- NOTE | 2019-03-28 00:58 | NUR ---
24 HR chart check completed.
[2019-03-28 06:04] LABS: BASO % 0.1 % (0.0-1.0); CREATININE 0.78 mg/dL (0.70-1.30); EOS % 0.2 % (1.0-4.0); HEMATOCRIT 52.1 % (42.0-52.0); HEMOGLOBIN 16.2 g/dl (14.0-18.0); LYMPH # 2.8 10*3/uL (1.3-4.4); LYMPH % 28.6 % (27.0-41.0); MEAN CELL VOLUME 93.5 fl (80.0-94.0); MEAN CORPUSCULAR HGB 29.1 pg (27.0-31.0); MEAN CORPUSCULAR HGB CONC 31.1 g/dl (33.0-37.0); MEAN PLATELET VOLUME 11.8 fl (9.6-12.3); MONO # 0.8 10*3/uL (0.1-1.0); MONO % 7.7 % (3.0-9.0); NEUT # 6.1 10*3/uL (2.3-7.9); NEUT % 62.6 % (47.0-73.0); PLATELET COUNT AUTOMATED 174 10*3/uL (130-400); RED BLOOD COUNT 5.57 10*6/uL (4.50-5.90); RED CELL DISTRI WIDTH 14.9 % (0-14.5); WHITE BLOOD COUNT 9.7 10*3/uL (4.8-10.8)
[2019-03-28 08:00] VITALS: BP 114/74
--- NOTE | 2019-03-28 09:05 | NUR ---
Discussed discharge planning with Dr. Carnes. Plans to discharge patient today as long as auth is received for [facility]. embroidery worker following.
--- NOTE | 2019-03-28 11:51 | NUR ---
patient assessed for home oxygen. at rest patient was spo2:94% heart rate:71, respiratory rate:19 blood pressure 114/74. during ambulation patient was good for most of the test. towards the end he started to show signs of fatigue and dyspnea. he dropped to 82%, placed on 2l nc and was to rise to 88-91%, turned up to 3lnc and was able to maintain 91-94% with rest on 3lnc spo2:96%.
[2019-03-28 12:00] VITALS: BP 115/65
[2019-03-28] MEDS ORDERED: NICODERM T (12:13)
[2019-03-28] MEDS ORDERED: LEVOFLOXACIN500 MG PO (12:13)
[2019-03-28] MEDS ORDERED: Ipratropium Brom3 ML NEB (12:13)
--- NOTE | 2019-03-28 12:17 | NUR ---
Faxed nebulizer prescription to [facility].
--- NOTE | 2019-03-28 13:45 | NUR ---
THIS PATIENT IS DISCHARGED ALL INSTRUCTIONS AND PERSCRIPTIONS GIVEN. NO QUESTIONS UNANSWERED
--- NOTE | 2019-03-28 16:01 | NUR ---
Spoke to Daphnie Alexandra at [facility] regarding nebulizer. The nebulizer is on its way to patient's home.
[2019-05-07 16:05] LABS: ACID FAST CULTURE Negative (.)
[2019-06-10 12:07] LABS: ORGANISM ID, MOLD Final report (.); RESULT 1 Final Identification (.)
== END 2019-03-28 13:45 | disposition home or self-care (01) | DRG 871 ==
LOC: ED 14:02 → EDHOLD 15:06 → 4E 15:06 → ICCU 15:11 → 4E 03-23 16:08
PROVIDERS: Emergency Medicine; Internal Medicine Critical Care Medicine; ADMIT Internal Medicine
PROC: 5A09357 Assistance with Respiratory Ventilation, Less than 24 Consecutive Hours, Continuous Positive Airway Pressure (ICD-10-PCS; principal; 2019-03-22)
PROC: 5A09357 Assistance with Respiratory Ventilation, Less than 24 Consecutive Hours, Continuous Positive Airway Pressure (ICD-10-PCS; 2019-03-23)
PROC: 0BC88ZZ Extirpation of Matter from Left Upper Lobe Bronchus, Via Natural or Artificial Opening Endoscopic (ICD-10-PCS; 2019-03-25)
PROC: 0BC98ZZ Extirpation of Matter from Lingula Bronchus, Via Natural or Artificial Opening Endoscopic (ICD-10-PCS; 2019-03-25)
PROC: 5A09357 Assistance with Respiratory Ventilation, Less than 24 Consecutive Hours, Continuous Positive Airway Pressure (ICD-10-PCS; 2019-03-25)
PROC: 0BC68ZZ Extirpation of Matter from Right Lower Lobe Bronchus, Via Natural or Artificial Opening Endoscopic (ICD-10-PCS; 2019-03-25)
PROC: 0BC58ZZ Extirpation of Matter from Right Middle Lobe Bronchus, Via Natural or Artificial Opening Endoscopic (ICD-10-PCS; 2019-03-25)
PROC: 0BC48ZZ Extirpation of Matter from Right Upper Lobe Bronchus, Via Natural or Artificial Opening Endoscopic (ICD-10-PCS; 2019-03-25)
PROC: 0BC38ZZ Extirpation of Matter from Right Main Bronchus, Via Natural or Artificial Opening Endoscopic (ICD-10-PCS; 2019-03-25)
PROC: 0BC78ZZ Extirpation of Matter from Left Main Bronchus, Via Natural or Artificial Opening Endoscopic (ICD-10-PCS; 2019-03-25)
PROC: 0BCB8ZZ Extirpation of Matter from Left Lower Lobe Bronchus, Via Natural or Artificial Opening Endoscopic (ICD-10-PCS; 2019-03-25)
PROC: 0BC18ZZ Extirpation of Matter from Trachea, Via Natural or Artificial Opening Endoscopic (ICD-10-PCS; 2019-03-25)
PROC: 5A09357 Assistance with Respiratory Ventilation, Less than 24 Consecutive Hours, Continuous Positive Airway Pressure (ICD-10-PCS; 2019-03-26)
PROC: 5A09357 Assistance with Respiratory Ventilation, Less than 24 Consecutive Hours, Continuous Positive Airway Pressure (ICD-10-PCS; 2019-03-27)
PROC: 5A09357 Assistance with Respiratory Ventilation, Less than 24 Consecutive Hours, Continuous Positive Airway Pressure (ICD-10-PCS; 2019-03-28)
DX: A41.9 Sepsis, unspecified organism (principal); J15.6 Pneumonia due to other Gram-negative bacteria; J96.22 Acute and chronic respiratory failure with hypercapnia; J96.21 Acute and chronic respiratory failure with hypoxia; J44.1 Chronic obstructive pulmonary disease with (acute) exacerbation; J44.0 Chronic obstructive pulmonary disease with (acute) lower respiratory infection; F33.0 Major depressive disorder, recurrent, mild; T17.590A Other foreign object in bronchus causing asphyxiation, initial encounter; F17.210 Nicotine dependence, cigarettes, uncomplicated; I10 Essential (primary) hypertension; K21.0 Gastro-esophageal reflux disease with esophagitis; R62.7 Adult failure to thrive; E66.9 Obesity, unspecified; F41.1 Generalized anxiety disorder; I48.2 Chronic atrial fibrillation; M17.0 Bilateral primary osteoarthritis of knee; E11.9 Type 2 diabetes mellitus without complications; K59.09 Other constipation; J20.9 Acute bronchitis, unspecified; X58.XXXA Exposure to other specified factors, initial encounter; Y93.89 Activity, other specified; Y92.89 Other specified places as the place of occurrence of the external cause; Y99.8 Other external cause status; Z71.6 Tobacco abuse counseling; Z79.51 Long term (current) use of inhaled steroids; Z79.899 Other long term (current) drug therapy; Z90.49 Acquired absence of other specified parts of digestive tract; Z83.3 Family history of diabetes mellitus; Z68.37 Body mass index [BMI] 37.0-37.9, adult

== ENCOUNTER 2019-04-07 12:08 | Emergency (ER) | payer OTHER ==
[~2019-04-07] VITALS: Ht 187.9 cm; Wt 127.0 kg
[~2019-04-07 12:08] MED LIST changes: +Ipratropium Brom3 ML NEB; +NICODERM T
[2019-04-07 12:10] VITALS: BP 140/101
[2019-04-08] MEDS ORDERED: ROBAXIN-750750 MG PO (18:36)
[2019-04-08] MEDS ORDERED: MEDROL DOSEPAK4 MG PO (18:36)
== END 2019-04-08 12:19 | disposition left against medical advice (07) ==
LOC: ED 12:08
DX: M54.5 Low back pain (principal); Z53.21 Procedure and treatment not carried out due to patient leaving prior to being seen by health care provider

== ENCOUNTER 2019-04-08 15:36 | Emergency (ER) | payer OTHER ==
[~2019-04-08] VITALS: Ht 187.9 cm; Wt 127.0 kg
[2019-04-08 15:39] VITALS: BP 143/85
[2019-04-08] MEDS ORDERED: MEDROL DOSEPAK4 MG PO (18:36)
[2019-04-08] MEDS ORDERED: ROBAXIN-750750 MG PO (18:36)
== END 2019-04-08 18:43 | disposition home or self-care (01) ==
LOC: ED 15:36
DX: S39.012A Strain of muscle, fascia and tendon of lower back, initial encounter (principal); F17.200 Nicotine dependence, unspecified, uncomplicated; J44.9 Chronic obstructive pulmonary disease, unspecified; G89.29 Other chronic pain; I11.0 Hypertensive heart disease with heart failure; I50.9 Heart failure, unspecified; Z90.49 Acquired absence of other specified parts of digestive tract; X50.0XXA Overexertion from strenuous movement or load, initial encounter; Y93.89 Activity, other specified; Y92.89 Other specified places as the place of occurrence of the external cause; Y99.8 Other external cause status

== ENCOUNTER 2019-05-05 14:19 | Inpatient (IN) | payer OTHER ==
[~2019-05-05] VITALS: Ht 188 cm; Wt 139.7 kg
[~2019-05-05 14:19] MED LIST changes: +ROBAXIN-750750 MG PO
[2019-05-05 14:33] VITALS: BP 111/71
[2019-05-05 14:50] LABS: BASO % 0.2 % (0.0-1.0); EOS % 0.2 % (1.0-4.0); HEMOGLOBIN 15.9 g/dl (14.0-18.0); LYMPH # 3.3 10*3/uL (1.3-4.4); LYMPH % 24.9 % (27.0-41.0); MEAN CELL VOLUME 91.2 fl (80.0-94.0); MEAN CORPUSCULAR HGB 29.6 pg (27.0-31.0); MEAN CORPUSCULAR HGB CONC 32.4 g/dl (33.0-37.0); MEAN PLATELET VOLUME 11.8 fl (9.6-12.3); MONO # 0.9 10*3/uL (0.1-1.0); MONO % 6.8 % (3.0-9.0); NEUT # 8.9 10*3/uL (2.3-7.9); NEUT % 67.4 % (47.0-73.0); PLATELET COUNT AUTOMATED 182 10*3/uL (130-400); RED BLOOD COUNT 5.37 10*6/uL (4.50-5.90); RED CELL DISTRI WIDTH 15.5 % (0-14.5); WHITE BLOOD COUNT 13.2 10*3/uL (4.8-10.8)
[2019-05-05 15:01] LABS: ACT PARTIAL THROMBO TIME 25.6 SECONDS (20.0-32.1); INTERNATIONAL NORM RATIO 0.9 (2.0-3.5)
[2019-05-05 15:08] LABS: ALBUMIN 2.8 gm/dl (3.1-4.5); ALKALINE PHOSPHATASE 104 U/L (45-117); BUN 10 mg/dl (7-24); CHLORIDE 107 mmol/L (98-107); CREATININE 0.73 mg/dL (0.70-1.30); POTASSIUM 3.6 mmol/L (3.5-5.1); SGOT/AST 68 IU/L (3-35); SGPT/ALT 78 U/L (12-78); SODIUM 142 mmol/L (136-145); TOTAL PROTEIN 6.4 gm/dL (6.4-8.2)
[2019-05-05 15:15] LABS: TROPONIN I < 0.015 ng/ml (<0.045)
[2019-05-05 15:24] VITALS: BP 123/79
[2019-05-05 16:33] VITALS: BP 155/95
--- NOTE | 2019-05-05 17:40 | NUR ---
A MEAL TRAY WAS ORDERED FOR THE PATIENT
--- NOTE | 2019-05-05 19:46 | NUR ---
A 68, admitted to 5E, under the services of Dr. CR OSORIO,MORA Marques with a diagnosis of COPD EXACERBATION. Chief complaint is WEAK/TIRED/SOB. Patient arrived via stretcher from ER. Monitor applied. Initial assessment completed. Vital signs taken and recorded. DR. CR OSORIO,MORA Marques notified of admission to the unit. Orders received. See assessment for past medical history, medications and allergies. Patient and/or family oriented to unit. Clothing/patient valuable form completed. BRYAN CHEN
[2019-05-05 20:00] VITALS: BP 144/58
--- NOTE | 2019-05-05 21:04 | NUR ---
DR HANKINS CALLED FOR ADMISSION ORDERS. NEW ORDERS REC'D.
[2019-05-06] VITALS: BP 117/74
--- NOTE | 2019-05-06 06:01 | NUR ---
WE[facility] [id number] Please refer to the physician's history and physical for past medical history, comorbid conditions, and allergies. Diagnosis: COPD WITH EXACERBATION Rivera Score: 21,LOW OR NO RISK WOUND DESCRIPTIONS: Wound Number: 1 Location of the wound: left wrist Type of wound: skin tear Thickness: Partial Size: 1.2cm x 0.7cm x 0.1cm Tunneling: none Undermining: none Sinus Tract: none Presence of Exudate: Serous Amount: Light Color: Red Odor: None Periwound Skin Appearance: Normal Wound edges: approximated Pain (associated with wound): none at time of assessment How does patient state this happened? pt stated that he bumped his hand and this happened Wound Number: 2 Location of the wound: left hand Type of wound: skin tear Thickness: Partial Size: 0.8cm x 0.4cm x 0.1cm Tunneling: none Undermining: none Sinus Tract: none Presence of Exudate: Serous Amount: Light Color: Red Odor: None Periwound Skin Appearance: Normal Wound edges: approximated Pain (associated with wound): none at time of assessment How does patient state this happened? pt stated that he bumped his hand and this happened Surface the patient is resting on: Isoflex SKIN PREVENTION RECOMMENDATION: 1. Pressure redistribution support surface as appropriate 2. Elevate heels 3. Remove boots/TEDS every shift and reapply 4. Head of bed 30 degrees as tolerated 5. Assess nutrition and hydration 6. Manage moisture 7. Avoid the use of containment devices while in bed 8. Use absorptive products on surfaces limit layers of linens on bed 9. Turn and reposition every 1-2 hours in bed and every 1 hour in chair as tolerated 10. Weight shifts every 15 minutes while up in chair 11. Offloading with pillows or device to keep heels elevated off bed 12. Monitor skin at least every shift 13. Inspect under medical devices twice a day WOUND TREATMENT RECOMMENDATIONS: Skin tear guidelines: Cleanse left hand and left wrist with nss and apply sureprep around the wound therahoney to wound bed and cover with optifoam gentle. Patient stated he will care for this area when he returns home.
--- NOTE | 2019-05-06 06:20 | NUR ---
DR MANJARREZ NOTIFIED OF CONSULT.
[2019-05-06 06:56] LABS: BASO % 0.1 % (0.0-1.0); HEMATOCRIT 47.2 % (42.0-52.0); HEMOGLOBIN 15.3 g/dl (14.0-18.0); LYMPH # 1.6 10*3/uL (1.3-4.4); MEAN CELL VOLUME 91.5 fl (80.0-94.0); MEAN CORPUSCULAR HGB 29.7 pg (27.0-31.0); MEAN CORPUSCULAR HGB CONC 32.4 g/dl (33.0-37.0); MEAN PLATELET VOLUME 11.3 fl (9.6-12.3); MONO # 0.2 10*3/uL (0.1-1.0); MONO % 2.3 % (3.0-9.0); NEUT # 6.3 10*3/uL (2.3-7.9); PLATELET COUNT AUTOMATED 193 10*3/uL (130-400); RED BLOOD COUNT 5.16 10*6/uL (4.50-5.90); RED CELL DISTRI WIDTH 14.9 % (0-14.5); WHITE BLOOD COUNT 8.2 10*3/uL (4.8-10.8)
--- NOTE | 2019-05-06 10:30 | NUR ---
Lead Dental Assistant in to talk to patient. Patient states lives at home alone with friends checking in on him. There are 0 steps in the home. Physician: Dr. Miryam Rendon [facility] Home health services: none Patient's level of ADLs: INDEPENDENT Patient has working utilities: yes DME: O2 @ 2L nc prn, portable O2 tanks, nebulizer, O2 supplier [employer], c-pap, shower chair Follow-up physician's appointment after d/c: he prefers to make his own follow up appt after discharge Does patient want to access PORTAL?: no Discharge plan discussed with patient. He lives at home alone with his friends checking in on him. He is independent in his ADLs and ambulation. Discussed home health care services and he denies any home needs at this time. He does have a cleaning lady. When medically stable he will be discharged to home. A friend will provide transportation on discharge. MIKEY FARAH
[2019-05-06 12:00] VITALS: BP 152/95
--- NOTE | 2019-05-06 12:27 | NUR ---
DR. TELLEZ NOTIFIED OF CONSULT.
[2019-05-06 16:00] VITALS: BP 122/74
[2019-05-06 20:00] VITALS: BP 120/69
[2019-05-07] VITALS: BP 96/55
--- NOTE | 2019-05-07 01:01 | NUR ---
24 HR chart check completed.
[2019-05-07 08:00] VITALS: BP 120/68
[2019-05-07 08:53] VITALS: BP 120/72
--- NOTE | 2019-05-07 11:00 | NUR ---
Progressive Care Nurse in to see patient. No new needs or request at this time. He is ambulating in his room without distress noted. Family at the bedside. He denies any home needs. When medically stable he will be discharged to home. Awaiting Dr. Amato consult. Treating COPD.
[2019-05-07 12:00] VITALS: BP 118/69
--- NOTE | 2019-05-07 14:34 | NUR ---
Dr. Carnes in early AM. Ok'd to order miralax at pt. request. Miralax given for c/o constipation.
[2019-05-07 16:00] VITALS: BP 116/80
[2019-05-07 20:00] VITALS: BP 131/80
--- NOTE | 2019-05-07 20:15 | NUR ---
AAOX3 AMBULATING IN HALLWAY. PT. BACK IN ROOM FOR ASSESSMENT. LUNGS WITH RALES IN THE BASES BILATERALLY; COUGH PRODUCTIVE FOR YELLOW SPUTUM. HEP LOCK INTACT TO RIGHT HAND. PT. VOICES NO C/O AT THIS TIME; NO DISTRESS NOTED. CALL LIGHT WITHIN REACH. 02 NOT ON AT THIS TIME; PT. STATES THAT HE WEARS IT NEEDED.
--- NOTE | 2019-05-07 22:00 | NUR ---
RESTING IN BED; VOICES NO C/O AT THIS TIME. CALL LIGHT WITHIN REACH.
[2019-05-08] VITALS: BP 132/69
--- NOTE | 2019-05-08 10:00 | NUR ---
Manager Home in to see patient. No new needs or request at this time. He denies any home needs. Per multidisciplinary discharge planning meeting he is scheduled for an EDG/colo tomorrow with Dr. Amato. When medically stable he will be discharged to home.
[2019-05-08 12:00] VITALS: BP 148/90
[2019-05-08 16:49] VITALS: BP 126/80
--- NOTE | 2019-05-08 19:40 | NUR ---
24 HR chart check completed.
[2019-05-08 20:00] VITALS: BP 113/78
[2019-05-09] VITALS (8 sets, daily range): BP systolic 108–145; BP diastolic 60–88
--- NOTE | 2019-05-09 07:30 | NUR ---
PT IS AWAKE AND SITTING UP IN BED AT THIS TIME. NO S/S OF DISTRESS NOTED. RESPS ARE EASY AND NONLABORED. PT STATES THAT HE IS FEELING WELL BUT SOMEWHAT ANXIOUS FOR PROCEDURE TODAY. BED IS LOW, CALL LIGHT WITHIN REACH. WILL CONTINUE TO MONITOR.
--- NOTE | 2019-05-09 08:38 | NUR ---
24 HR CHART CHECK COMPLETE.
--- NOTE | 2019-05-09 09:00 | NUR ---
In School Suspension Aide in to see patient. No new needs or request at this time. He denies any home needs. Per multidisciplinary discharge planning meeting he is scheduled for an EDG/colo today. When medically stable he will be discharged to home.
--- NOTE | 2019-05-09 10:45 | NUR ---
PT OFF FLOOR FOR SURGERY AT THIS TIME.
--- NOTE | 2019-05-09 19:15 | NUR ---
REPORT OBTAINED FROM PRIOR NURSE. PATIENT NO COMPLAINTS, MADE AWARE THAT HE CANNOT LEAVE FLOOR, STATED UNDERSTANDING. CALL LIGHT WITHIN REACH
[2019-05-10] VITALS: BP 128/77
--- NOTE | 2019-05-10 04:12 | NUR ---
24 HR chart check completed.
[2019-05-10 07:36] VITALS: BP 118/82
[2019-05-10 08:00] VITALS: BP 126/80
[2019-05-10 12:00] VITALS: BP 134/70
[2019-05-10] MEDS ORDERED: MEDROL DOSEPAK4 MG PO (14:46)
[2019-05-10] MEDS ORDERED: NICODERM CQ1 EAC1 T (14:54)
--- NOTE | 2019-05-10 15:10 | NUR ---
Discharge instructions reviewed with patient. Patient receptive and verbalizes understanding. Follow-up care arranged. Written instructions given to patient. DISCHARGED TO [facility], AMBULATORY, FOR TRANSPORT HOME BY PRIVATE VEHICLE AT THIS TIME. MANNIE DECKER
== END 2019-05-10 16:08 | disposition home or self-care (01) | DRG 391 ==
LOC: ED 14:19 → EDHOLD 18:20 → 5E 18:20
PROVIDERS: Emergency Medicine; ADMIT Internal Medicine
PROC: 0DB68ZX Excision of Stomach, Via Natural or Artificial Opening Endoscopic, Diagnostic (ICD-10-PCS; principal; 2019-05-09)
PROC: 0DJD8ZZ Inspection of Lower Intestinal Tract, Via Natural or Artificial Opening Endoscopic (ICD-10-PCS; 2019-05-09)
DX: K29.70 Gastritis, unspecified, without bleeding (principal); J96.21 Acute and chronic respiratory failure with hypoxia; J44.1 Chronic obstructive pulmonary disease with (acute) exacerbation; F11.20 Opioid dependence, uncomplicated; E44.0 Moderate protein-calorie malnutrition; J44.0 Chronic obstructive pulmonary disease with (acute) lower respiratory infection; I10 Essential (primary) hypertension; G89.29 Other chronic pain; M25.562 Pain in left knee; M25.561 Pain in right knee; Z96.653 Presence of artificial knee joint, bilateral; K21.0 Gastro-esophageal reflux disease with esophagitis; E66.9 Obesity, unspecified; F41.1 Generalized anxiety disorder; M17.0 Bilateral primary osteoarthritis of knee; F17.210 Nicotine dependence, cigarettes, uncomplicated; J20.9 Acute bronchitis, unspecified; R62.7 Adult failure to thrive; I48.20 Chronic atrial fibrillation, unspecified; Z90.49 Acquired absence of other specified parts of digestive tract; Z87.01 Personal history of pneumonia (recurrent); Z83.3 Family history of diabetes mellitus; Z68.39 Body mass index [BMI] 39.0-39.9, adult; Z71.6 Tobacco abuse counseling

== ENCOUNTER 2019-06-27 20:08 | Inpatient (IN) | payer OTHER ==
[~2019-06-27] VITALS: Ht 187.9 cm; Wt 140.8 kg
[~2019-06-27 20:08] MED LIST changes: +NICODERM CQ1 EAC1 T
[2019-06-27 20:11] VITALS: BP 140/81
[2019-06-27 20:32] LABS: HEMATOCRIT 52.9 % (42.0-52.0); HEMOGLOBIN 17.5 g/dl (14.0-18.0); MEAN CORPUSCULAR HGB 30.4 pg (27.0-31.0); MEAN CORPUSCULAR HGB CONC 33.1 g/dl (33.0-37.0); MEAN PLATELET VOLUME 11.7 fl (9.6-12.3); PLATELET COUNT AUTOMATED 158 10*3/uL (130-400); RED BLOOD COUNT 5.75 10*6/uL (4.50-5.90); RED CELL DISTRI WIDTH 13.5 % (0-14.5); WHITE BLOOD COUNT 13.3 10*3/uL (4.8-10.8)
[2019-06-27 20:38] VITALS: BP 140/81; BP 142/84
[2019-06-27 20:41] LABS: ACT PARTIAL THROMBO TIME 26.8 SECONDS (20.0-32.1); INTERNATIONAL NORM RATIO 0.9 (2.0-3.5)
--- NOTE | 2019-06-27 20:45 | NUR ---
PT W/O ACUTE DISTRESS NOTED WITH SAFETY PRECAUTIONS INTACT,CALL LIGHT WITHIN REACH.
[2019-06-27 20:50] LABS: ATYPICAL LYMPHS 3 % (0-0); BASOPHILS 2 % (0-1); PLATELET SUFFICIENCY NORMAL (NORMAL); TOTAL CELLS COUNTED 100 #CELLS
[2019-06-27 20:53] LABS: ALBUMIN 3.2 gm/dl (3.1-4.5); ALKALINE PHOSPHATASE 94 U/L (45-117); BUN 10 mg/dl (7-24); CHLORIDE 109 mmol/L (98-107); CREATININE 0.74 mg/dL (0.70-1.30); POTASSIUM 3.9 mmol/L (3.5-5.1); SGOT/AST 47 IU/L (3-35); SGPT/ALT 73 U/L (12-78); SODIUM 142 mmol/L (136-145); TOTAL PROTEIN 6.8 gm/dL (6.4-8.2)
[2019-06-27 20:55] LABS: TROPONIN I < 0.015 ng/ml (<0.045)
[2019-06-27 22:20] VITALS: BP 123/81
[2019-06-27 23:18] VITALS: BP 110/75
--- NOTE | 2019-06-27 23:19 | NUR ---
PT IN BED STATES HE STILL FEELS NOTED RELIEF FROM PAIN MEDS PT HAD NO REQUESTS AT THIS TIME
--- NOTE | 2019-06-28 | NUR ---
PATIENT IS RESTING WITHOUT COMPLAINTS. OFFERRED INPT BED AT THIS TIME, PATIENT STATES HED RATHER NOT CHANGE BEDS AT THIS TIME.
--- NOTE | 2019-06-28 03:42 | NUR ---
PATIENT RESTING DENIES ANY DISCOMFORT AT THIS TIME.
[2019-06-28 03:43] VITALS: BP 121/76
--- NOTE | 2019-06-28 04:19 | NUR ---
REPORT FROM KEEGAN SALGUERO AT THIS TIME
--- NOTE | 2019-06-28 05:39 | NUR ---
PT TO CT
--- NOTE | 2019-06-28 05:52 | NUR ---
PT BACK FROM CT AT THIS TIME
--- NOTE | 2019-06-28 06:04 | NUR ---
PATIENT REPORTS IMPROVEMENT IN PAIN
--- NOTE | 2019-06-28 07:03 | NUR ---
PATIENT REPORT FROM MIKEY Mota RN AT THIS TIME.
[2019-06-28 08:58] VITALS: BP 120/64
--- NOTE | 2019-06-28 08:58 | NUR ---
PT RESTING WQITH EYES CLOSED RESP EASY AN NON-LABERED NO ACUTE DISTRESS NOTED AT THIS TIME.
--- NOTE | 2019-06-28 09:36 | NUR ---
CONSULT CALLED TO 'S ANSWERING SERVICE.
--- NOTE | 2019-06-28 09:45 | NUR ---
A 68, admitted to 5E, under the services of Dr. CR OSORIO,MORA Marques with a diagnosis of CHEST PAIN. Chief complaint is MID STERNAL CHEST PAIN, RIGHT NECK PAIN, SHOULER PAIN.. Patient arrived via ambulatory from ER. Monitor applied. Initial assessment completed. Vital signs taken and recorded. DR. CR OSORIO,MORA Marques notified of admission to the unit. Orders received. See assessment for past medical history, medications and allergies. Patient and/or family oriented to unit. [facility] visitation policy reviewed. Clothing/patient valuable form completed. MARION ATKINS
[2019-06-28 09:59] VITALS: BP 145/91
--- NOTE | 2019-06-28 09:59 | NUR ---
CALLED FOR ADMISSION ORDERS. NO ANSWER. LEFT MESSAGE. AWAITIGN CALL BACK.
--- NOTE | 2019-06-28 10:21 | NUR ---
SPOKE WITH . NEW ORDERS FOR DUONEBS AND MORPHINE GIVEN. SEE MAR. WILL BE IN TO SEE PT LATER TODAY.
--- NOTE | 2019-06-28 10:32 | NUR ---
MED REC UPDATED.
--- NOTE | 2019-06-28 10:42 | NUR ---
CALLED BACK. ORDERED TO GIVEN TORADOL INSTEAD OF MORPHINE AND START PULMICORT. SEE MAR.
--- NOTE | 2019-06-28 11:40 | NUR ---
PER PT, PAIN IS BETTER FOLLOWING TORADOL. PAIN RATED 3/10. TORADOL EFFECTIVE. CALL LIGHT WITHIN REACH. WILL CONTINUE TO MONITOR.
[2019-06-28 12:00] VITALS: BP 142/90
[2019-06-28 14:00] VITALS: BP 143/85
--- NOTE | 2019-06-28 18:09 | NUR ---
PT MEDICATED WITH PRN TORADOL FOR C/O NECK PAIN. PT RATES PAIN 9/10. WILL MONITOR.
--- NOTE | 2019-06-28 19:30 | NUR ---
PATIENT IS RESTING IN BED WITH EASY AND REGULAR RESPERS ON ROOM AIR. ASSESSMENT IS COMPLETE WITH NO C/O OR S/S OF DISTRESS NOTED AT THIS TIME. BED IS LOW, LOCKED, AND CALL LIGHT IS WITHIN REACH. WILL CONTINUE TO MONITOR, SEE SHIFT ASSESSMENT.
[2019-06-28 20:00] VITALS: BP 102/54
--- NOTE | 2019-06-28 21:30 | NUR ---
Patient c/o RIGHT ARM/NECK pain. Rated as 7 on a scale of 1-10. PRN TORADOL GIVEN AT THIS TIME. PATIENT TOLERATED WELL, CALL LIGHT IS WITHIN REACH.
--- NOTE | 2019-06-28 22:00 | NUR ---
PRN TORADOL EFFECTIVE PER PATIENT. CALL LIGHT IS WITHIN REACH.
[2019-06-29] VITALS: BP 132/82
--- NOTE | 2019-06-29 01:24 | NUR ---
Patient c/o RIGHT ARM/NECK pain. Rated as 6 on a scale of 1-10. PRN TORADOL GIVEN AT THIS TIME. PATIENT TOLERATED WELL, CALL LIGHT IS WITHIN REACH.
--- NOTE | 2019-06-29 07:30 | NUR ---
PT RESTING IN BED. VOICES NO CONCERNS AT THIS TIME. RESPS EASY AND NON LABORED. NO S/S OF DISTRESS NOTED. CALL LIGHT WITHIN REACH.
[2019-06-29 08:00] VITALS: BP 118/82; BP 172/87
--- NOTE | 2019-06-29 08:09 | NUR ---
PT COMPLAINS OF 7/10 RIGHT SIDED NECK AND ARM PAIN. MEDICATED PER ORDER. WILL MONITOR FOR RELIEF. VOICES NO OTHER CONCERNS AT THIS TIME. RESTING IN BED. CALL LIGHT WITHIN REACH.
--- NOTE | 2019-06-29 09:30 | NUR ---
PAIN MEDICATION PARTIALLY EFFECTIVE PER PT
--- NOTE | 2019-06-29 10:45 | NUR ---
Shift chart check completed.
[2019-06-29 12:00] VITALS: BP 124/7
--- NOTE | 2019-06-29 12:57 | NUR ---
PT RESTING IN BED. VOICES NO CONCERNS AT THIS TIME. RESPS EASY AND NON LABORED. CALL LIGHT WIHTIN REACH
--- NOTE | 2019-06-29 14:08 | NUR ---
PT COMPLAINS OF 7/10 ACHING NECK PAIN. MEDICATED PER ORDER. WILL MONITOR FOR RELIEF. VOICES NO OTHER CONCERNS AT THIS TIME. RESTING IN BED WATCHING TV. CALL LIGHT WITHIN REACH
--- NOTE | 2019-06-29 15:08 | NUR ---
PAIN MEDICATION EFFECTIVE PER PT
[2019-06-29 16:00] VITALS: BP 104/60
[2019-06-29 20:00] VITALS: BP 103/70
--- NOTE | 2019-06-29 20:05 | NUR ---
PATIENT IS RESTING IN BED WITH EASY AND REGULAR RESPERS ON ROOM AIR. ASSESSMENT IS COMPLETE WITH NO S/S OF DISTRESS NOTED. Patient c/o RIGHT ARM/NECK pain. Rated as 6 on a scale of 1-10. PRN TORADOL GIVEN AT THIS TIME. PATIENT TOLERATED WELL. BED IS LOW, LOCKED, AND CALL LIGHT IS WITHIN REACH. WILL CONTINUE TO MONITOR.
--- NOTE | 2019-06-29 21:00 | NUR ---
PRN TORADOL EFFECTIVE PER PATIENT. CALL LIGHT IS WITHIN REACH.
[2019-06-30] VITALS: BP 98/59
--- NOTE | 2019-06-30 03:49 | NUR ---
Patient c/o RIGHT ARM/NECK pain. Rated as 6 on a scale of 1-10. PRN TORADOL GIVEN AT THIS TIME. PATIENT TOLERATED WELL, CALL LIGHT IS WITHIN REACH. ROSSY HYLTON A
--- NOTE | 2019-06-30 06:46 | NUR ---
CHART CHECK COMPLETE.
--- NOTE | 2019-06-30 07:30 | NUR ---
PT RESTING IN BED. VOICES NO CONCERNS AT THIS TIME. RESPS EASY AND NON LABORED. NO S/S OF DISTRESS NOTED. CALL LIGHT WITHIN REACH. WHITE BOARD UPDATED.
[2019-06-30 08:00] VITALS: BP 122/82
--- NOTE | 2019-06-30 08:42 | NUR ---
Shift chart check completed.
--- NOTE | 2019-06-30 09:00 | NUR ---
Hot Tar Roofer Helper in to talk to patient. Patient states lives at home with a;pme. There are no steps in the home. Physician: arvind christie [facility]acy[facility] Home health services: none Patient's level of ADLs: INDEPENDENT Patient has working utilities: all working DME: home oxygen, portable tanks, nebulizer from [employer] Follow-up physician's appointment after d/c: patient prefers to make his own follow up doctors appointment Does patient want to access PORTAL?: no Discharge plan discussed with patient, he lives at home alone, he states he is independent in adls and ambulation, has home oxygen and portable tanks, he states he will be returning home when medically stable, he will have a stress test today, case management will follow. BARBARA GARCÍA
--- NOTE | 2019-06-30 10:04 | NUR ---
PT COMPLAINS OF RIGHT SIDED ACHING NECK PAIN. MEDICATED PER ORDER. WILL MONITOR FOR RELIEF.VOICES NO OTHER CONCERNS AT THIS TIME. RESTING IN BED. CALL LIGHT WITHIN REACH.
--- NOTE | 2019-06-30 11:00 | NUR ---
PAIN MEDICATION PARTIALLY EFFECTIVE PER PT
--- NOTE | 2019-06-30 11:30 | NUR ---
PT TAKEN OFF THE FLOOR FOR STRESS TEST
--- NOTE | 2019-06-30 13:13 | NUR ---
INFORMED CONSENT SIGNED FOR LEXISCAN STRESS TEST WITH DR. HANKINS. RESTING EKG RBBB WITH PVC'S, HR 74, BP 140/70. PULSE OX 95% AND LUNGS CLEAR. COMPLETED ONE MINUTE OF LEXISCAN PROTOCL RECEIVING LEXISCAN 0.4MG OVER 10 SECONDS. NO ARRHYTHMIAS OR ST CHANGES NOTED. PT C/O HOT FLASH FEELING. LAST RECOVERY HR 83, BP 122/68. WAITING NUCLEAR SCANING IN STABLE CONDITION.
--- NOTE | 2019-06-30 13:30 | NUR ---
[facility] Client Service Supervisor Micaela called in to receive and update on patients status. VIOLENT CRIMES DETECTIVE provided update. -ALY Gunn
[2019-06-30 16:00] VITALS: BP 137/90
--- NOTE | 2019-06-30 16:51 | NUR ---
Discharge instructions reviewed with patient/family. Patient receptive and verbalizes understanding. Follow-up care arranged. Written instructions given to patient/family. HISSOM,JESSIE The Discharge Plan/Instructions have been completed.
== END 2019-06-30 16:51 | disposition home or self-care (01) | DRG 311 ==
LOC: ED 20:08 → EDHOLD 22:47 → 5E 22:47
PROVIDERS: Emergency Medicine; ADMIT Internal Medicine
PROC: 4A02XM4 Measurement of Cardiac Total Activity, External Approach (ICD-10-PCS; principal; 2019-06-30)
PROC: 3E073KZ Introduction of Other Diagnostic Substance into Coronary Artery, Percutaneous Approach (ICD-10-PCS; principal; 2019-06-30)
DX: I20.0 Unstable angina (principal); J96.10 Chronic respiratory failure, unspecified whether with hypoxia or hypercapnia; F11.20 Opioid dependence, uncomplicated; I48.21 Permanent atrial fibrillation; J43.2 Centrilobular emphysema; E11.9 Type 2 diabetes mellitus without complications; K21.0 Gastro-esophageal reflux disease with esophagitis; Z96.652 Presence of left artificial knee joint; E66.01 Morbid (severe) obesity due to excess calories; M54.2 Cervicalgia; M25.511 Pain in right shoulder; R62.7 Adult failure to thrive; M47.812 Spondylosis without myelopathy or radiculopathy, cervical region; F41.1 Generalized anxiety disorder; M17.0 Bilateral primary osteoarthritis of knee; I11.0 Hypertensive heart disease with heart failure; I50.9 Heart failure, unspecified; Z87.01 Personal history of pneumonia (recurrent); Z87.440 Personal history of urinary (tract) infections; Z90.49 Acquired absence of other specified parts of digestive tract; Z83.3 Family history of diabetes mellitus; Z68.39 Body mass index [BMI] 39.0-39.9, adult

== ENCOUNTER 2019-07-03 11:12 | Inpatient (IN) | payer OTHER ==
[~2019-07-03] VITALS: Ht 187.9 cm; Wt 141.1 kg
[2019-07-03 11:13] VITALS: BP 152/92
[2019-07-03 12:06] LABS: BILIRUBIN NEGATIVE (NEGATIVE); BLOOD TRACE-INTACT (NEGATIVE); CLARITY SL CLOUDY (CLEAR); COLOR YELLOW (YELLOW); GLUCOSE NEGATIVE (NEGATIVE); KETONE NEGATIVE (NEGATIVE); LEUKO ESTERASE NEGATIVE (NEGATIVE); NITRITE NEGATIVE (NEGATIVE); PH 6.5 (5.0-9.0)
--- NOTE | 2019-07-03 12:10 | NUR ---
PT REQUESTS TO STAY IN HIS PANTS UNTIL ARRIVAL TO INPATIENT BED.
[2019-07-03 12:31] LABS: BACTERIA TRACE; MUCOUS TRACE
[2019-07-03 12:41] LABS: ALBUMIN 2.9 gm/dl (3.1-4.5); ALKALINE PHOSPHATASE 85 U/L (45-117); BUN 10 mg/dl (7-24); CHLORIDE 106 mmol/L (98-107); CREATININE 0.71 mg/dL (0.70-1.30); LIPASE 47 U/L (73-393); POTASSIUM 3.9 mmol/L (3.5-5.1); SGOT/AST 53 IU/L (3-35); SGPT/ALT 71 U/L (12-78); SODIUM 138 mmol/L (136-145); TOTAL PROTEIN 6.5 gm/dL (6.4-8.2)
[2019-07-03 12:42] LABS: TROPONIN I < 0.015 ng/ml (<0.045)
[2019-07-03 12:49] VITALS: BP 146/90
[2019-07-03 12:56] LABS: BASO % 0.4 % (0.0-1.0); EOS % 12.1 % (1.0-4.0); HEMATOCRIT 50.9 % (42.0-52.0); HEMOGLOBIN 16.3 g/dl (14.0-18.0); LYMPH # 2.3 10*3/uL (1.3-4.4); LYMPH % 29.1 % (27.0-41.0); MEAN CELL VOLUME 92.5 fl (80.0-94.0); MEAN CORPUSCULAR HGB 29.6 pg (27.0-31.0); MEAN PLATELET VOLUME 11.3 fl (9.6-12.3); MONO # 0.8 10*3/uL (0.1-1.0); MONO % 9.4 % (3.0-9.0); NEUT # 3.9 10*3/uL (2.3-7.9); NEUT % 48.9 % (47.0-73.0); PLATELET COUNT AUTOMATED 144 10*3/uL (130-400); RED CELL DISTRI WIDTH 13.2 % (0-14.5)
[2019-07-03 13:54] VITALS: BP 100/72
[2019-07-03] MEDS ORDERED: PROAIR HFA8.5 GM INH (14:17)
--- NOTE | 2019-07-03 14:30 | NUR ---
Time: 1429 A 68 year old MALE admitted to 5E under services of ROMULO SANCHEZ MD. Pt. arrived via stretcher from ER. Chief complaint: RIGHT ARM WOUND. WOUND TO RIGHT WRIST, SCABBED, NO OPEN AREAS AT THIS TIME. MEDICATIONS UPDATED WITH PATIENT MEERA HARGROVE
--- NOTE | 2019-07-03 14:56 | NUR ---
LEFT MESSAGE WITH DR. GILBERT THAT WE NEED ADMISSION ORDERS
[2019-07-03 16:00] VITALS: BP 113/71
[2019-07-03 20:00] VITALS: BP 101/71
[2019-07-04] VITALS: BP 112/69
--- NOTE | 2019-07-04 01:10 | NUR ---
Patient resting quietly with no c/o discomfort. Respirations easy and regular. Vital signs stable. No overt distress. LORENZA DAUGHERTY
--- NOTE | 2019-07-04 05:14 | NUR ---
[facility] [id number] Please refer to the physician's history and physical for past medical history, comorbid conditions, and allergies. Diagnosis: COPD EXACERBATION Rivera Score: 23,LOW OR NO RISK WOUND DESCRIPTIONS: Wound Number: 1 Location of the wound: right wrist Thickness: Full Size: 0.4cm x 0.6cm x <0.1cm Tunneling: none Undermining: none Sinus Tract: none Presence of Exudate: none Amount: None Color: Yellow, red, brown Odor: None Periwound Skin Appearance: Erythema Wound edges: approximated Pain (associated with wound): none at time of assessment How does patient state this happened? pt stated he had his IV removed on sunday the day of discharge and this started a couple days ago and he believe it is MRSA Surface the patient is resting on: Isoflex SKIN PREVENTION RECOMMENDATION: 1. Pressure redistribution support surface as appropriate 2. Elevate heels 3. Remove boots/TEDS every shift and reapply 4. Head of bed 30 degrees as tolerated 5. Assess nutrition and hydration 6. Manage moisture 7. Avoid the use of containment devices while in bed 8. Use absorptive products on surfaces limit layers of linens on bed 9. Turn and reposition every 1-2 hours in bed and every 1 hour in chair as tolerated 10. Weight shifts every 15 minutes while up in chair 11. Offloading with pillows or device to keep heels elevated off bed 12. Monitor skin at least every shift 13. Inspect under medical devices twice a day WOUND TREATMENT RECOMMENDATIONS: Cleanse right wrist with nss and apply bactroban bid and cover with dsd. Patient stated he will care for this area when he returns home and if it gets worse or opens up he stated he will just come back to the hospital this nurse made patient aware of the wound care center for the area to right wrist.
[2019-07-04 06:12] LABS: HEMATOCRIT 52.1 % (42.0-52.0); HEMOGLOBIN 16.9 g/dl (14.0-18.0); MEAN CELL VOLUME 91.6 fl (80.0-94.0); MEAN CORPUSCULAR HGB 29.7 pg (27.0-31.0); MEAN CORPUSCULAR HGB CONC 32.4 g/dl (33.0-37.0); MEAN PLATELET VOLUME 11.9 fl (9.6-12.3); PLATELET COUNT AUTOMATED 173 10*3/uL (130-400); RED BLOOD COUNT 5.69 10*6/uL (4.50-5.90); WHITE BLOOD COUNT 7.3 10*3/uL (4.8-10.8)
[2019-07-04 06:28] LABS: BUN 15 mg/dl (7-24); CHLORIDE 105 mmol/L (98-107); CREATININE 0.94 mg/dL (0.70-1.30); POTASSIUM 4.8 mmol/L (3.5-5.1); SODIUM 142 mmol/L (136-145)
[2019-07-04 06:40] LABS: ATYPICAL LYMPHS 7 % (0-0); PLATELET SUFFICIENCY NORMAL (NORMAL); TOTAL CELLS COUNTED 100 #CELLS
[2019-07-04] MEDS ORDERED: SEPTDS PO (06:53)
[2019-07-04 08:00] VITALS: BP 130/70
--- NOTE | 2019-07-04 08:30 | NUR ---
Discharge instructions reviewed with patient/family. Patient receptive and verbalizes understanding. Follow-up care arranged. Written instructions given to patient/family. VARUN SPEARS
== END 2019-07-04 08:30 | disposition home or self-care (01) | DRG 603 ==
LOC: ED 11:12 → 5E 13:34
PROVIDERS: Emergency Medicine; ADMIT Internal Medicine
DX: L08.9 Local infection of the skin and subcutaneous tissue, unspecified (principal); J96.10 Chronic respiratory failure, unspecified whether with hypoxia or hypercapnia; F11.20 Opioid dependence, uncomplicated; I50.9 Heart failure, unspecified; F41.9 Anxiety disorder, unspecified; I48.91 Unspecified atrial fibrillation; J44.9 Chronic obstructive pulmonary disease, unspecified; I11.0 Hypertensive heart disease with heart failure; G89.29 Other chronic pain; M54.5 Low back pain; F17.210 Nicotine dependence, cigarettes, uncomplicated; R73.9 Hyperglycemia, unspecified; T38.0X5A Adverse effect of glucocorticoids and synthetic analogues, initial encounter; Y92.89 Other specified places as the place of occurrence of the external cause; Z90.49 Acquired absence of other specified parts of digestive tract; Z87.01 Personal history of pneumonia (recurrent); Z83.3 Family history of diabetes mellitus; Z71.6 Tobacco abuse counseling

== ENCOUNTER 2019-08-31 16:07 | Emergency (ER) | payer OTHER ==
[~2019-08-31] VITALS: Wt 113.4 kg
[~2019-08-31 16:07] MED LIST changes: +SEPTDS PO
[2019-08-31 16:33] VITALS: BP 122/70
[2019-08-31 16:34] LABS: BASO % 0.4 % (0.0-1.0); EOS # 0.6 10*3/uL (0.0-0.4); EOS % 5.5 % (1.0-4.0); HEMOGLOBIN 16.9 g/dl (14.0-18.0); LYMPH # 4.6 10*3/uL (1.3-4.4); LYMPH % 45.8 % (27.0-41.0); MEAN CELL VOLUME 93.6 fl (80.0-94.0); MEAN CORPUSCULAR HGB 29.9 pg (27.0-31.0); MEAN CORPUSCULAR HGB CONC 31.9 g/dl (33.0-37.0); MEAN PLATELET VOLUME 11.9 fl (9.6-12.3); MONO # 0.7 10*3/uL (0.1-1.0); MONO % 7.2 % (3.0-9.0); NEUT # 4.1 10*3/uL (2.3-7.9); NEUT % 40.9 % (47.0-73.0); PLATELET COUNT AUTOMATED 144 10*3/uL (130-400); RED BLOOD COUNT 5.66 10*6/uL (4.50-5.90); RED CELL DISTRI WIDTH 13.7 % (0-14.5); WHITE BLOOD COUNT 9.9 10*3/uL (4.8-10.8)
[2019-08-31 16:45] LABS: ACT PARTIAL THROMBO TIME 23.7 SECONDS (20.0-32.1); INTERNATIONAL NORM RATIO 0.9 (2.0-3.5)
[2019-08-31 16:51] LABS: ALBUMIN 3.1 gm/dl (3.1-4.5); ALKALINE PHOSPHATASE 89 U/L (45-117); BUN 20 mg/dl (7-24); CHLORIDE 102 mmol/L (98-107); CREATININE 0.95 mg/dL (0.70-1.30); POTASSIUM 4.3 mmol/L (3.5-5.1); SGOT/AST 56 IU/L (3-35); SGPT/ALT 74 U/L (12-78); SODIUM 139 mmol/L (136-145); TOTAL PROTEIN 6.7 gm/dL (6.4-8.2)
[2019-08-31 16:52] LABS: TROPONIN I < 0.015 ng/ml (<0.045)
[2019-08-31 18:47] LABS: URINE AMPHETAMINES < 1000 (1000ng/ml); URINE BARBITURATES < 200 (200ng/ml); URINE BENZODIAZEPINES > 200 (200ng/ml); URINE CANNABINOIDS (THC) > 50 (50ng/ml); URINE COCAINE > 300 (300ng/ml); URINE METHADONE < 300 (300ng/ml); URINE OPIATES < 300 (300ng/ml)
[2019-08-31 18:48] LABS: BILIRUBIN NEGATIVE (NEGATIVE); BLOOD 1+ (NEGATIVE); CLARITY CLEAR (CLEAR); COLOR YELLOW (YELLOW); GLUCOSE NEGATIVE (NEGATIVE); KETONE NEGATIVE (NEGATIVE); LEUKO ESTERASE NEGATIVE (NEGATIVE); NITRITE NEGATIVE (NEGATIVE); RBC 0-2 rbc/hpf (0-2); SPECIFIC GRAVITY 1.025 (1.005-1.030); UROBILINOGEN 0.2 E.U./dl (0.2-1.0)
[2019-08-31 18:49] LABS: BACTERIA TRACE; EPITHELIAL CELLS 0-2; WBC 0-2 wbc/hpf (0-5)
[2019-08-31 18:50] LABS: URINE PHENCYCLIDINE < 25 (25ng/ml)
== END 2019-08-31 18:45 | disposition home or self-care (01) ==
LOC: ED 16:07
PROVIDERS: Emergency Medicine
DX: R42 Dizziness and giddiness (principal); F19.10 Other psychoactive substance abuse, uncomplicated; F41.9 Anxiety disorder, unspecified; I48.91 Unspecified atrial fibrillation; I10 Essential (primary) hypertension; J44.9 Chronic obstructive pulmonary disease, unspecified; F17.200 Nicotine dependence, unspecified, uncomplicated; Z79.899 Other long term (current) drug therapy

== ENCOUNTER 2019-12-03 16:00 | Inpatient (IN) | payer OTHER ==
[~2019-12-03] VITALS: Ht 187.9 cm; Wt 139.5 kg
[2019-12-03 16:07] VITALS: BP 117/75
[2019-12-03 17:18] LABS: BASO % 0.5 % (0.0-1.0); EOS # 0.3 10*3/uL (0.0-0.4); HEMATOCRIT 53.4 % (42.0-52.0); LYMPH # 3.9 10*3/uL (1.3-4.4); LYMPH % 46.9 % (27.0-41.0); MEAN CELL VOLUME 92.7 fl (80.0-94.0); MEAN CORPUSCULAR HGB 29.5 pg (27.0-31.0); MEAN CORPUSCULAR HGB CONC 31.8 g/dl (33.0-37.0); MEAN PLATELET VOLUME 11.2 fl (9.6-12.3); MONO # 0.7 10*3/uL (0.1-1.0); MONO % 8.3 % (3.0-9.0); NEUT # 3.4 10*3/uL (2.3-7.9); NEUT % 41.2 % (47.0-73.0); PLATELET COUNT AUTOMATED 151 10*3/uL (130-400); RED BLOOD COUNT 5.76 10*6/uL (4.50-5.90); RED CELL DISTRI WIDTH 14.3 % (0-14.5); WHITE BLOOD COUNT 8.3 10*3/uL (4.8-10.8)
[2019-12-03 17:30] LABS: ACT PARTIAL THROMBO TIME 29.2 SECONDS (20.0-32.1)
[2019-12-03 17:41] LABS: ALKALINE PHOSPHATASE 116 U/L (45-117); BUN 12 mg/dl (7-24); CHLORIDE 102 mmol/L (98-107); LIPASE 57 U/L (73-393); POTASSIUM 4.3 mmol/L (3.5-5.1); SGOT/AST 129 IU/L (3-35); SGPT/ALT 175 U/L (12-78); SODIUM 140 mmol/L (136-145); TOTAL PROTEIN 7.1 gm/dL (6.4-8.2)
[2019-12-03 17:42] LABS: TROPONIN I < 0.015 ng/ml (<0.045)
[2019-12-03 19:03] VITALS: BP 118/80
[2019-12-03 19:58] VITALS: BP 116/78
[2019-12-03 20:15] VITALS: BP 150/82
--- NOTE | 2019-12-03 20:15 | NUR ---
A 68, admitted to , under the services of QUITA Lyons DO with a diagnosis of SUSPECTED COVID, HX COPD. Chief complaint is DRY MOUTH FROM USING AN ANTIBIOTIC FOR EAR ACHE. DENIED FEVER. Patient arrived via wheel chair from ER. Monitor applied. Initial assessment completed. Vital signs taken and recorded. QUITA LYONS DO notified of admission to the unit. Orders received. See assessment for past medical history, medications and allergies. Patient and/or family oriented to unit. [facility] visitation policy reviewed. Clothing/patient valuable form completed. OBI BENAVIDES
--- NOTE | 2019-12-03 21:16 | NUR ---
BEDSIDE GLUCOSE MONITORED PER COVID CARE.
[2019-12-03 21:44] LABS: ABG BASE EXCESS 7.2 mmol/L (-2.0-2.0); ARTERIAL BLOOD GAS PH 7.433 (7.35-7.45)
--- NOTE | 2019-12-03 21:46 | NUR ---
NOTIFIED DR. MANCILLA [facility] DONE AND THAT BLOOD GASES WERE JUST OBTAINED AND SENT.
--- NOTE | 2019-12-03 22:16 | NUR ---
CALLED DR. MANJARREZ AND NOTIFIED HIM OF BLOOD GAS RESULTS AND PT. CONDITION AND VOIDED 1200CC SINCE GIVING IV LASIX, VS AND ON O2. NO NEW ORDERS AT THIS TIME.
--- NOTE | 2019-12-03 22:42 | NUR ---
PT. REFUSED NICODERM PATCH AT THIS TIME.
--- NOTE | 2019-12-03 23:15 | NUR ---
CALLED DR. MANCILLA AND NOTIFIED HIM OF VS, ELEVATION HR, BP DROP, BODY ACHES AND HANDS FEEL LIKE THEY GOT HIT BY HAMMER AND ALSO URINE OUTPUT SINCE ADMISSION TO NOW. TYLENOL ORDER WAS RECEIVED
--- NOTE | 2019-12-03 23:23 | NUR ---
TYLENOL GIVEN PER ORDER FOR BODY ACHES PER PT. SEE MAR.
[2019-12-04] VITALS: BP 125/56
--- NOTE | 2019-12-04 | NUR ---
PT. VOIDED ANOTHER 400CC CLEAR URINE. PT. LAYING DOWN.
--- NOTE | 2019-12-04 00:22 | NUR ---
PT. TRYING TO REST. TYLENOL HELPING A LITTLE AT THIS TIME.
--- NOTE | 2019-12-04 01:52 | NUR ---
24 HR chart check completed.
[2019-12-04 06:00] VITALS: BP 123/70
--- NOTE | 2019-12-04 06:05 | NUR ---
PT. AWAKEND MOIST COUGH NOTED. PT. DID GET SOME SLEEP. BLOOD DRAW DONE AND SENT FOR D-DIMER,A1C,LIPID,PHOS,MAG,BMP,CBC AND PATIENT TOLERATED WELL.
[2019-12-04 06:12] LABS: BASO # 0.1 10*3/uL (0.0-0.1); BASO % 0.4 % (0.0-1.0); EOS # 0.1 10*3/uL (0.0-0.4); EOS % 0.8 % (1.0-4.0); HEMATOCRIT 55.3 % (42.0-52.0); LYMPH # 3.9 10*3/uL (1.3-4.4); LYMPH % 23.7 % (27.0-41.0); MEAN CELL VOLUME 90.1 fl (80.0-94.0); MEAN CORPUSCULAR HGB 29.8 pg (27.0-31.0); MEAN CORPUSCULAR HGB CONC 33.1 g/dl (33.0-37.0); MEAN PLATELET VOLUME 11.2 fl (9.6-12.3); MONO # 1.1 10*3/uL (0.1-1.0); MONO % 6.4 % (3.0-9.0); NEUT # 11.2 10*3/uL (2.3-7.9); NEUT % 68.4 % (47.0-73.0); PLATELET COUNT AUTOMATED 175 10*3/uL (130-400); RED BLOOD COUNT 6.14 10*6/uL (4.50-5.90); RED CELL DISTRI WIDTH 14.4 % (0-14.5); WHITE BLOOD COUNT 16.4 10*3/uL (4.8-10.8)
[2019-12-04 06:33] LABS: BUN 13 mg/dl (7-24); CHLORIDE 99 mmol/L (98-107); CHOLESTEROL 186 mg/dL (<200); HDL CHOLESTEROL 80 mg/dl (40-60); LDL CHOLESTEROL 92 mg/dL (9-159); SODIUM 136 mmol/L (136-145); TRIGLYCERIDES 72 mg/dl (<150); VLDL CHOLESTEROL 14 mg/dL (6-40)
--- NOTE | 2019-12-04 09:30 | NUR ---
Cloth Spreader in to talk to patient. Patient states lives at home alone with friends checking in on him. There are 0 steps in the home. Physician: Dr. Miryam Rendon [facility] Home health services: none Patient's level of ADLs: INDEPENDENT Patient has working utilities: yes DME: O2 @ 2L nc prn, portable O2 tanks, nebulizer, O2 supplier HCS, c-pap, shower chair Follow-up physician's appointment after d/c: will be made by the hospitalist nurse director upon discharge Does patient want to access PORTAL?: no Discharge plan discussed with patient. He lives at home alone with his friends checking in on him. He is independent in his ADLs and ambulation. Discussed home health care services and he denies any home needs at this time. He does have a cleaning lady. When medically stable he will be discharged to home. He states a friend will provide transportation on discharge. MIKEY FARAH
[2019-12-04 12:00] VITALS: BP 126/81
--- NOTE | 2019-12-04 17:00 | NUR ---
IN TO SEE PT AT THIS TIME. NO S/S OF DISTRESS NOTED. RESPS ARE EASY AND NONLABORED ON 2.5L. ATTEMPTED TO ADMINISTER PT'S SCHEDULED ANTIBIOTICS BUT PER PT HE WOULD LIKE TO WAIT UNTIL HE EATS DINNER. WILL CONTINUE TO MONITOR.
[2019-12-04 20:00] VITALS: BP 107/66
--- NOTE | 2019-12-04 20:00 | NUR ---
IN TO ASSESS PATIENT. PATIENT RESTING IN BED. NO DISTRESS NOTED. 3L NASAL CANNULA INTACT. DENIES SOB AT REST. PATIENT STATES HE FEELS MUCH BETTER AFTER GETTING ALL THE WATER TAKEN OFF OF HIM. PATIENT HAS TRACE EDEMA TO THE LOWER EXTREMITIES. PATIENT HAS NO COMPLAINTS AT THIS TIME. WILL BE MOVING PATIENT TO NEGATIVE AIRFLOW ROOM.
--- NOTE | 2019-12-04 20:30 | NUR ---
PATIENT TRANSFERRED TO NEGATIVE AIRFLOW ROOM.
--- NOTE | 2019-12-04 22:12 | NUR ---
PRN TYLENOL GIVEN FOR PT COMPLAINTS OF MUSCLE ACHES. CALL LIGHT WITHIN REACH, WILL MONITOR
--- NOTE | 2019-12-04 23:12 | NUR ---
PRN TYLENOL APPEARS EFFECTIVE, PT SLEEPING
[2019-12-05] VITALS: BP 118/80
--- NOTE | 2019-12-05 | NUR ---
VITAL SIGNS OBTAINED AT THIS TIME. WITHIN NORMAL LIMITS. PATIENT HAS NO COMPLAINTS. MAINTAINS ON 3L NC. PATIENT REQUESTING ALPA CRACKERS AND PEANUT BUTTER. DENIES ANY OTHER NEEDS. CALL LIGHT WITHIN REACH, WILL MONITOR
--- NOTE | 2019-12-05 00:22 | NUR ---
24 HR chart check completed.
--- NOTE | 2019-12-05 02:30 | NUR ---
PATIENT SLEEPING, NO DISTRESS NOTED. BREATHING IS EASY AND REGULAR ON 3L. CALL LIGHT WITHIN REACH, WILL MONITOR
--- NOTE | 2019-12-05 05:58 | NUR ---
BLOOD DRAWN AT THIS TIME. PATIENT HAS NO COMPLAINTS AT THIS TIME. SPUTUM CUP AT BEDSIDE, ENCOURAGED PATIENT TO SPIT SPUTUM INTO CUP WHENEVER HE CAN. CALL LIGHT WITHIN REACH, WILL MONITOR
[2019-12-05 06:27] LABS: BASO % 0.1 % (0.0-1.0); HEMATOCRIT 54.8 % (42.0-52.0); LYMPH # 2.2 10*3/uL (1.3-4.4); LYMPH % 18.9 % (27.0-41.0); MEAN CELL VOLUME 89.3 fl (80.0-94.0); MEAN CORPUSCULAR HGB 28.8 pg (27.0-31.0); MEAN CORPUSCULAR HGB CONC 32.3 g/dl (33.0-37.0); MEAN PLATELET VOLUME 11.3 fl (9.6-12.3); MONO # 0.1 10*3/uL (0.1-1.0); MONO % 0.9 % (3.0-9.0); NEUT # 9.4 10*3/uL (2.3-7.9); NEUT % 79.8 % (47.0-73.0); PLATELET COUNT AUTOMATED 163 10*3/uL (130-400); RED BLOOD COUNT 6.14 10*6/uL (4.50-5.90); RED CELL DISTRI WIDTH 13.7 % (0-14.5); WHITE BLOOD COUNT 11.7 10*3/uL (4.8-10.8)
--- NOTE | 2019-12-05 06:31 | NUR ---
SPOKE WITH DR. MANCILLA, PATIENT ASKING ABOUT BREATHING TREATMENTS. SPOKE WITH DR. MANCILLA. HE STATED TO WAIT UNTIL DR. MANJARREZ ROUNDS IN THE AM TO SEE IF HE WOULD LIKE TO SWITCH HIM FROM THE INHALER TO BREATHING TREATMENTS
[2019-12-05 06:45] LABS: ALBUMIN 2.7 gm/dl (3.1-4.5); ALKALINE PHOSPHATASE 108 U/L (45-117); BUN 21 mg/dl (7-24); CHLORIDE 101 mmol/L (98-107); CREATININE 0.66 mg/dL (0.70-1.30); POTASSIUM 4.1 mmol/L (3.5-5.1); SGOT/AST 64 IU/L (3-35); SGPT/ALT 120 U/L (12-78); SODIUM 137 mmol/L (136-145)
[2019-12-05 08:14] VITALS: BP 126/80
--- NOTE | 2019-12-05 08:30 | NUR ---
CM spoke to patient via phone regarding discharge planing. Discussed home health care services and he denies any home needs at this time. When medically stable he will be discharged to home.
--- NOTE | 2019-12-05 10:58 | NUR ---
DR ESCAMILLA CALLED AND MADE AWARE OF NEGATIVE COVID TEST.
[2019-12-05 12:00] VITALS: BP 121/74
--- NOTE | 2019-12-05 15:01 | NUR ---
PATIENT C/O GENERAL ACHES AND PAINS. TYLENOL ADMINISTERED PRESCRIBED. WILL MONITOR FOR EFFECTIVENESS.
[2019-12-05 16:00] VITALS: BP 116/58
--- NOTE | 2019-12-05 16:01 | NUR ---
PATIENT STATES THAT TYLENOL WAS EFFECTIVE.
--- NOTE | 2019-12-05 16:48 | NUR ---
patient evaluated for the use of home oxygen. during rest on room air patient vitals: heart rate:75 spo2:93%. during the ambulation he was fine for the first minute and rapid desaturate to 85%. with 2lnc he was able to get 90%. with 3 l nasal cannula he was able to get 94%. patient does qualify for home oxygen.
[2019-12-05 20:00] VITALS: BP 90/50
--- NOTE | 2019-12-05 20:00 | NUR ---
Patient resting quietly with no c/o discomfort. Respirations easy and regular. Vital signs stable. No overt distress. SARAHY ALVA
[2019-12-05 22:24] VITALS: BP 100/70
[2019-12-06] VITALS: BP 90/50
--- NOTE | 2019-12-06 00:27 | NUR ---
24 HR chart check completed.
[2019-12-06 02:15] VITALS: BP 100/60
--- NOTE | 2019-12-06 04:00 | NUR ---
Patient resting quietly with no c/o discomfort. Respirations easy and regular. Vital signs stable. No overt distress. SARAHY ALVA
[2019-12-06 04:19] LABS: BASO % 0.1 % (0.0-1.0); HEMATOCRIT 53.5 % (42.0-52.0); LYMPH # 2.2 10*3/uL (1.3-4.4); LYMPH % 12.2 % (27.0-41.0); MEAN CELL VOLUME 90.8 fl (80.0-94.0); MEAN CORPUSCULAR HGB 29.4 pg (27.0-31.0); MEAN CORPUSCULAR HGB CONC 32.3 g/dl (33.0-37.0); MEAN PLATELET VOLUME 11.3 fl (9.6-12.3); MONO # 0.3 10*3/uL (0.1-1.0); MONO % 1.5 % (3.0-9.0); NEUT # 15.5 10*3/uL (2.3-7.9); NEUT % 85.8 % (47.0-73.0); PLATELET COUNT AUTOMATED 158 10*3/uL (130-400); RED BLOOD COUNT 5.89 10*6/uL (4.50-5.90); WHITE BLOOD COUNT 18.1 10*3/uL (4.8-10.8)
[2019-12-06 04:34] LABS: ALBUMIN 2.6 gm/dl (3.1-4.5); ALKALINE PHOSPHATASE 89 U/L (45-117); BUN 27 mg/dl (7-24); CHLORIDE 103 mmol/L (98-107); CREATININE 0.73 mg/dL (0.70-1.30); POTASSIUM 4.3 mmol/L (3.5-5.1); SGOT/AST 34 IU/L (3-35); SGPT/ALT 93 U/L (12-78); SODIUM 139 mmol/L (136-145); TOTAL PROTEIN 6.6 gm/dL (6.4-8.2)
--- NOTE | 2019-12-06 07:30 | NUR ---
PT SITTING UP IN BED. VOICES NO CONCERNS AT THIS TIME. RESPS EASY AND NON LABORED. NO S/S OF DISTRESS NOTED. WHITE BOARD UPDATED. POC DISCUSSED W PT. 3L NC INTACT. LUNGS CLEAR/DIM. BP RUNNING LOW. WILL CONTINUE TO MONITOR. ENCOURAGING PO FLUID INTAKE.
[2019-12-06 08:00] VITALS: BP 98/66
[2019-12-06 09:35] VITALS: BP 100/70
--- NOTE | 2019-12-06 09:36 | NUR ---
LISINOPRIL AND LASIX NOT GIVEN. PTS BLOOD PRESSURE 100/70 MANUALLY. ENCOURAGING FLUID INTAKE.
[2019-12-06] MEDS ORDERED: PREDNISONE10 MG PO (10:45)
[2019-12-06] MEDS ORDERED: DOXYCYCLINE100 M3 PO (10:45)
--- NOTE | 2019-12-06 11:04 | NUR ---
Discharge instructions reviewed with patient/family. Patient receptive and verbalizes understanding. Follow-up care arranged. Written instructions given to patient/family. JESSIE ZAVALETA The Discharge Plan/Instructions have been completed. Hep Lock discontinued. Site asymptomatic. Pressure applied. Sterile dressing applied. JESSIE ZAVALETA
== END 2019-12-06 11:04 | disposition home or self-care (01) | DRG 871 ==
LOC: ED 16:00 → 4E 18:22 → EDHOLD 18:22 → 4E 18:45
PROVIDERS: Emergency Medicine; Internal Medicine; Internal Medicine Critical Care Medicine; Student in an Organized Health Care Education/Training Program; ADMIT Family Medicine
DX: A41.9 Sepsis, unspecified organism (principal); J18.9 Pneumonia, unspecified organism; J96.21 Acute and chronic respiratory failure with hypoxia; E87.3 Alkalosis; E44.0 Moderate protein-calorie malnutrition; J44.0 Chronic obstructive pulmonary disease with (acute) lower respiratory infection; J44.1 Chronic obstructive pulmonary disease with (acute) exacerbation; F11.20 Opioid dependence, uncomplicated; J96.12 Chronic respiratory failure with hypercapnia; Z68.41 Body mass index [BMI] 40.0-44.9, adult; Z20.828 Contact with and (suspected) exposure to other viral communicable diseases; I50.9 Heart failure, unspecified; R74.0 Nonspecific elevation of levels of transaminase and lactic acid dehydrogenase [LDH]; R65.20 Severe sepsis without septic shock; K63.9 Disease of intestine, unspecified; F41.9 Anxiety disorder, unspecified; I11.0 Hypertensive heart disease with heart failure; R73.9 Hyperglycemia, unspecified; J20.9 Acute bronchitis, unspecified; D75.1 Secondary polycythemia; Z96.659 Presence of unspecified artificial knee joint; M19.90 Unspecified osteoarthritis, unspecified site; F17.210 Nicotine dependence, cigarettes, uncomplicated; E66.01 Morbid (severe) obesity due to excess calories; Z99.81 Dependence on supplemental oxygen; Z90.49 Acquired absence of other specified parts of digestive tract; Z83.3 Family history of diabetes mellitus; Z79.899 Other long term (current) drug therapy

== ENCOUNTER 2020-02-05 11:30 | Emergency (ER) | payer OTHER ==
[~2020-02-05] VITALS: Ht 241.3 cm; Wt 127.0 kg
[~2020-02-05 11:30] MED LIST changes: +DOXYCYCLINE100 M3 PO
[2020-02-05 11:34] VITALS: BP 152/79
[2020-02-05] MEDS ORDERED: VALTREX1000 MG PO (12:08)
[2020-02-05] MEDS ORDERED: PROVENTIL HFA6.7 GM INH (12:08)
== END 2020-02-05 12:43 | disposition home or self-care (01) ==
LOC: ED 11:30
DX: B02.9 Zoster without complications (principal); J44.9 Chronic obstructive pulmonary disease, unspecified; I50.9 Heart failure, unspecified; I11.0 Hypertensive heart disease with heart failure; F17.200 Nicotine dependence, unspecified, uncomplicated; Z79.899 Other long term (current) drug therapy

== ENCOUNTER 2020-03-29 00:09 | Inpatient (IN) | payer OTHER ==
[~2020-03-29] VITALS: Ht 188 cm; Wt 146.1 kg
[2020-03-29] VITALS (8 sets, daily range): BP systolic 104–148; BP diastolic 57–95
[~2020-03-29 00:09] MED LIST changes: +PROVENTIL HFA6.7 GM INH; +VALTREX1000 MG PO
[2020-03-29 00:46] LABS: BASO % 0.2 % (0.0-1.0); EOS # 0.1 10*3/uL (0.0-0.4); EOS % 1.1 % (1.0-4.0); HEMATOCRIT 52.9 % (42.0-52.0); LYMPH # 3.6 10*3/uL (1.3-4.4); LYMPH % 36.9 % (27.0-41.0); MEAN CELL VOLUME 91.8 fl (80.0-94.0); MEAN CORPUSCULAR HGB 29.5 pg (27.0-31.0); MEAN CORPUSCULAR HGB CONC 32.1 g/dl (33.0-37.0); MEAN PLATELET VOLUME 11.4 fl (9.6-12.3); MONO # 0.7 10*3/uL (0.1-1.0); MONO % 7.3 % (3.0-9.0); NEUT # 5.2 10*3/uL (2.3-7.9); NEUT % 54.2 % (47.0-73.0); PLATELET COUNT AUTOMATED 148 10*3/uL (130-400); RED BLOOD COUNT 5.76 10*6/uL (4.50-5.90); RED CELL DISTRI WIDTH 13.7 % (0-14.5); WHITE BLOOD COUNT 9.7 10*3/uL (4.8-10.8)
[2020-03-29 01:06] LABS: ALBUMIN 3.2 gm/dl (3.1-4.5); ALKALINE PHOSPHATASE 112 U/L (45-117); BUN 13 mg/dl (7-24); CHLORIDE 105 mmol/L (98-107); CREATININE 0.66 mg/dL (0.70-1.30); POTASSIUM 4.2 mmol/L (3.5-5.1); SGOT/AST 117 IU/L (3-35); SGPT/ALT 158 U/L (12-78); SODIUM 139 mmol/L (136-145); TOTAL PROTEIN 7.3 gm/dL (6.4-8.2)
[2020-03-29 01:08] LABS: TROPONIN I < 0.015 ng/ml (<0.045)
[2020-03-29] MEDS ORDERED: VIAGRA100 MG PO (04:02)
[2020-03-29 12:21] LABS: ABG BASE EXCESS 2.2 mmol/L (-2.0-2.0); ARTERIAL BLOOD GAS PH 7.38 (7.35-7.45)
[2020-03-30] VITALS: BP 104/60
[2020-03-30 08:00] VITALS: BP 119/61
[2020-03-30 12:00] VITALS: BP 103/59
[2020-03-30 16:16] VITALS: BP 104/60
[2020-03-30 20:00] VITALS: BP 114/98
[2020-03-31] VITALS: BP 100/70
[2020-03-31 08:00] VITALS: BP 92/60
[2020-03-31] MEDS ORDERED: Ipratropium Brom3 ML NEB (10:22)
[2020-03-31] MEDS ORDERED: PROVENTIL HFA6.7 GM INH (10:22)
[2020-03-31] MEDS ORDERED: PULMICORT0.5 MG/21 NEB (10:24)
[2020-03-31] MEDS ORDERED: MEDROL DOSEPAK4 MG PO (10:29)
== END 2020-03-31 10:40 | disposition home or self-care (01) | DRG 189 ==
LOC: ED 00:09 → 4E 02:35 → EDHOLD 02:35 → 4E 02:43
PROVIDERS: Emergency Medicine; Internal Medicine Critical Care Medicine; ADMIT Internal Medicine; ATTEND Internal Medicine
DX: J96.20 Acute and chronic respiratory failure, unspecified whether with hypoxia or hypercapnia (principal); J44.1 Chronic obstructive pulmonary disease with (acute) exacerbation; Z68.41 Body mass index [BMI] 40.0-44.9, adult; E87.3 Alkalosis; J44.0 Chronic obstructive pulmonary disease with (acute) lower respiratory infection; G47.30 Sleep apnea, unspecified; R62.7 Adult failure to thrive; G89.29 Other chronic pain; M54.5 Low back pain; I71.4 Abdominal aortic aneurysm, without rupture; M19.90 Unspecified osteoarthritis, unspecified site; F17.210 Nicotine dependence, cigarettes, uncomplicated; D75.1 Secondary polycythemia; R94.5 Abnormal results of liver function studies; J20.9 Acute bronchitis, unspecified; Z96.652 Presence of left artificial knee joint; F41.9 Anxiety disorder, unspecified; E66.01 Morbid (severe) obesity due to excess calories; I10 Essential (primary) hypertension; Z90.49 Acquired absence of other specified parts of digestive tract; Z83.3 Family history of diabetes mellitus

== ENCOUNTER 2020-04-05 15:35 | Inpatient (IN) | payer OTHER ==
[~2020-04-05] VITALS: Ht 188 cm; Wt 147.9 kg
[~2020-04-05 15:35] MED LIST changes: +PULMICORT0.5 MG/21 NEB; +VIAGRA100 MG PO
--- NOTE | 2020-04-05 15:48 | NUR ---
PT PLACED ON BIPAP.
--- NOTE | 2020-04-05 15:58 | NUR ---
PT TOLERATING BIPAP. PT APPEARS LESS ANXIOUS. PULSE OX IS 99%
[2020-04-05 16:14] LABS: HEMATOCRIT 55.7 % (42.0-52.0); MEAN CELL VOLUME 93.8 fl (80.0-94.0); MEAN PLATELET VOLUME 11.1 fl (9.6-12.3); PLATELET COUNT AUTOMATED 176 10*3/uL (130-400); RED BLOOD COUNT 5.94 10*6/uL (4.50-5.90); RED CELL DISTRI WIDTH 13.9 % (0-14.5); WHITE BLOOD COUNT 18.1 10*3/uL (4.8-10.8)
[2020-04-05 16:15] VITALS: BP 132/86
[2020-04-05 16:26] LABS: BASOPHILS 1 % (0-1); PLATELET SUFFICIENCY NORMAL (NORMAL); TOTAL CELLS COUNTED 100 #CELLS
[2020-04-05 16:32] LABS: ABG BASE EXCESS 3.2 mmol/L (-2.0-2.0); ARTERIAL BLOOD GAS PH 7.329 (7.35-7.45)
--- NOTE | 2020-04-05 16:39 | NUR ---
PT FINALLY RESTING BACK IN BED. HE APPEARS MORE COMFORTABLE. TOLERATING BIPAP WELL AT THIS TIME. SETTINGS 18/10 40% BACK UP OF 12.
[2020-04-05 16:40] VITALS: BP 126/79
[2020-04-05 17:05] LABS: ALBUMIN 3.2 gm/dl (3.1-4.5); ALKALINE PHOSPHATASE 118 U/L (45-117); CHLORIDE 106 mmol/L (98-107); CREATININE 0.78 mg/dL (0.70-1.30); POTASSIUM 4.2 mmol/L (3.5-5.1); SGOT/AST 61 IU/L (3-35); SGPT/ALT 97 U/L (12-78); SODIUM 140 mmol/L (136-145); TOTAL PROTEIN 7.3 gm/dL (6.4-8.2)
[2020-04-05 17:35] LABS: BUN 20 mg/dl (7-24); LIPASE 70 U/L (73-393)
[2020-04-05 17:37] LABS: TROPONIN I < 0.015 ng/ml (<0.045)
[2020-04-05 18:28] VITALS: BP 130/83
--- NOTE | 2020-04-05 18:29 | NUR ---
PT IS RESTING IN BED. VSS STABLE AT THIS TIME. PT REMAINS ON BIPAP.
[2020-04-05 20:30] VITALS: BP 164/90
--- NOTE | 2020-04-05 20:30 | NUR ---
A 69, admitted to ICCU, under the services of Dr. CR OSORIO,MORA Marques with a diagnosis of SEPSIS/ PNEUMONIA. Chief complaint is SHORTNESS OF BREATH. Patient arrived via stretcher from ER. Monitor applied. Initial assessment completed. Vital signs taken and recorded. DR. CR OSORIO,MORA Marques notified of admission to the unit. Orders received. See assessment for past medical history, medications and allergies. Patient and/or family oriented to unit. [facility] ICCU visitation policy reviewed. Clothing/patient valuable form completed. FAWAD NICHOLE
--- NOTE | 2020-04-05 20:50 | NUR ---
DR MANJARREZ NOTIFIED OF CONSULT. ORDERS RECEIVED.
--- NOTE | 2020-04-05 21:43 | NUR ---
PT DECLINES WEARING BIPAP AT THIS TIME. LAYING IN BED, WATCHING FOOTBALL ON TV. PT IS WORKING ON PRODUCING A SPUTUM SPECIMEN IN PROVIDED SPECIMEN CONTAINER.
[2020-04-05 21:47] LABS: ABG BASE EXCESS 3.5 mmol/L (-2.0-2.0); ARTERIAL BLOOD GAS PH 7.328 (7.35-7.45)
--- NOTE | 2020-04-05 21:55 | NUR ---
DR MANJARREZ NOTIFIED OF ABG RESULTS. ORDERS RECEIVED.
--- NOTE | 2020-04-05 22:14 | NUR ---
SPUTUM CULTURE SENT ORDERED.
--- NOTE | 2020-04-05 23:15 | NUR ---
Pt placed on BiPap for the night. Alarms on and audible. SPO2 96%
--- NOTE | 2020-04-05 23:15 | NUR ---
PT JOKING AND LAUGHING WITH STAFF. NO ACUTE DISTRESS. ON BIPAP ORDERED 18/04 BUT FIO2 TITRATED TO 35% PULSE OX 100%.
[2020-04-06] VITALS: BP 120/80
--- NOTE | 2020-04-06 02:01 | NUR ---
PT LAYING ON RT SIDE SLEEPING. TAKING A BREAK FROM BIPAP ON NC 3.5L/MIN. AWAKENS EASILY TO VERBAL STIMULI.
--- NOTE | 2020-04-06 02:20 | NUR ---
PT BACK ON BIPAP.
[2020-04-06 04:00] VITALS: BP 123/67
--- NOTE | 2020-04-06 05:36 | NUR ---
PT OFF OF BIPAP PER PT REQUEST. ON NC 3L/MIN AT PRESENT.
[2020-04-06 08:00] VITALS: BP 123/71
--- NOTE | 2020-04-06 09:00 | NUR ---
Conference Director in to talk to patient. Patient states lives at home alone in [address] apartments with family/friends checking in on him. There are 0 steps in the home. Physician: Dr. Miryam Rendon [facility] Home health services: none Patient's level of ADLs: INDEPENDENT Patient has working utilities: yes DME: O2 @ 3L nc HS, portable O2 tanks, nebulizer, c-pap, O2 supplier HCS, shower chair Follow-up physician's appointment after d/c: he prefers to make her own follow up appt upon discharge Does patient want to access PORTAL?: no Discharge plan discussed with patient. He lives at home alone in [address] apartments with his family/friends checking in on him. He is independent in his ADLs and ambulation. Discussed home health care services and he declines. He has a cleaning lady that comes once a week. CM will continue to follow for any discharge planning needs. He states his respiratory problems happen because he runs out of his puffers and then doesn't have anything to use. He states he does use them more than he should but when he gets short of breath it helps. "There will be times I am sitting and playing cards for 2-3 hours and then when I get up to leave I can't breathe so I take 4-5 hits off my puffer." He has 2-3 different kinds of puffers. He is upset that when he runs out of his puffers, the insurance will not pay for more because it is too early to have them filled. Explained he should be using his prescriptions as instructed and if he is having difficulty breathing then he needs to reach out to his physician's office at that time. He verbalized an understanding. He states he was supposed to have an appt with [employer] today to see about assistance with his rent. His rent is past due and he was served an eviction notice. He states management in the office changed and they have not been taking out his monthly rent of $200. He states he is $746 behind. He did speak to the office staff at [facility] and was told to follow up with [employer] for assistance. When asked about what happened to the money that was supposed to go to his rent he stated "if there is extra money in my account then I use it for whatever assuming the rent was taken out." He does a [facility] Conference Director by the name of Micaela Munguiad who he does speak to frequently. tie up worker and Dr. Carnes notified. When medically stable he will be discharged to home. He states a friend will provide transportation on discharge. MIKEY FARAH
--- NOTE | 2020-04-06 09:48 | NUR ---
MORTGAGE MANAGER LEFT MESSAGE FOR [facility] GEOGRAPHY TEACHER CELINE FOR RETURN CALL.
--- NOTE | 2020-04-06 09:51 | NUR ---
MUSIC WRITER LEFT MESSAGE FOR [employer] ASKING FOR A RETURN CALL.
--- NOTE | 2020-04-06 09:59 | NUR ---
ALY RECEIVED CALL BACK FROM [facility] PHYSICIAN/INTERNIST CELINE WASHINGTON. SHE STATED SHE JUST SPOKE WITH THIS PATIENT YESTERDAY AND HE INFORMED HER HE WAS RETURN TO THE ER. [employer] ASKED HER ABOUT THE EVICTION NOTICED THIS PATIENT STATED HE RECEIVED FOR PRODUCT MGR MIKEY. CELINE STATED SHE WAS NOT AWARE. [employer] INTERNS[employer] PROVIDED A CLINICAL UPDATE FOR THIS PATIENT. ARCHITECTURE INTERNSHIP WILL KEEP HER INFORMED ABOUT THIS SITUATION. AWAITING TO HEAR FROM [employer].
[2020-04-06 10:37] LABS: HEMATOCRIT 51.5 % (42.0-52.0); LYMPH # 1.3 10*3/uL (1.3-4.4); LYMPH % 14.3 % (27.0-41.0); MEAN CELL VOLUME 94.8 fl (80.0-94.0); MEAN CORPUSCULAR HGB 29.8 pg (27.0-31.0); MEAN CORPUSCULAR HGB CONC 31.5 g/dl (33.0-37.0); MEAN PLATELET VOLUME 11.1 fl (9.6-12.3); MONO # 0.4 10*3/uL (0.1-1.0); MONO % 4.2 % (3.0-9.0); NEUT # 7.1 10*3/uL (2.3-7.9); NEUT % 80.8 % (47.0-73.0); PLATELET COUNT AUTOMATED 150 10*3/uL (130-400); RED BLOOD COUNT 5.43 10*6/uL (4.50-5.90); WHITE BLOOD COUNT 8.8 10*3/uL (4.8-10.8)
[2020-04-06 10:50] LABS: ALBUMIN 2.6 gm/dl (3.1-4.5); ALKALINE PHOSPHATASE 94 U/L (45-117); BUN 18 mg/dl (7-24); CHLORIDE 102 mmol/L (98-107); CREATININE 0.67 mg/dL (0.70-1.30); POTASSIUM 3.9 mmol/L (3.5-5.1); SGOT/AST 43 IU/L (3-35); SGPT/ALT 85 U/L (12-78); SODIUM 137 mmol/L (136-145); TOTAL PROTEIN 6.2 gm/dL (6.4-8.2)
[2020-04-06 11:26] LABS: ABG BASE EXCESS 5.1 mmol/L (-2.0-2.0); ARTERIAL BLOOD GAS PH 7.34 (7.35-7.45)
[2020-04-06 12:00] VITALS: BP 112/63
--- NOTE | 2020-04-06 12:20 | NUR ---
DISASTER RECOVERY COORDINATOR SPOKE WITH THE PATIENT AT BEDSIDE. DISASTER RECOVERY COORDINATOR EXPLAINED THIS DISASTER RECOVERY COORDINATOR REACHED OUT TO [employer] AND THAT HE WILL STILL HAVE HIS SPOT FOR FUNDING FOR ASSISTANCE WITH HIS RENT/EVICTION NOTICED. DISASTER RECOVERY COORDINATOR EXPLAINED THIS DISASTER RECOVERY COORDINATOR SPOKE WITH ISAAC. PATIENT UNDERSTOOD. DISASTER RECOVERY COORDINATOR TO FOLLOW FOR ANY FUTURE NEEDS.
[2020-04-06 16:00] VITALS: BP 101/45
--- NOTE | 2020-04-06 16:35 | NUR ---
PT RESTING. NO ACUTE DISTRESS NOTED AT THIS TIME.
--- NOTE | 2020-04-06 18:05 | NUR ---
PT RESTING. NO ACUTE DISTRESS NOTED.
--- NOTE | 2020-04-06 23:15 | NUR ---
THERAPIST PLACED PATIENT ON BIPAP 18/04. HOB ELEVATED.
--- NOTE | 2020-04-06 23:59 | NUR ---
Pt placed on BiPap 18/10. FiO2 35%. Alarms on and audible. SpO2 100%
[2020-04-07] VITALS: BP 129/73
--- NOTE | 2020-04-07 02:00 | NUR ---
PATIENT SLEEPING. ON BIPAP 18/04. NO DISTRESS.
[2020-04-07 04:00] VITALS: BP 121/58
--- NOTE | 2020-04-07 06:15 | NUR ---
[facility]
[2020-04-07 06:27] LABS: BASO % 0.1 % (0.0-1.0); HEMATOCRIT 54.1 % (42.0-52.0); LYMPH # 1.5 10*3/uL (1.3-4.4); LYMPH % 13.2 % (27.0-41.0); MEAN CELL VOLUME 94.7 fl (80.0-94.0); MEAN CORPUSCULAR HGB 29.1 pg (27.0-31.0); MEAN CORPUSCULAR HGB CONC 30.7 g/dl (33.0-37.0); MEAN PLATELET VOLUME 11.6 fl (9.6-12.3); MONO # 0.4 10*3/uL (0.1-1.0); MONO % 3.2 % (3.0-9.0); NEUT # 9.5 10*3/uL (2.3-7.9); NEUT % 83.1 % (47.0-73.0); PLATELET COUNT AUTOMATED 163 10*3/uL (130-400); RED BLOOD COUNT 5.71 10*6/uL (4.50-5.90); RED CELL DISTRI WIDTH 14.1 % (0-14.5); WHITE BLOOD COUNT 11.5 10*3/uL (4.8-10.8)
[2020-04-07 06:53] LABS: CHLORIDE 102 mmol/L (98-107); POTASSIUM 4.8 mmol/L (3.5-5.1); SODIUM 139 mmol/L (136-145)
[2020-04-07 07:05] LABS: ALBUMIN 2.8 gm/dl (3.1-4.5); ALKALINE PHOSPHATASE 92 U/L (45-117); BUN 21 mg/dl (7-24); CREATININE 0.65 mg/dL (0.70-1.30); SGOT/AST 44 IU/L (3-35); SGPT/ALT 83 U/L (12-78); TOTAL PROTEIN 6.4 gm/dL (6.4-8.2)
[2020-04-07 08:00] VITALS: BP 117/58
--- NOTE | 2020-04-07 08:35 | NUR ---
PHYSICAL THERAPY PT order recieved and chart reviewed. Pt states he just got up and was moving and does not want to get out of bed or do anything at this time. Spoke with nsg, will try at a later time. Irving Santos SPT Sridevi Merino PT
--- NOTE | 2020-04-07 09:00 | NUR ---
CM in to see patient. No new needs or request at this time. Discussed home health care services and he declines. CM will continue to follow for any discharge planning needs. When medically stable he will be discharged to home. Discussed discharge planning with Dr. Carnes. Plan is to get the patient out of the ICCU today.
--- NOTE | 2020-04-07 09:22 | NUR ---
Awake and alert. Declined PT/OT. Up in room to chair/ self. in . OK to transfer to [facility].
--- NOTE | 2020-04-07 11:10 | NUR ---
PHYSICAL THERAPY Attempted to see pt again later in the AM however pt currently recieving a breathing treatment will follow thank you Sridevi Merino PT
[2020-04-07 12:00] VITALS: BP 114/58
[2020-04-07 13:11] LABS: ABG BASE EXCESS 6.7 mmol/L (-2.0-2.0); ARTERIAL BLOOD GAS PH 7.382 (7.35-7.45)
--- NOTE | 2020-04-07 13:20 | NUR ---
PHYSICAL THERAPY Physical Therapy evaluation completed on ICCU with full evaluation to follow. Recommend physical therapy per plan of care and home w home health services upon discharge. Thank you for this referral. Irving Santos SPT Sridevi Merino PT
[2020-04-07 15:54] VITALS: BP 105/68
--- NOTE | 2020-04-07 19:34 | NUR ---
193 RESTING IN BED WITH HOB ELEVATED. SIDE RAILS UP X'S 2. CALL LIGHT IN REACH. PULSE OX 93% ON 2L. HEP LOCK INTACT. TYLENOL 2 PO GIVEN FOR C/O'S LEFT SIDED BACK PAIN. STATES " IT MIGHT BE FROM THE BED" WILL MONITOR
[2020-04-07 20:00] VITALS: BP 128/83
--- NOTE | 2020-04-07 20:34 | NUR ---
2033 EARLIER TYLENOL EFFECTIVE.
--- NOTE | 2020-04-07 22:14 | NUR ---
RESTING IN BED WATCHING TV. WILL PUT BIPAP ON CLOSER TO 2300.
[2020-04-08] VITALS: BP 115/63
--- NOTE | 2020-04-08 00:47 | NUR ---
0000 RESTING IN BED WITH BIPAP INTACT. PULSE OX 100% ON 35% FIO2 VIA BIPAP.
--- NOTE | 2020-04-08 02:07 | NUR ---
RESTING IN BED WITH EYES CLOSED. APPEARS TO BE SLEEPING.
[2020-04-08 06:05] LABS: HEMATOCRIT 49.5 % (42.0-52.0); LYMPH # 1.8 10*3/uL (1.3-4.4); LYMPH % 18.2 % (27.0-41.0); MEAN CELL VOLUME 94.5 fl (80.0-94.0); MEAN CORPUSCULAR HGB 29.6 pg (27.0-31.0); MEAN CORPUSCULAR HGB CONC 31.3 g/dl (33.0-37.0); MEAN PLATELET VOLUME 11.7 fl (9.6-12.3); MONO # 0.3 10*3/uL (0.1-1.0); MONO % 2.7 % (3.0-9.0); NEUT # 7.8 10*3/uL (2.3-7.9); NEUT % 78.8 % (47.0-73.0); PLATELET COUNT AUTOMATED 157 10*3/uL (130-400); RED BLOOD COUNT 5.24 10*6/uL (4.50-5.90); RED CELL DISTRI WIDTH 14.1 % (0-14.5)
[2020-04-08 06:15] LABS: ALBUMIN 2.5 gm/dl (3.1-4.5); BUN 23 mg/dl (7-24); CHLORIDE 102 mmol/L (98-107); POTASSIUM 4.8 mmol/L (3.5-5.1); SGOT/AST 34 IU/L (3-35); SGPT/ALT 71 U/L (12-78); SODIUM 140 mmol/L (136-145)
[2020-04-08 06:17] LABS: ALKALINE PHOSPHATASE 77 U/L (45-117); CREATININE 0.65 mg/dL (0.70-1.30); TOTAL PROTEIN 5.7 gm/dL (6.4-8.2)
--- NOTE | 2020-04-08 06:19 | NUR ---
SLEPT WELL THIS SHIFT. BIPAP INTACT. REMAINS WITHOUT C/O'S. CONDITION GUARDED.
[2020-04-08 08:00] VITALS: BP 124/53
--- NOTE | 2020-04-08 09:08 | NUR ---
0730 Requests BI-Pap off for breakfast , Removed and RT aware. Breakfast ordered and taken well.
--- NOTE | 2020-04-08 09:45 | NUR ---
PHYSICAL THERAPY Patient seen this am 1:1 for therapy visit and was sitting up on EOB upon therapiist arrival as his Nurse was completing MED pass. Patient identified by name / and presented with continuos O2-3L via NC, recording resting HR 87 bpm, SpO2 98%. Patient transfers sit to stand CGA and ambulates 10'x 2, CGA, while navigating around extended O2 hose. Patient needed v/c to improve overall safety awareness with O2 cord to prevent stepping on, tripping over or getting tangled up in during gait ex. Patient demonstrated mild fatigue with bouts of increased SOB, recording SpO2 88%, HR 101 bpm. Patient returned to EOB, needing brief seated rest break, then completed several additional sit to stand transfers, CGA, no AD, tolerating 1-2 minutes static stand to improve standing activity tolerance. Patient instructed on purse lip breathing technique while standing as SpO2 / HR remained WFL's. Patient returned to and remained EOB sit following treatment, reporting no new c/o's with call light, tray table and telephone. Will continue per POC as tolerated, total treatment time 17 minutes. Matt Weaver, TENTER FEEDER
--- NOTE | 2020-04-08 10:19 | NUR ---
Bi-pap placed after breakfast. When suboxone was given , pt. stated he liked to break it up and eat little bits over about 4 hours. Advised that he needed to take medications as ordered. Dr. Carnes in to [facility]. Requested Dr. Mena to text him on his arrival. Dr. Mena here and aware.
--- NOTE | 2020-04-08 10:59 | NUR ---
SORORITY SUPERVISOR WENT TO SPEAK WITH THE PATIENT. PATIENT IS CURRENTLY ON THE BIPAP. SORORITY SUPERVISOR SPOKE WITH JOSE M HOOKER WHO STATED THIS PATIENT TOLD HER HE WAS PREVIOUSLY AT A FACILITY AND WILLING TO DO WHATEVER DR MANJARREZ SUGGESTED. SORORITY SUPERVISOR ASKED JOSE M HOOKER TO CALL HER WHEN THE PATIENT IS OFF THE BIPAP TO DISCUSS SNF OPTIONS. SORORITY SUPERVISOR TO FOLLOW.
--- NOTE | 2020-04-08 11:12 | NUR ---
PATIENT HAS A HISTORY OF PLACEMENT AT [facility]. TIRE BUILDER HEAVY SERVICE FAXED REFERRAL TO [facility] FOR REVIEW. WILL SPEAK WITH THE PATIENT AND CONFIRM WHERE HE WOULD LIKE THE REFERRAL SENT. WILL NEED OT ORDER/EVALUATION. PATIENT REQUIRES PRECERT FOR PLACEMENT.
--- NOTE | 2020-04-08 11:42 | NUR ---
PATIENT TAKEN OFF BIPAP AND PLACED ON 3 L/M NC
[2020-04-08 12:00] VITALS: BP 105/49
--- NOTE | 2020-04-08 12:10 | NUR ---
CATALYST MANUFACTURING OPERATOR SPOKE WITH THIS PATIENT AT BEDSIDE. CATALYST MANUFACTURING OPERATOR EXPLAINED REFERRAL TO [facility], CATALYST MANUFACTURING OPERATOR EXPLAINED IT WAS DECLINED. PATIENT STATED WOULD LIKE TO BE REFERRED TO [facility]. CATALYST MANUFACTURING OPERATOR EXPLAINED IF THEY ARE UNABLE TO ACCEPT REFERRAL WOULD BE SENT TO [facility] FOR REVIEW. PATIENT UNDERSTOOD. WILL NEED OT ORDER/EVAL TO COMPLETE REFERRAL FOR PRECERT.
--- NOTE | 2020-04-08 13:01 | NUR ---
PC DECREASED TO 28, FIO2 DECREASED TO 90% PER ARIAS AZIZ'S ORDER.
--- NOTE | 2020-04-08 13:36 | NUR ---
Dr. Mena in spoke with Pt. as to discharge plan. pt. stated that he would go to skilled facility on discharge. guest services officer aware.
--- NOTE | 2020-04-08 13:47 | NUR ---
BOX PRINTER FAXED REFERRAL TO [facility].
--- NOTE | 2020-04-08 15:08 | NUR ---
PATIENT HAS BEEN ACCEPTED TO [facility].
--- NOTE | 2020-04-08 15:15 | NUR ---
Occupational Therapy evaluation completed in ICCU with full eval to follow. Precautions include ICCU, obesity,new continuous oxygen use with SOB w/min exertion and decreased oxygen saturation with ADLs and mobility, moderate complexity level [id number]. Patient cooperative and will ing to improve his status for improved quality of live. Recommend OT per pOC and SNF to enable patient's goal. Thank you. Sada Egan OTR/L
[2020-04-08 16:00] VITALS: BP 129/77
[2020-04-08 20:00] VITALS: BP 118/69
[2020-04-09] VITALS: BP 115/87
--- NOTE | 2020-04-09 00:03 | NUR ---
Patient resting quietly with no c/o discomfort. Respirations easy and regular. Vital signs stable. No overt distress. BIPAP IN USE. CALL LIGHT IN REACH. WILL CONTINUE TO MONITOR. LORENZA DAUGHERTY
[2020-04-09 06:10] LABS: ALBUMIN 2.5 gm/dl (3.1-4.5); ALKALINE PHOSPHATASE 78 U/L (45-117); BUN 21 mg/dl (7-24); CHLORIDE 102 mmol/L (98-107); CREATININE 0.56 mg/dL (0.70-1.30); POTASSIUM 4.7 mmol/L (3.5-5.1); SGOT/AST 25 IU/L (3-35); SGPT/ALT 69 U/L (12-78); SODIUM 139 mmol/L (136-145); TOTAL PROTEIN 5.6 gm/dL (6.4-8.2)
[2020-04-09 06:18] LABS: BASO % 0.1 % (0.0-1.0); HEMATOCRIT 49.1 % (42.0-52.0); LYMPH # 1.7 10*3/uL (1.3-4.4); LYMPH % 17.1 % (27.0-41.0); MEAN CELL VOLUME 94.1 fl (80.0-94.0); MEAN CORPUSCULAR HGB 30.1 pg (27.0-31.0); MEAN PLATELET VOLUME 11.5 fl (9.6-12.3); MONO # 0.3 10*3/uL (0.1-1.0); MONO % 3.2 % (3.0-9.0); NEUT # 7.8 10*3/uL (2.3-7.9); PLATELET COUNT AUTOMATED 140 10*3/uL (130-400); RED BLOOD COUNT 5.22 10*6/uL (4.50-5.90); RED CELL DISTRI WIDTH 14.2 % (0-14.5); WHITE BLOOD COUNT 9.9 10*3/uL (4.8-10.8)
--- NOTE | 2020-04-09 07:00 | NUR ---
ARRIVED ON SHIFT, REPORT RECEIVED FROM OFFGOING NURSE, ASSUMED CARE OF PATIENT.
--- NOTE | 2020-04-09 07:15 | NUR ---
INTRODUCED SELF TO PATIENT, BED IN LOW POSITION, WHEEL LOCKS ENGAGED, SIDE RAILS UP X 2 FOR TURNING AND REPOSITIONING, CALL LIGHT WITHIN REACH, NO NEEDS VOICED AT THIS TIME, WHITEBOARD UPDATED.
--- NOTE | 2020-04-09 07:59 | NUR ---
ORDER FILLER FAXED UPDATES TO [facility]. ORDER FILLER ASKED FOR PRECERT TO BE STARTED. WILL NEED COVID RESULTS BEFORE ADMITTING TO [facility].
[2020-04-09 08:00] VITALS: BP 118/47; BP 118/60
--- NOTE | 2020-04-09 08:10 | NUR ---
Shift chart check completed.
--- NOTE | 2020-04-09 09:00 | NUR ---
CM in to see patient. Nurse in room. He is sitting on the edge of his bed. Discussed short term rehab at [facility] and he remains agreeable. Explained waiting on his COVID results and insurance authorization prior to him being able to be discharged to [facility]. He verbalized an understanding. tank worker following for referral.
--- NOTE | 2020-04-09 09:15 | NUR ---
PHYSICAL THERAPY Patient seen this am 1:1 for therapy visit and was sitting up on EOB following breathing treatment. Patient identified by name / and presented with continuous O2-3L via NC. OT library services assistant was also present this morning for observation as patient records resting SpO2 97%, HR 84 bpm. Patient transfers sit to stand CGA and ambulates without AD, 20'x 2 to bathroom, CGA, demonstrating slow, cautious gait pattern. Patient also instructed on purse lip breathing technique due to increased SOB, however upon return to EOB sit recorded SpO2 98%, HR 99 bpm. Patient remained EOB sit with call light, tray table and telephone. Will continue per POC as tolerated, total treatment time 16 minutes. Matt Weaver, DRUM DRIER
--- NOTE | 2020-04-09 09:18 | NUR ---
OT NOTE Pt was seen this A.M. 1:1 for 15 minute OT session. Upon arrival pt was sitting upright on the EOB. Pt identified by name and and had no complaints at this time. Pt presented to therapy with continuous 3L-O2 via NC which he remained on throughout the entire session. Pt's resting SpO2 read 97% and heart rate 84 bpm. While sitting EOB pt was educated on energy conservation techniques. Pt donned B socks using compensatory technique of bringing leg up to bed level with supervision. Sit to stand completed from bed level with CGA followed by functional mobility to the bathroom with CGA for safety. Pt transferred on/off standard commode with CGA for safety. Functional mobility completed back to the EOB. Throughout activity pt required verbal prompts for breathing techniques. Upon arrival pt's SpO2 read 98% and heart rate 99 bpm. Pt was left sitting upright on the EOB with call light in hand, tray table in place, and phone in reach. Continue with rec D/C plan to SNF. MELO Bustillo
[2020-04-09 12:00] VITALS: BP 137/87
[2020-04-09 16:00] VITALS: BP 120/56
--- NOTE | 2020-04-09 19:20 | NUR ---
REPORT RECEIVED. PT WATCHING TV. NO COMPLAINTS VOICED. CALL LIGHT IN REACH
[2020-04-09 20:00] VITALS: BP 125/48
--- NOTE | 2020-04-09 21:54 | NUR ---
24 HR chart check completed.
[2020-04-10] VITALS: BP 130/71
--- NOTE | 2020-04-10 | NUR ---
PT SLEEPING AT THIS TIME. BIPAP IN PLACE. CALL LIGHT IN REACH
--- NOTE | 2020-04-10 03:00 | NUR ---
PT RESTING AT THIS TIME. O2 INTACT. CALL LIGHT IN REACH
--- NOTE | 2020-04-10 03:07 | NUR ---
PATIENT REMOVED FROM BIPAP PER THEIR REQUEST AT 0250, PLACED ON 3 LNC.
--- NOTE | 2020-04-10 04:30 | NUR ---
PT ASLEEP AT THIS TIME. O2 INTACT
--- NOTE | 2020-04-10 05:57 | NUR ---
SLEEPING. NO DISTRESS NOTED
[2020-04-10 06:00] LABS: BASO % 0.1 % (0.0-1.0); EOS % 0.1 % (1.0-4.0); HEMATOCRIT 49.7 % (42.0-52.0); LYMPH # 2.6 10*3/uL (1.3-4.4); LYMPH % 29.5 % (27.0-41.0); MEAN CELL VOLUME 94.1 fl (80.0-94.0); MEAN CORPUSCULAR HGB 29.7 pg (27.0-31.0); MEAN CORPUSCULAR HGB CONC 31.6 g/dl (33.0-37.0); MEAN PLATELET VOLUME 11.4 fl (9.6-12.3); MONO # 0.7 10*3/uL (0.1-1.0); MONO % 7.6 % (3.0-9.0); NEUT # 5.5 10*3/uL (2.3-7.9); NEUT % 62.2 % (47.0-73.0); PLATELET COUNT AUTOMATED 127 10*3/uL (130-400); RED BLOOD COUNT 5.28 10*6/uL (4.50-5.90); RED CELL DISTRI WIDTH 14.1 % (0-14.5); WHITE BLOOD COUNT 8.9 10*3/uL (4.8-10.8)
[2020-04-10 06:15] LABS: CREATININE 0.59 mg/dL (0.70-1.30)
[2020-04-10 08:00] VITALS: BP 139/68
[2020-04-10 12:00] VITALS: BP 140/76
[2020-04-10 16:00] VITALS: BP 139/54; BP 141/82
--- NOTE | 2020-04-10 19:15 | NUR ---
REPORT RECEIVED. PT SITTING ON SIDE OF BED AT THIS TIME. PT VERBALIZES NO COMPLAINTS. O2 INTACT. CALL LIGHT IN REACH
[2020-04-10 20:00] VITALS: BP 154/72
--- NOTE | 2020-04-10 21:57 | NUR ---
IN TO SEE PT. PT VOICES NO COMPLAINTS.
[2020-04-11] VITALS: BP 134/72
--- NOTE | 2020-04-11 | NUR ---
PT ASLEEP AT THIS TIME. BIPAP IN PLACE
--- NOTE | 2020-04-11 03:00 | NUR ---
PT TAKEN OFF BIPA PER REQUEST. NO OTHER COMPLAINTS
--- NOTE | 2020-04-11 07:00 | NUR ---
ARRIVED ON SHIFT, REPORT RECEIVED FROM OFFGOING NURSE, ASSUMED CARE OF PATIENT.
--- NOTE | 2020-04-11 07:56 | NUR ---
Shift chart check completed.
[2020-04-11 08:00] VITALS: BP 133/67
[2020-04-11 12:00] VITALS: BP 124/63
[2020-04-11 16:00] VITALS: BP 145/73
--- NOTE | 2020-04-11 19:39 | NUR ---
PT ASLEEP IN BED. NO S/S OF DISTRESS NOTED. WILL MONITOR. CALL LIGHT IN REACH.
[2020-04-11 20:00] VITALS: BP 137/84
--- NOTE | 2020-04-11 20:28 | NUR ---
PT REQUESTING TO WEAR BIPAP COUPLE HOURS ON & COUPLE HOURS OFF THROUGHOUT THE NIGHT. RN EXPLAINED BIPAP ORDERED CONTINUOUS @ HS AND ENCOURAGED CONTINOUS USE TOLERATED. PT STATES "YEAH, NO. JUST A FEW HOURS." RN ASKED IF PT WILLING TO GO ON NOW FOR A FEW HOURS. PT REPLIES YES. RESPIRATORY THERAPIST NOTIFIED. PT REFUSING TO WEAR MASK FOR RESPIRATORY. STATES "NOTHING AGAINST YOU, BUT I'M NOT WEARING IT."
--- NOTE | 2020-04-11 20:28 | NUR ---
PT REQUESTING TO WEAR BIPAP COUPLE HOURS ON & COUPLE HOURS OFF THROUGHOUT THE NIGHT. RN EXPLAINED BIPAP ORDERED CONTINUOUS @ HS AND ENCOURAGED CONTINOUS USE TOLERATED. PT STATES "YEAH, NO. JUST A FEW HOURS." RN ASKED IF PT WILLING TO GO ON NOW FOR A FEW HOURS. PT WANTS TO WAIT UNTIL AROUND 10 PM. RESPIRATORY NOTIFIED.
--- NOTE | 2020-04-11 22:00 | NUR ---
PLACED PATIENT ON BIPAP FOR HS
[2020-04-12] VITALS: BP 120/72
--- NOTE | 2020-04-12 01:45 | NUR ---
PT CALLED OUT. TOOK HIMSELF OFF OF BIPAP. O2 APPLIED VIA 3L NC. BIPAP PLACED ON STANDBY. WILL MONITOR. CALL LIGHT IN REACH.
--- NOTE | 2020-04-12 07:00 | NUR ---
ARRIVED ON SHIFT, REPORT RECEIVED FROM OFFGOING NURSE, WHITE BOARD UPDATED.
--- NOTE | 2020-04-12 07:09 | NUR ---
Shift chart check completed.
--- NOTE | 2020-04-12 07:30 | NUR ---
INTRODUCED SELF TO PATIENT, BED IN LOW POSITION, WHEEL LOCKS ENGAGED, SIDE RAILS UP X 2 FOR TURNING AND REPOSITIONING, BED ALARM SOLAR ENERGY SYSTEM INSTALLER LIGHT AND PHONE WITHIN REACH, NO NEEDS VOICED AT THIS TIME, WHITE BOARD UPDATED.
--- NOTE | 2020-04-12 07:39 | NUR ---
STRAIGHTENING PRESS OPERATOR COMPLETED HENS.
--- NOTE | 2020-04-12 07:40 | NUR ---
Notified Dr. Carnes patient can be discharged to [facility] when medically stable.
--- NOTE | 2020-04-12 07:44 | NUR ---
PARCEL POST OFFICER FAXED UPDATES TO [facility]. WILL NEED UPDATED PT/OT NOTES.
--- NOTE | 2020-04-12 07:50 | NUR ---
PHYSICAL THERAPY Patient seen this am 1;1 for therapy visit and was resting supine in bed upon therapist arrival. Patient identified by name / and voices no new c/o's at this time. Patient presented with continuos O2-4L via NC, recording resting SpO2 99%, HR 71 bpm, prior to transfering supine to sit EOB with CGA. Patient completed sit to stand CGA, then ambulated ad power in room, no AD, 20'x 2 to bathroom, demonstrating slow, cautious gait pattern. Patient needed v/c to increase stride and improve safe 90/180 turns to reduce risk of faling. Patient returned to EOB sit and remained with call light, tray table, telephone. Will continue per POC as tolerated, total treatment time 16 minutes. Matt Weaver, AGENCY SALES DIRECTOR
[2020-04-12 08:00] VITALS: BP 134/66
--- NOTE | 2020-04-12 08:00 | NUR ---
OT NOTE Pt was seen this A.M. 1:1 for 25 minute OT session. Upon arrival pt was supine in bed. Pt identified by name and and had complaints of B feet being "sore" but not painful. Pt presented to therapy with continuous 4L-O2 via NC which he remained on throughout the entire session. Pt's resting heart rate read 71 bpm and SpO2 99%. Pt transferred supine to sit EOB with SBA. While sitting EOB pt donned B socks using compensatory technique previously educated on by bringing leg up to bed level with SBA. Sit to stand completed from bed level with SBA followed by functional mobility to the bathroom with SBA and occasional verbal prompts for O2 line management and safety. Pt presented with fair carry over. There he transferred on/off standard commode with SBA and use of grab bar for UE support. He then stood sink side while washing his hands and face with SBA. FUnctional mobility completed back to the EOB where his SpO2 read 96% and heart rate 88 bpm. Pt was then provided with and educated on energy conservation handout. Pt voiced no concerns/questions. Pt was left sitting upright on the EOB with call light in hand, tray table in place, and phone in reach. Continue with rec D/C plan to SNF. DUARTE Bustillo/Joshua
--- NOTE | 2020-04-12 09:00 | NUR ---
CM in to see patient. Discussed the possibility of him being discharged to [facility] today. Awaiting Dr. Carnes to round. He states he will have transportation to [facility]. convention planner/outreach and education social worker following.
--- NOTE | 2020-04-12 09:48 | NUR ---
BOAT TENDER FAXED PT/OT NOTES TO [facility].
--- NOTE | 2020-04-12 09:50 | NUR ---
PT/OT notes faxed to [facility] for precert that was started on Sunday04/09/2020. Waiting on auth.
[2020-04-12 12:00] VITALS: BP 131/62
--- NOTE | 2020-04-12 14:27 | NUR ---
TRIMMING PRESS OPERATOR NOTIFIED OF PATIENT DISCHARGE. PATIENTS BIPAP IS AT [facility]. TRIMMING PRESS OPERATOR SPOKE WITH RN. PATIENT IS HAVING FAMILY/FRIEND TRANSPORT TO [facility]. TRIMMING PRESS OPERATOR NOTIFIED [facility]. TRIMMING PRESS OPERATOR WILL FAX DISCHARGE ORDERS TO [facility].
--- NOTE | 2020-04-12 15:04 | NUR ---
Discharge instructions reviewed with patient/family. Patient receptive and verbalizes understanding. Follow-up care arranged. Written instructions given to patient/family. PATIENT DISCHARGED TO [facility] VIA POV, CALL PLACED TO [facility] NURSE TO NURSE REPORT GIVEN TO JOE SALGUERO, IV REMOVED PATIENT TAKEN OUT VIA W/C WITH O2 IN PLACE BY HOSPITAL PA, REFUSED O2 FOR TRANSPORT TO [facility], PATIENT INSTRUCTED TO GIVE, ENVELOPE WITH RECORDS,
--- NOTE | 2020-04-12 16:22 | NUR ---
OCCUPATIONAL THERAPY CO-SIGN I approve of the Occupational Therapy notes written above. DIPIKA MARIN OTR/Joshua
--- NOTE | 2020-04-13 07:16 | NUR ---
PHYSICAL THERAPY CO-SIGN I approve of the Physical Therapy notes written above. Sridevi Merino PT
== END 2020-04-12 15:04 | disposition other institution (70) | DRG 871 ==
LOC: ED 15:35 → ICCU 17:45 → EDHOLD 17:45 → ICCU 18:57 → 4E 04-08 18:51
PROVIDERS: Emergency Medicine; Internal Medicine Critical Care Medicine; ADMIT Internal Medicine; ATTEND Internal Medicine
PROC: 5A09357 Assistance with Respiratory Ventilation, Less than 24 Consecutive Hours, Continuous Positive Airway Pressure (ICD-10-PCS; principal; 2020-04-05)
PROC: 5A09357 Assistance with Respiratory Ventilation, Less than 24 Consecutive Hours, Continuous Positive Airway Pressure (ICD-10-PCS; 2020-04-06)
PROC: 5A09357 Assistance with Respiratory Ventilation, Less than 24 Consecutive Hours, Continuous Positive Airway Pressure (ICD-10-PCS; 2020-04-07)
PROC: 5A09357 Assistance with Respiratory Ventilation, Less than 24 Consecutive Hours, Continuous Positive Airway Pressure (ICD-10-PCS; 2020-04-08)
PROC: 5A09357 Assistance with Respiratory Ventilation, Less than 24 Consecutive Hours, Continuous Positive Airway Pressure (ICD-10-PCS; 2020-04-09)
PROC: 5A09357 Assistance with Respiratory Ventilation, Less than 24 Consecutive Hours, Continuous Positive Airway Pressure (ICD-10-PCS; 2020-04-10)
PROC: 5A09357 Assistance with Respiratory Ventilation, Less than 24 Consecutive Hours, Continuous Positive Airway Pressure (ICD-10-PCS; 2020-04-11)
PROC: 5A09357 Assistance with Respiratory Ventilation, Less than 24 Consecutive Hours, Continuous Positive Airway Pressure (ICD-10-PCS; 2020-04-12)
DX: A41.9 Sepsis, unspecified organism (principal); J96.21 Acute and chronic respiratory failure with hypoxia; J96.22 Acute and chronic respiratory failure with hypercapnia; J18.9 Pneumonia, unspecified organism; J44.1 Chronic obstructive pulmonary disease with (acute) exacerbation; F11.20 Opioid dependence, uncomplicated; Z68.41 Body mass index [BMI] 40.0-44.9, adult; J44.0 Chronic obstructive pulmonary disease with (acute) lower respiratory infection; E87.3 Alkalosis; R65.20 Severe sepsis without septic shock; E66.01 Morbid (severe) obesity due to excess calories; I10 Essential (primary) hypertension; F17.210 Nicotine dependence, cigarettes, uncomplicated; M47.816 Spondylosis without myelopathy or radiculopathy, lumbar region; J20.9 Acute bronchitis, unspecified; Z20.828 Contact with and (suspected) exposure to other viral communicable diseases; R62.7 Adult failure to thrive; Z96.652 Presence of left artificial knee joint; D75.1 Secondary polycythemia; G47.33 Obstructive sleep apnea (adult) (pediatric); E77.8 Other disorders of glycoprotein metabolism; Z90.49 Acquired absence of other specified parts of digestive tract; Z83.3 Family history of diabetes mellitus; Z71.6 Tobacco abuse counseling

== ENCOUNTER 2020-05-30 16:08 | Emergency (ER) | payer OTHER ==
[~2020-05-30] VITALS: Ht 187.9 cm; Wt 127.0 kg
[2020-05-30 16:13] VITALS: BP 131/84
[2020-05-30] MEDS ORDERED: MEDROL DOSEPAK4 MG PO (16:52)
[2020-05-30] MEDS ORDERED: ROBAXIN-750750 MG PO (16:52)
== END 2020-05-30 17:33 | disposition home or self-care (01) ==
LOC: ED 16:08
DX: M54.6 Pain in thoracic spine (principal); J44.9 Chronic obstructive pulmonary disease, unspecified; I50.9 Heart failure, unspecified; I11.0 Hypertensive heart disease with heart failure; Z79.899 Other long term (current) drug therapy; Z87.891 Personal history of nicotine dependence

== ENCOUNTER → 2021-03-30 | Outpatient (CLI) | payer OTHER ==
[2021-03-30 10:26] LABS: BASO % 0.4 % (0.0-1.0); EOS # 0.2 10*3/uL (0.0-0.4); EOS % 2.1 % (1.0-4.0); HEMATOCRIT 50.1 % (42.0-52.0); LYMPH # 2.8 10*3/uL (1.3-4.4); LYMPH % 34.4 % (27.0-41.0); MEAN CELL VOLUME 96.3 fl (80.0-94.0); MEAN CORPUSCULAR HGB 30.4 pg (27.0-31.0); MEAN CORPUSCULAR HGB CONC 31.5 g/dl (33.0-37.0); MEAN PLATELET VOLUME 11.2 fl (9.6-12.3); MONO # 0.7 10*3/uL (0.1-1.0); MONO % 8.3 % (3.0-9.0); NEUT # 4.4 10*3/uL (2.3-7.9); NEUT % 54.5 % (47.0-73.0); PLATELET COUNT AUTOMATED 182 10*3/uL (130-400); RED CELL DISTRI WIDTH 13.2 % (0-14.5)
[2021-03-30 10:44] LABS: ALBUMIN 2.5 gm/dl (3.1-4.5); BUN 8 mg/dl (7-24); CHLORIDE 104 mmol/L (98-107); CHOLESTEROL 148 mg/dL (<200); CREATININE 0.72 mg/dL (0.70-1.30); POTASSIUM 3.9 mmol/L (3.5-5.1); SGOT/AST 70 IU/L (3-35); SGPT/ALT 53 U/L (12-78); SODIUM 139 mmol/L (136-145); TOTAL PROTEIN 6.9 gm/dL (6.4-8.2); TRIGLYCERIDES 75 mg/dl (<150)
[2021-03-30 10:50] LABS: ALKALINE PHOSPHATASE 112 U/L (45-117); FREE T4 1.28 ng/dl (0.76-1.46); LDL CHOLESTEROL 75 mg/dL (9-159)
[2021-03-30 11:10] LABS: VITAMIN D, 25-HYDROXY 36.8 ng/mL (30-100)
== END | disposition home or self-care (01) ==
LOC: LAB 09:36 → CT 10:00
PROVIDERS: ATTEND Internal Medicine
DX: Z12.5 Encounter for screening for malignant neoplasm of prostate (principal); I25.10 Atherosclerotic heart disease of native coronary artery without angina pectoris; R91.1 Solitary pulmonary nodule; I10 Essential (primary) hypertension; E11.9 Type 2 diabetes mellitus without complications; E78.2 Mixed hyperlipidemia; E55.9 Vitamin D deficiency, unspecified

== ENCOUNTER → 2021-04-04 | Outpatient (CLI) | payer OTHER ==
[2021-04-05 09:07] LABS: HEP B CORE AB, IGM Negative (Negative); HEPATITIS B SURFACE AG Negative (Negative); HEPATITIS C VIRUS ANTIBODY >11.0 s/co (0.0-0.9)
== END | disposition home or self-care (01) ==
LOC: LAB 16:56
PROVIDERS: ATTEND Internal Medicine
DX: R94.5 Abnormal results of liver function studies (principal)

== ENCOUNTER 2021-06-27 11:07 | Inpatient (IN) | payer OTHER ==
[~2021-06-27] VITALS: Ht 187.9 cm; Wt 156.7 kg
[2021-06-27 11:17] VITALS: BP 138/90
[2021-06-27 11:41] LABS: BASO % 0.5 % (0.0-1.0); EOS # 0.2 10*3/uL (0.0-0.4); EOS % 3.6 % (1.0-4.0); HEMATOCRIT 49.8 % (42.0-52.0); LYMPH # 3.4 10*3/uL (1.3-4.4); LYMPH % 52.2 % (27.0-41.0); MEAN CELL VOLUME 94.1 fl (80.0-94.0); MEAN CORPUSCULAR HGB 30.2 pg (27.0-31.0); MEAN CORPUSCULAR HGB CONC 32.1 g/dl (33.0-37.0); MEAN PLATELET VOLUME 12.3 fl (9.6-12.3); MONO # 0.4 10*3/uL (0.1-1.0); NEUT # 2.4 10*3/uL (2.3-7.9); NEUT % 37.4 % (47.0-73.0); PLATELET COUNT AUTOMATED 112 10*3/uL (130-400); RED BLOOD COUNT 5.29 10*6/uL (4.50-5.90); WHITE BLOOD COUNT 6.5 10*3/uL (4.8-10.8)
[2021-06-27 11:52] LABS: ACT PARTIAL THROMBO TIME 29.3 SECONDS (20.0-32.1); INTERNATIONAL NORM RATIO 1.1 (2.0-3.5)
[2021-06-27 12:00] VITALS: BP 111/75
[2021-06-27 12:04] LABS: ALBUMIN 2.5 gm/dl (3.1-4.5); ALKALINE PHOSPHATASE 115 U/L (45-117); BUN 10 mg/dl (7-24); CHLORIDE 105 mmol/L (98-107); CREATININE 0.72 mg/dL (0.70-1.30); LIPASE 32 U/L (73-393); POTASSIUM 3.7 mmol/L (3.5-5.1); SGOT/AST 62 IU/L (3-35); SGPT/ALT 44 U/L (12-78); SODIUM 141 mmol/L (136-145); TOTAL PROTEIN 6.7 gm/dL (6.4-8.2)
[2021-06-27 12:08] LABS: BILIRUBIN 2+ (Negative); BLOOD Negative (Negative); CLARITY Clear (Clear); COLOR Orange (Yellow); GLUCOSE Negative (Negative); KETONE Negative (Negative); LEUKO ESTERASE 1+ (Negative); NITRITE Positive (Negative); PH 5.5 (4.5-8.0); SPECIFIC GRAVITY >= 1.030 (1.001-1.030)
[2021-06-27 12:41] LABS: BACTERIA 3+
[2021-06-27 14:00] VITALS: BP 130/80
[2021-06-27 17:14] VITALS: BP 126/76
[2021-06-27 17:40] VITALS: BP 143/98
[2021-06-27] MEDS ORDERED: NAPROXEN500 MG PO (17:47)
[2021-06-27 20:00] VITALS: BP 111/75; BP 120/65
[2021-06-28] VITALS (7 sets, daily range): BP systolic 91–149; BP diastolic 48–90
[2021-06-28 07:03] LABS: HEMATOCRIT 51.9 % (42.0-52.0); LYMPH # 1.4 10*3/uL (1.3-4.4); LYMPH % 35.2 % (27.0-41.0); MEAN CELL VOLUME 95.2 fl (80.0-94.0); MEAN CORPUSCULAR HGB 29.9 pg (27.0-31.0); MEAN CORPUSCULAR HGB CONC 31.4 g/dl (33.0-37.0); MONO % 0.8 % (3.0-9.0); NEUT # 2.5 10*3/uL (2.3-7.9); NEUT % 63.5 % (47.0-73.0); PLATELET COUNT AUTOMATED 117 10*3/uL (130-400); RED BLOOD COUNT 5.45 10*6/uL (4.50-5.90); RED CELL DISTRI WIDTH 13.7 % (0-14.5); WHITE BLOOD COUNT 3.9 10*3/uL (4.8-10.8)
[2021-06-28 07:13] LABS: BUN 13 mg/dl (7-24); CHLORIDE 105 mmol/L (98-107); CREATININE 0.57 mg/dL (0.70-1.30); POTASSIUM 4.5 mmol/L (3.5-5.1); SODIUM 140 mmol/L (136-145)
[2021-06-29] VITALS: BP 94/50
[2021-06-29 08:00] VITALS: BP 100/80
== END 2021-06-29 11:38 | disposition home or self-care (01) | DRG 291 ==
LOC: ED 11:07 → EDHOLD 15:17 → 5E 15:17
PROVIDERS: Emergency Medicine; ADMIT Internal Medicine; ATTEND Internal Medicine
DX: I11.0 Hypertensive heart disease with heart failure (principal); I50.33 Acute on chronic diastolic (congestive) heart failure; J44.1 Chronic obstructive pulmonary disease with (acute) exacerbation; N39.0 Urinary tract infection, site not specified; Z68.42 Body mass index [BMI] 45.0-49.9, adult; J96.10 Chronic respiratory failure, unspecified whether with hypoxia or hypercapnia; F11.10 Opioid abuse, uncomplicated; E66.01 Morbid (severe) obesity due to excess calories; R62.7 Adult failure to thrive; F17.210 Nicotine dependence, cigarettes, uncomplicated; M19.90 Unspecified osteoarthritis, unspecified site; Z83.3 Family history of diabetes mellitus; Z79.51 Long term (current) use of inhaled steroids; Z79.899 Other long term (current) drug therapy; Z90.49 Acquired absence of other specified parts of digestive tract

== ENCOUNTER 2021-08-12 16:03 | Inpatient (IN) | payer OTHER ==
[~2021-08-12] VITALS: Ht 187.9 cm; Wt 151.0 kg
[~2021-08-12 16:03] MED LIST changes: +NAPROXEN500 MG PO; +NATURE'S BLEND F1 MG PO; +TYLENOL EXTRA500 MG PO
[2021-08-12 16:11] VITALS: BP 150/83
[2021-08-12 16:40] LABS: EOS % 0.1 % (1.0-4.0); HEMATOCRIT 54.4 % (42.0-52.0); LYMPH # 0.6 10*3/uL (1.3-4.4); LYMPH % 6.9 % (27.0-41.0); MEAN CELL VOLUME 92.4 fl (80.0-94.0); MEAN CORPUSCULAR HGB 29.4 pg (27.0-31.0); MEAN CORPUSCULAR HGB CONC 31.8 g/dl (33.0-37.0); MEAN PLATELET VOLUME 11.9 fl (9.6-12.3); MONO % 11.3 % (3.0-9.0); NEUT # 7.1 10*3/uL (2.3-7.9); PLATELET COUNT AUTOMATED 151 10*3/uL (130-400); RED BLOOD COUNT 5.89 10*6/uL (4.50-5.90); RED CELL DISTRI WIDTH 13.6 % (0-14.5); WHITE BLOOD COUNT 8.8 10*3/uL (4.8-10.8)
[2021-08-12 16:51] LABS: ACT PARTIAL THROMBO TIME 26.2 SECONDS (20.0-32.1); INTERNATIONAL NORM RATIO 1.1 (2.0-3.5)
[2021-08-12 16:57] LABS: ALKALINE PHOSPHATASE 94 U/L (45-117); BUN 18 mg/dl (7-24); CHLORIDE 102 mmol/L (98-107); POTASSIUM 3.9 mmol/L (3.5-5.1); SGOT/AST 74 IU/L (3-35); SGPT/ALT 70 U/L (12-78); SODIUM 140 mmol/L (136-145); TOTAL PROTEIN 7.2 gm/dL (6.4-8.2)
[2021-08-12 20:08] VITALS: BP 126/61
[2021-08-12 22:00] VITALS: BP 200/102
[2021-08-12 22:30] VITALS: BP 86/55
[2021-08-12 23:00] VITALS: BP 90/56
[2021-08-12 23:30] VITALS: BP 97/49
[2021-08-12 23:59] LABS: ABG BASE EXCESS 3.3 mmol/L (-2.0-2.0); ARTERIAL BLOOD GAS PH 7.245 (7.35-7.45); ARTERIAL BLOOD GAS PO2 484.4 (80-90)
[2021-08-13] VITALS (72 sets, daily range): BP systolic 80–136; BP diastolic 46–95
[2021-08-13 06:52] LABS: HEMATOCRIT 53.8 % (42.0-52.0); MEAN CELL VOLUME 93.2 fl (80.0-94.0); MEAN CORPUSCULAR HGB CONC 32.2 g/dl (33.0-37.0); MEAN PLATELET VOLUME 12.1 fl (9.6-12.3); PLATELET COUNT AUTOMATED 195 10*3/uL (130-400); RED BLOOD COUNT 5.77 10*6/uL (4.50-5.90); WHITE BLOOD COUNT 11.8 10*3/uL (4.8-10.8)
[2021-08-13 06:59] LABS: MANUAL DIFF REFLEX YES
[2021-08-13 07:08] LABS: BUN 25 mg/dl (7-24); CHLORIDE 99 mmol/L (98-107); POTASSIUM 4.2 mmol/L (3.5-5.1); SODIUM 137 mmol/L (136-145)
[2021-08-13 07:15] LABS: ALKALINE PHOSPHATASE 94 U/L (45-117); CREATININE 1.24 mg/dL (0.70-1.30); SGOT/AST 69 IU/L (3-35); SGPT/ALT 69 U/L (12-78); TOTAL PROTEIN 6.6 gm/dL (6.4-8.2)
[2021-08-13 07:46] LABS: PLATELET SUFFICIENCY NORMAL (NORMAL); TOTAL CELLS COUNTED 100 #CELLS
[2021-08-13 07:47] LABS: ABG BASE EXCESS 6.5 mmol/L (-2.0-2.0); ARTERIAL BLOOD GAS PH 7.406 (7.35-7.45); ARTERIAL BLOOD GAS PO2 78.7 (80-90)
[2021-08-13 11:39] LABS: BILIRUBIN Negative (Negative); BLOOD 2+ (Negative); CLARITY Cloudy (Clear); COLOR Yellow (Yellow); GLUCOSE Negative (Negative); KETONE Negative (Negative); LEUKO ESTERASE Trace (Negative); NITRITE Negative (Negative); PH 5.5 (4.5-8.0); SPECIFIC GRAVITY 1.015 (1.001-1.030)
[2021-08-13 13:27] LABS: RBC 31-40 rbc/hpf (0-2)
[2021-08-13 13:29] LABS: BACTERIA 2+; CALCIUM OXALATE CRYSTALS Trace; WAXY CAST 21-30; WBC 16-20 wbc/hpf (0-5); WHITE BLOOD CELL CAST 16-20
[2021-08-14] VITALS (47 sets, daily range): BP systolic 95–138; BP diastolic 56–85
[2021-08-14 08:56] LABS: ARTERIAL BLOOD GAS PH 7.418 (7.35-7.45)
[2021-08-14 13:48] LABS: ABG BASE EXCESS 8.2 mmol/L (-2.0-2.0); ARTERIAL BLOOD GAS PH 7.484 (7.35-7.45); ARTERIAL BLOOD GAS PO2 73.3 (80-90)
[2021-08-14 16:37] LABS: ABG BASE EXCESS 6.5 mmol/L (-2.0-2.0); ARTERIAL BLOOD GAS PH 7.437 (7.35-7.45); ARTERIAL BLOOD GAS PO2 67.7 (80-90)
[2021-08-15] VITALS: BP 129/84
[2021-08-15 04:00] VITALS: BP 117/80
[2021-08-15 04:24] LABS: LYMPH % 11.1 % (27.0-41.0); MEAN CELL VOLUME 91.4 fl (80.0-94.0); MEAN CORPUSCULAR HGB 29.3 pg (27.0-31.0); MEAN PLATELET VOLUME 12.2 fl (9.6-12.3); MONO # 0.3 10*3/uL (0.1-1.0); MONO % 3.1 % (3.0-9.0); NEUT # 7.9 10*3/uL (2.3-7.9); NEUT % 84.9 % (47.0-73.0); RED BLOOD COUNT 5.36 10*6/uL (4.50-5.90); RED CELL DISTRI WIDTH 13.8 % (0-14.5); WHITE BLOOD COUNT 9.3 10*3/uL (4.8-10.8)
[2021-08-15 04:27] LABS: PLATELET COUNT AUTOMATED 113 10*3/uL (130-400)
[2021-08-15 04:51] LABS: ALKALINE PHOSPHATASE 75 U/L (45-117); BUN 29 mg/dl (7-24); CHLORIDE 102 mmol/L (98-107); POTASSIUM 4.5 mmol/L (3.5-5.1); SGOT/AST 37 IU/L (3-35); SGPT/ALT 44 U/L (12-78); SODIUM 141 mmol/L (136-145); TOTAL PROTEIN 5.9 gm/dL (6.4-8.2)
[2021-08-15 08:00] VITALS: BP 117/72
[2021-08-15 08:15] LABS: ABG BASE EXCESS 10.7 mmol/L (-2.0-2.0); ARTERIAL BLOOD GAS PH 7.458 (7.35-7.45); ARTERIAL BLOOD GAS PO2 116.6 (80-90)
[2021-08-15 12:00] VITALS: BP 116/70
[2021-08-15 16:00] VITALS: BP 94/50
[2021-08-15 20:00] VITALS: BP 100/67
[2021-08-16] VITALS: BP 95/57
[2021-08-16 04:00] VITALS: BP 99/60
[2021-08-16 06:07] LABS: ALKALINE PHOSPHATASE 72 U/L (45-117); CHLORIDE 101 mmol/L (98-107); CREATININE 0.78 mg/dL (0.70-1.30); POTASSIUM 4.9 mmol/L (3.5-5.1); SGOT/AST 74 IU/L (3-35); SGPT/ALT 65 U/L (12-78); SODIUM 139 mmol/L (136-145); TOTAL PROTEIN 5.9 gm/dL (6.4-8.2)
[2021-08-16 06:14] LABS: BASO % 0.1 % (0.0-1.0); HEMATOCRIT 49.6 % (42.0-52.0); LYMPH # 1.1 10*3/uL (1.3-4.4); LYMPH % 13.5 % (27.0-41.0); MEAN CELL VOLUME 93.1 fl (80.0-94.0); MEAN CORPUSCULAR HGB 29.3 pg (27.0-31.0); MEAN CORPUSCULAR HGB CONC 31.5 g/dl (33.0-37.0); MEAN PLATELET VOLUME 12.9 fl (9.6-12.3); MONO # 0.4 10*3/uL (0.1-1.0); MONO % 5.3 % (3.0-9.0); NEUT # 6.7 10*3/uL (2.3-7.9); NEUT % 80.1 % (47.0-73.0); PLATELET COUNT AUTOMATED 128 10*3/uL (130-400); RED BLOOD COUNT 5.33 10*6/uL (4.50-5.90); RED CELL DISTRI WIDTH 13.9 % (0-14.5); WHITE BLOOD COUNT 8.3 10*3/uL (4.8-10.8)
[2021-08-16 06:45] LABS: BUN 36 mg/dl (7-24)
[2021-08-16 08:00] VITALS: BP 96/54
[2021-08-16 12:00] VITALS: BP 99/57
[2021-08-16 16:00] VITALS: BP 100/48
[2021-08-16 20:00] VITALS: BP 116/68
[2021-08-17] VITALS: BP 115/65
[2021-08-17 06:56] LABS: BASO % 0.1 % (0.0-1.0); HEMATOCRIT 51.1 % (42.0-52.0); LYMPH # 1.3 10*3/uL (1.3-4.4); LYMPH % 19.1 % (27.0-41.0); MEAN CELL VOLUME 92.2 fl (80.0-94.0); MEAN CORPUSCULAR HGB 29.6 pg (27.0-31.0); MEAN CORPUSCULAR HGB CONC 32.1 g/dl (33.0-37.0); MEAN PLATELET VOLUME 12.6 fl (9.6-12.3); MONO # 0.3 10*3/uL (0.1-1.0); MONO % 4.5 % (3.0-9.0); NEUT # 5.1 10*3/uL (2.3-7.9); NEUT % 74.3 % (47.0-73.0); PLATELET COUNT AUTOMATED 118 10*3/uL (130-400); RED BLOOD COUNT 5.54 10*6/uL (4.50-5.90); RED CELL DISTRI WIDTH 13.5 % (0-14.5); WHITE BLOOD COUNT 6.9 10*3/uL (4.8-10.8)
[2021-08-17 07:02] LABS: ALKALINE PHOSPHATASE 79 U/L (45-117); BUN 41 mg/dl (7-24); CHLORIDE 102 mmol/L (98-107); CREATININE 0.83 mg/dL (0.70-1.30); POTASSIUM 4.8 mmol/L (3.5-5.1); SGOT/AST 66 IU/L (3-35); SGPT/ALT 76 U/L (12-78); SODIUM 141 mmol/L (136-145)
[2021-08-17 08:00] VITALS: BP 120/63
[2021-08-17 12:00] VITALS: BP 103/63
[2021-08-17 16:00] VITALS: BP 112/50
[2021-08-17 20:00] VITALS: BP 102/82
[2021-08-18] VITALS: BP 112/72
[2021-08-18 06:30] LABS: ALKALINE PHOSPHATASE 80 U/L (45-117); BASO % 0.2 % (0.0-1.0); CHLORIDE 101 mmol/L (98-107); CREATININE 0.71 mg/dL (0.70-1.30); HEMATOCRIT 51.2 % (42.0-52.0); LYMPH # 1.7 10*3/uL (1.3-4.4); MEAN CELL VOLUME 92.8 fl (80.0-94.0); MEAN CORPUSCULAR HGB 30.1 pg (27.0-31.0); MEAN CORPUSCULAR HGB CONC 32.4 g/dl (33.0-37.0); MONO # 0.4 10*3/uL (0.1-1.0); NEUT # 5.9 10*3/uL (2.3-7.9); NEUT % 72.3 % (47.0-73.0); PLATELET COUNT AUTOMATED 116 10*3/uL (130-400); POTASSIUM 4.6 mmol/L (3.5-5.1); RED BLOOD COUNT 5.52 10*6/uL (4.50-5.90); RED CELL DISTRI WIDTH 13.7 % (0-14.5); SGOT/AST 40 IU/L (3-35); SGPT/ALT 65 U/L (12-78); SODIUM 140 mmol/L (136-145); WHITE BLOOD COUNT 8.2 10*3/uL (4.8-10.8)
[2021-08-18 06:35] LABS: BUN 31 mg/dl (7-24)
[2021-08-18 08:00] VITALS: BP 104/64
[2021-08-18 12:00] VITALS: BP 104/64
[2021-08-18 16:00] VITALS: BP 96/54
[2021-08-18 20:00] VITALS: BP 104/61
[2021-08-19] VITALS: BP 116/74; BP 92/62
[2021-08-19 06:41] LABS: BASO % 0.2 % (0.0-1.0); HEMATOCRIT 49.2 % (42.0-52.0); LYMPH # 1.9 10*3/uL (1.3-4.4); LYMPH % 21.8 % (27.0-41.0); MEAN CELL VOLUME 92.1 fl (80.0-94.0); MEAN CORPUSCULAR HGB 29.4 pg (27.0-31.0); MEAN CORPUSCULAR HGB CONC 31.9 g/dl (33.0-37.0); MEAN PLATELET VOLUME 12.2 fl (9.6-12.3); MONO # 0.6 10*3/uL (0.1-1.0); MONO % 6.6 % (3.0-9.0); NEUT # 6.2 10*3/uL (2.3-7.9); NEUT % 70.2 % (47.0-73.0); PLATELET COUNT AUTOMATED 108 10*3/uL (130-400); RED BLOOD COUNT 5.34 10*6/uL (4.50-5.90); RED CELL DISTRI WIDTH 13.6 % (0-14.5); WHITE BLOOD COUNT 8.8 10*3/uL (4.8-10.8)
[2021-08-19 06:52] LABS: ALKALINE PHOSPHATASE 75 U/L (45-117); BUN 32 mg/dl (7-24); CHLORIDE 104 mmol/L (98-107); CREATININE 0.74 mg/dL (0.70-1.30); POTASSIUM 4.8 mmol/L (3.5-5.1); SGOT/AST 38 IU/L (3-35); SGPT/ALT 63 U/L (12-78); SODIUM 138 mmol/L (136-145); TOTAL PROTEIN 5.6 gm/dL (6.4-8.2)
[2021-08-19 07:11] VITALS: BP 129/91
[2021-08-19 12:00] VITALS: BP 102/76
[2021-08-19 16:00] VITALS: BP 113/83
[2021-08-19 20:00] VITALS: BP 104/66
[2021-08-20] VITALS: BP 99/52
[2021-08-20 06:25] LABS: BASO % 0.1 % (0.0-1.0); HEMATOCRIT 49.6 % (42.0-52.0); LYMPH # 1.3 10*3/uL (1.3-4.4); LYMPH % 14.6 % (27.0-41.0); MEAN CELL VOLUME 92.4 fl (80.0-94.0); MEAN CORPUSCULAR HGB 29.8 pg (27.0-31.0); MEAN CORPUSCULAR HGB CONC 32.3 g/dl (33.0-37.0); MEAN PLATELET VOLUME 12.3 fl (9.6-12.3); MONO # 0.3 10*3/uL (0.1-1.0); MONO % 3.1 % (3.0-9.0); NEUT # 7.1 10*3/uL (2.3-7.9); NEUT % 80.4 % (47.0-73.0); PLATELET COUNT AUTOMATED 109 10*3/uL (130-400); RED BLOOD COUNT 5.37 10*6/uL (4.50-5.90); RED CELL DISTRI WIDTH 13.6 % (0-14.5); WHITE BLOOD COUNT 8.8 10*3/uL (4.8-10.8)
[2021-08-20 06:49] LABS: ALKALINE PHOSPHATASE 82 U/L (45-117); BUN 26 mg/dl (7-24); CHLORIDE 102 mmol/L (98-107); CREATININE 0.75 mg/dL (0.70-1.30); POTASSIUM 4.5 mmol/L (3.5-5.1); SGOT/AST 45 IU/L (3-35); SGPT/ALT 73 U/L (12-78); SODIUM 140 mmol/L (136-145); TOTAL PROTEIN 5.8 gm/dL (6.4-8.2)
[2021-08-20 08:00] VITALS: BP 126/74
[2021-08-20 12:00] VITALS: BP 128/73
[2021-08-20 16:00] VITALS: BP 106/60
[2021-08-20 20:00] VITALS: BP 106/64
[2021-08-21] VITALS: BP 98/63
[2021-08-21 06:20] LABS: BUN 26 mg/dl (7-24); CHLORIDE 102 mmol/L (98-107); POTASSIUM 4.6 mmol/L (3.5-5.1); SODIUM 140 mmol/L (136-145)
[2021-08-21 06:24] LABS: ALKALINE PHOSPHATASE 81 U/L (45-117); CREATININE 0.76 mg/dL (0.70-1.30); SGOT/AST 61 IU/L (3-35); SGPT/ALT 92 U/L (12-78); TOTAL PROTEIN 5.6 gm/dL (6.4-8.2)
[2021-08-21 06:27] LABS: BASO % 0.2 % (0.0-1.0); HEMATOCRIT 51.8 % (42.0-52.0); LYMPH % 18.5 % (27.0-41.0); MEAN CELL VOLUME 93.3 fl (80.0-94.0); MEAN CORPUSCULAR HGB 29.9 pg (27.0-31.0); MEAN PLATELET VOLUME 12.5 fl (9.6-12.3); MONO # 0.9 10*3/uL (0.1-1.0); MONO % 8.2 % (3.0-9.0); NEUT # 7.7 10*3/uL (2.3-7.9); PLATELET COUNT AUTOMATED 111 10*3/uL (130-400); RED BLOOD COUNT 5.55 10*6/uL (4.50-5.90); WHITE BLOOD COUNT 10.7 10*3/uL (4.8-10.8)
[2021-08-21 08:00] VITALS: BP 111/63
[2021-08-21 12:00] VITALS: BP 103/63
[2021-08-21 16:00] VITALS: BP 104/62
[2021-08-21 20:00] VITALS: BP 103/65
[2021-08-22] VITALS: BP 107/64
[2021-08-22 06:36] LABS: BASO % 0.1 % (0.0-1.0); HEMATOCRIT 48.7 % (42.0-52.0); LYMPH # 1.7 10*3/uL (1.3-4.4); LYMPH % 18.7 % (27.0-41.0); MEAN CELL VOLUME 92.1 fl (80.0-94.0); MEAN CORPUSCULAR HGB 29.9 pg (27.0-31.0); MEAN CORPUSCULAR HGB CONC 32.4 g/dl (33.0-37.0); MEAN PLATELET VOLUME 12.6 fl (9.6-12.3); MONO # 0.3 10*3/uL (0.1-1.0); MONO % 3.3 % (3.0-9.0); NEUT # 7.1 10*3/uL (2.3-7.9); NEUT % 76.9 % (47.0-73.0); PLATELET COUNT AUTOMATED 106 10*3/uL (130-400); RED BLOOD COUNT 5.29 10*6/uL (4.50-5.90); RED CELL DISTRI WIDTH 13.9 % (0-14.5); WHITE BLOOD COUNT 9.2 10*3/uL (4.8-10.8)
[2021-08-22 06:38] LABS: ALKALINE PHOSPHATASE 85 U/L (45-117); BUN 23 mg/dl (7-24); CHLORIDE 102 mmol/L (98-107); CREATININE 0.74 mg/dL (0.70-1.30); POTASSIUM 4.6 mmol/L (3.5-5.1); SGOT/AST 44 IU/L (3-35); SGPT/ALT 85 U/L (12-78); SODIUM 139 mmol/L (136-145); TOTAL PROTEIN 5.6 gm/dL (6.4-8.2)
[2021-08-22 08:28] VITALS: BP 102/65
[2021-08-22] MEDS ORDERED: LEVOFLOXACIN750 M2 PO (09:41)
[2021-08-23 02:06] LABS: HEP B CORE AB, IGM Negative (Negative); HEPATITIS B SURFACE AG Negative (Negative); HEPATITIS C VIRUS ANTIBODY >11.0 s/co (0.0-0.9)
== END 2021-08-22 11:00 | DRG 871 ==
LOC: ED 16:03 → EDHOLD 18:07 → 4E 18:07 → ICCU 18:07 → EDHOLD 08-13 05:14 → ICCU 08-13 07:02 → 4E 08-16 18:34
PROVIDERS: Internal Medicine; Internal Medicine Critical Care Medicine; Nurse Practitioner Family; ADMIT Internal Medicine; ATTEND Internal Medicine
PROC: 5A1945Z Respiratory Ventilation, 24-96 Consecutive Hours (ICD-10-PCS; principal; 2021-08-12)
PROC: 0BH17EZ Insertion of Endotracheal Airway into Trachea, Via Natural or Artificial Opening (ICD-10-PCS; 2021-08-12)
PROC: 02HV33Z Insertion of Infusion Device into Superior Vena Cava, Percutaneous Approach (ICD-10-PCS; 2021-08-13)
PROC: B548ZZA Ultrasonography of Superior Vena Cava, Guidance (ICD-10-PCS; 2021-08-13)
PROC: 5A09457 Assistance with Respiratory Ventilation, 24-96 Consecutive Hours, Continuous Positive Airway Pressure (ICD-10-PCS; 2021-08-14)
PROC: 5A09357 Assistance with Respiratory Ventilation, Less than 24 Consecutive Hours, Continuous Positive Airway Pressure (ICD-10-PCS; 2021-08-17)
PROC: 5A09357 Assistance with Respiratory Ventilation, Less than 24 Consecutive Hours, Continuous Positive Airway Pressure (ICD-10-PCS; 2021-08-18)
PROC: 5A09357 Assistance with Respiratory Ventilation, Less than 24 Consecutive Hours, Continuous Positive Airway Pressure (ICD-10-PCS; 2021-08-20)
PROC: 5A09357 Assistance with Respiratory Ventilation, Less than 24 Consecutive Hours, Continuous Positive Airway Pressure (ICD-10-PCS; 2021-08-21)
PROC: 5A09357 Assistance with Respiratory Ventilation, Less than 24 Consecutive Hours, Continuous Positive Airway Pressure (ICD-10-PCS; 2021-08-22)
DX: A41.9 Sepsis, unspecified organism (principal); J13 Pneumonia due to Streptococcus pneumoniae; J96.21 Acute and chronic respiratory failure with hypoxia; J96.22 Acute and chronic respiratory failure with hypercapnia; E43 Unspecified severe protein-calorie malnutrition; E87.1 Hypo-osmolality and hyponatremia; N39.0 Urinary tract infection, site not specified; J44.1 Chronic obstructive pulmonary disease with (acute) exacerbation; F11.20 Opioid dependence, uncomplicated; Z68.45 Body mass index [BMI] 70 or greater, adult; E87.3 Alkalosis; I50.30 Unspecified diastolic (congestive) heart failure; Z20.822 Contact with and (suspected) exposure to COVID-19; F17.200 Nicotine dependence, unspecified, uncomplicated; M19.90 Unspecified osteoarthritis, unspecified site; R62.7 Adult failure to thrive; D75.1 Secondary polycythemia; I11.0 Hypertensive heart disease with heart failure; E66.01 Morbid (severe) obesity due to excess calories; I95.9 Hypotension, unspecified; I48.91 Unspecified atrial fibrillation; Z90.49 Acquired absence of other specified parts of digestive tract; Z83.3 Family history of diabetes mellitus; Z79.899 Other long term (current) drug therapy; Z79.51 Long term (current) use of inhaled steroids

== ENCOUNTER → 2021-10-07 | Outpatient (CLI) | payer OTHER ==
[~2021-10-07] MED LIST changes: +LEVOFLOXACIN750 M2 PO
== END ==
LOC: ORTHO 00:59
PROVIDERS: ATTEND Orthopaedic Surgery
DX: M19.012 Primary osteoarthritis, left shoulder (principal)

== ENCOUNTER 2022-10-17 18:20 | Emergency (ER) | payer OTHER ==
[~2022-10-17] VITALS: Ht 187.9 cm; Wt 140.6 kg
[2022-10-17 18:26] VITALS: BP 165/93
[2022-10-17] MEDS ORDERED: NAPROXEN250 MG PO (19:21)
[2022-10-17] MEDS ORDERED: METHOCARBAMOL500 M1 PO (19:21)
== END 2022-10-17 19:38 | disposition home or self-care (01) ==
LOC: ED 18:20
DX: S46.911A Strain of unspecified muscle, fascia and tendon at shoulder and upper arm level, right arm, initial encounter (principal); S29.012A Strain of muscle and tendon of back wall of thorax, initial encounter; Z79.899 Other long term (current) drug therapy; Z90.49 Acquired absence of other specified parts of digestive tract; Z98.890 Other specified postprocedural states; X58.XXXA Exposure to other specified factors, initial encounter; Y93.89 Activity, other specified; Y92.89 Other specified places as the place of occurrence of the external cause; Y99.8 Other external cause status

== ENCOUNTER 2022-12-14 13:15 | Emergency (ER) | payer OTHER ==
[~2022-12-14] VITALS: Ht 187.9 cm; Wt 131.5 kg
[~2022-12-14 13:15] MED LIST changes: +METHOCARBAMOL500 M1 PO; +NAPROXEN250 MG PO
[2022-12-14 13:31] VITALS: BP 134/74
[2022-12-14] MEDS ORDERED: MELOXICAM15 MG PO (17:34)
== END 2022-12-14 18:13 | disposition home or self-care (01) ==
LOC: ED 13:15
DX: M25.551 Pain in right hip (principal); M54.50 Low back pain, unspecified; M25.561 Pain in right knee; J44.9 Chronic obstructive pulmonary disease, unspecified; I10 Essential (primary) hypertension; Z90.49 Acquired absence of other specified parts of digestive tract; Z96.652 Presence of left artificial knee joint; F17.200 Nicotine dependence, unspecified, uncomplicated; F14.10 Cocaine abuse, uncomplicated

== ENCOUNTER 2023-03-06 11:13 | Emergency (ER) | payer OTHER ==
[~2023-03-06] VITALS: Ht 187.9 cm; Wt 145.1 kg
[~2023-03-06 11:13] MED LIST changes: +MELOXICAM15 MG PO
[2023-03-06 11:35] VITALS: BP 156/99
[2023-03-06 12:27] LABS: BASO % 0.3 % (0.0-1.0); EOS # 0.2 10*3/uL (0.0-0.4); EOS % 2.4 % (1.0-4.0); HEMATOCRIT 50.4 % (42.0-52.0); LYMPH # 2.7 10*3/uL (1.3-4.4); LYMPH % 40.5 % (27.0-41.0); MEAN CELL VOLUME 94.6 fl (80.0-94.0); MEAN CORPUSCULAR HGB 31.1 pg (27.0-31.0); MEAN CORPUSCULAR HGB CONC 32.9 g/dl (33.0-37.0); MEAN PLATELET VOLUME 12.2 fl (9.6-12.3); MONO # 0.6 10*3/uL (0.1-1.0); MONO % 9.5 % (3.0-9.0); NEUT # 3.1 10*3/uL (2.3-7.9); NEUT % 47.1 % (47.0-73.0); PLATELET COUNT AUTOMATED 114 10*3/uL (130-400); RED BLOOD COUNT 5.33 10*6/uL (4.50-5.90); RED CELL DISTRI WIDTH 13.2 % (0-14.5); WHITE BLOOD COUNT 6.6 10*3/uL (4.8-10.8)
[2023-03-06 12:48] LABS: ALKALINE PHOSPHATASE 185 U/L (46-116); BUN 8 mg/dl (9-23); CHLORIDE 102 mmol/L (98-107); LIPASE 27 U/L (12-53); POTASSIUM 3.9 mmol/L (3.4-5.1); SGPT/ALT 77 U/L (10-49)
[2023-03-06 13:01] LABS: BILIRUBIN 1+ (Negative); BLOOD Negative (Negative); CLARITY Clear (Clear); COLOR Dark Yellow (Yellow); GLUCOSE Negative (Negative); KETONE Negative (Negative); LEUKO ESTERASE Negative (Negative); NITRITE Negative (Negative); PH 6.5 (4.5-8.0)
[2023-03-06 13:12] LABS: EPITHELIAL CELLS 0-2; MUCOUS 2+; WBC 0-2 wbc/hpf (0-5)
[2023-03-06] MEDS ORDERED: CYCLOBENZAPRINE10 MG PO (15:27)
== END 2023-03-06 15:59 | disposition home or self-care (01) ==
LOC: ED 11:13
PROVIDERS: Physician Assistant Medical
DX: S39.012A Strain of muscle, fascia and tendon of lower back, initial encounter (principal); I10 Essential (primary) hypertension; J44.9 Chronic obstructive pulmonary disease, unspecified; Z96.652 Presence of left artificial knee joint; Z90.49 Acquired absence of other specified parts of digestive tract; Z98.890 Other specified postprocedural states; F17.200 Nicotine dependence, unspecified, uncomplicated; F13.10 Sedative, hypnotic or anxiolytic abuse, uncomplicated; F14.10 Cocaine abuse, uncomplicated; X58.XXXA Exposure to other specified factors, initial encounter; Y93.89 Activity, other specified; Y92.89 Other specified places as the place of occurrence of the external cause; Y99.8 Other external cause status

== ENCOUNTER 2023-08-23 11:38 | Emergency (ER) | payer OTHER ==
[~2023-08-23 11:38] MED LIST changes: +BUDESONIDE-FO10.2 GM INH; +BUSPAR15 MG PO; +COMBIVENT RESPIM4 GM INH; +CYCLOBENZAPRINE10 MG PO; +DALI500T PO; +DILTIAZEM CD240 MG PO; +DILTIAZEM HCL120 M2 PO; +FUROSEMIDE20 M1 PO; +FUROSEMIDE40 MG PO; +Ipratropium Brom3 ML INH; +SERTRALINE HYDR50 MG PO
[2023-08-23 12:32] LABS: BASO % 0.2 % (0.0-1.0); EOS # 0.1 10*3/uL (0.0-0.4); EOS % 0.9 % (1.0-4.0); HEMATOCRIT 50.1 % (42.0-52.0); LYMPH # 3.1 10*3/uL (1.3-4.4); LYMPH % 27.4 % (27.0-41.0); MEAN CELL VOLUME 95.8 fl (80.0-94.0); MEAN CORPUSCULAR HGB 30.8 pg (27.0-31.0); MEAN CORPUSCULAR HGB CONC 32.1 g/dl (33.0-37.0); MEAN PLATELET VOLUME 10.6 fl (9.6-12.3); MONO # 0.9 10*3/uL (0.1-1.0); MONO % 8.2 % (3.0-9.0); NEUT % 62.6 % (47.0-73.0); PLATELET COUNT AUTOMATED 210 10*3/uL (130-400); RED BLOOD COUNT 5.23 10*6/uL (4.50-5.90); RED CELL DISTRI WIDTH 12.7 % (0-14.5); WHITE BLOOD COUNT 11.2 10*3/uL (4.8-10.8)
[2023-08-23 12:54] LABS: ALKALINE PHOSPHATASE 125 U/L (46-116); BUN 23 mg/dl (9-23); CHLORIDE 96 mmol/L (98-107); LIPASE 25 U/L (12-53); POTASSIUM 3.6 mmol/L (3.4-5.1); SGPT/ALT 203 U/L (5-49); TOTAL PROTEIN 6.2 gm/dL (6.0-8.0)
[2023-08-23] MEDS ORDERED: methylPREDNISolone sod succ 125 MG VIAL IV ONE (16:05)
[2023-08-23] MEDS ORDERED: Albuterol Sulf/Ipratropium 3 ML VIAL NEB ONE (16:05)
[2023-08-23] MEDS ORDERED: PREDNISONE10 MG PO (17:24)
[2023-08-23 18:30] VITALS: BP 104/72
== END 2023-08-23 17:33 ==
LOC: ED 11:38
PROVIDERS: Emergency Medicine
DX: J44.1 Chronic obstructive pulmonary disease with (acute) exacerbation (principal); I10 Essential (primary) hypertension; F13.10 Sedative, hypnotic or anxiolytic abuse, uncomplicated; F17.200 Nicotine dependence, unspecified, uncomplicated; F14.10 Cocaine abuse, uncomplicated; Z90.49 Acquired absence of other specified parts of digestive tract; Z98.890 Other specified postprocedural states

== ENCOUNTER 2023-12-15 05:11 | Emergency (ER) | payer OTHER ==
[~2023-12-15] VITALS: Ht 167.6 cm; Wt 132.4 kg
[2023-12-15 05:16] VITALS: BP 111/76
[2023-12-15] MEDS ORDERED: Ketorolac Tromethamine 30 MG/ML VIAL IM ONE (05:35)
== END 2023-12-15 06:15 | disposition home or self-care (01) ==
LOC: ED 05:11
DX: S63.501A Unspecified sprain of right wrist, initial encounter (principal); J44.9 Chronic obstructive pulmonary disease, unspecified; I10 Essential (primary) hypertension; F14.10 Cocaine abuse, uncomplicated; F17.200 Nicotine dependence, unspecified, uncomplicated; F13.10 Sedative, hypnotic or anxiolytic abuse, uncomplicated; Z90.49 Acquired absence of other specified parts of digestive tract; Z96.652 Presence of left artificial knee joint; Z98.890 Other specified postprocedural states; W01.0XXA Fall on same level from slipping, tripping and stumbling without subsequent striking against object, initial encounter; Y93.89 Activity, other specified; Y92.009 Unspecified place in unspecified non-institutional (private) residence as the place of occurrence of the external cause; Y99.8 Other external cause status

== ENCOUNTER 2024-01-07 10:23 | Emergency (ER) | payer OTHER ==
[~2024-01-07] VITALS: Ht 182.8 cm; Wt 99.8 kg
[2024-01-07 12:05] LABS: BASO % 0.4 % (0.0-1.0); EOS # 0.3 10*3/uL (0.0-0.4); EOS % 4.4 % (1.0-4.0); HEMATOCRIT 44.6 % (42.0-52.0); LYMPH # 3.4 10*3/uL (1.3-4.4); LYMPH % 44.6 % (27.0-41.0); MEAN CELL VOLUME 92.3 fl (80.0-94.0); MEAN CORPUSCULAR HGB 29.6 pg (27.0-31.0); MEAN CORPUSCULAR HGB CONC 32.1 g/dl (33.0-37.0); MONO # 0.6 10*3/uL (0.1-1.0); MONO % 7.3 % (3.0-9.0); NEUT # 3.3 10*3/uL (2.3-7.9); NEUT % 42.9 % (47.0-73.0); PLATELET COUNT AUTOMATED 144 10*3/uL (130-400); RED BLOOD COUNT 4.83 10*6/uL (4.50-5.90); RED CELL DISTRI WIDTH 14.5 % (0-14.5); WHITE BLOOD COUNT 7.6 10*3/uL (4.8-10.8)
[2024-01-07 12:16] LABS: ACT PARTIAL THROMBO TIME 30.2 SECONDS (20.0-32.1)
[2024-01-07 12:26] LABS: ALKALINE PHOSPHATASE 121 U/L (46-116); BUN 6 mg/dl (9-23); CHLORIDE 100 mmol/L (98-107); POTASSIUM 3.5 mmol/L (3.4-5.1); SGPT/ALT 24 U/L (5-49)
[2024-01-07 13:06] VITALS: BP 105/54
== END 2024-01-07 14:35 | disposition left against medical advice (07) ==
LOC: ED 10:23
PROVIDERS: Internal Medicine
DX: R07.89 Other chest pain (principal); R42 Dizziness and giddiness; R51.9 Headache, unspecified; J44.9 Chronic obstructive pulmonary disease, unspecified; F17.200 Nicotine dependence, unspecified, uncomplicated; Z79.899 Other long term (current) drug therapy; Z90.49 Acquired absence of other specified parts of digestive tract; Z96.652 Presence of left artificial knee joint

== ENCOUNTER 2024-02-11 16:47 | Emergency (ER) | payer OTHER ==
[~2024-02-11] VITALS: Ht 187.9 cm; Wt 127.0 kg
[~2024-02-11 16:47] MED LIST changes: +AMOX-CLAV 875-1 EACH PO
[2024-02-11 16:52] VITALS: BP 142/74
[2024-02-11] MEDS ORDERED: LASIX20 MG PO (17:05)
[2024-02-11] MEDS ORDERED: COMBIVENT RESPIM4 GM INH (17:05)
[2024-02-11] MEDS ORDERED: BREYNA 80-4.510.3 GM INH (17:13)
[2024-02-11] MEDS ORDERED: VENT7GM INH (17:13)
[2024-02-11 17:28] LABS: BASO % 0.3 % (0.0-1.0); EOS # 0.3 10*3/uL (0.0-0.4); EOS % 3.9 % (1.0-4.0); HEMATOCRIT 45.9 % (42.0-52.0); LYMPH # 3.5 10*3/uL (1.3-4.4); MEAN CELL VOLUME 95.4 fl (80.0-94.0); MEAN CORPUSCULAR HGB 29.7 pg (27.0-31.0); MEAN CORPUSCULAR HGB CONC 31.2 g/dl (33.0-37.0); MEAN PLATELET VOLUME 10.8 fl (9.6-12.3); MONO # 0.5 10*3/uL (0.1-1.0); MONO % 6.6 % (3.0-9.0); NEUT # 3.6 10*3/uL (2.3-7.9); NEUT % 44.9 % (47.0-73.0); PLATELET COUNT AUTOMATED 188 10*3/uL (130-400); RED BLOOD COUNT 4.81 10*6/uL (4.50-5.90); RED CELL DISTRI WIDTH 15.5 % (0-14.5); WHITE BLOOD COUNT 7.9 10*3/uL (4.8-10.8)
[2024-02-11 17:40] LABS: ACT PARTIAL THROMBO TIME 30.2 SECONDS (20.0-32.1)
[2024-02-11 17:50] LABS: ALKALINE PHOSPHATASE 180 U/L (46-116); BUN 5 mg/dl (9-23); CHLORIDE 101 mmol/L (98-107); POTASSIUM 3.8 mmol/L (3.4-5.1); SGPT/ALT 43 U/L (5-49); TOTAL PROTEIN 6.5 gm/dL (6.0-8.0)
[2024-02-11] MEDS ORDERED: Dexamethasone Sodium Phospha 20 MG/5 ML VIAL IV ONE (19:00)
== END 2024-02-11 18:51 | disposition home or self-care (01) ==
LOC: ED 16:47
PROVIDERS: Internal Medicine
DX: R09.02 Hypoxemia (principal); T50.995A Adverse effect of other drugs, medicaments and biological substances, initial encounter; J44.9 Chronic obstructive pulmonary disease, unspecified; I10 Essential (primary) hypertension; F17.200 Nicotine dependence, unspecified, uncomplicated; F13.10 Sedative, hypnotic or anxiolytic abuse, uncomplicated; F14.10 Cocaine abuse, uncomplicated; Z90.49 Acquired absence of other specified parts of digestive tract; Z98.890 Other specified postprocedural states; Z96.652 Presence of left artificial knee joint; Y92.009 Unspecified place in unspecified non-institutional (private) residence as the place of occurrence of the external cause

== ENCOUNTER 2024-06-01 12:05 | Inpatient (IN) | payer MEDICARE, OTHER ==
[~2024-06-01] VITALS: Ht 187.9 cm; Wt 124.0 kg
[~2024-06-01 12:05] MED LIST changes: +BREYNA 80-4.510.3 GM INH; +LASIX20 MG PO; +VENT7GM INH
[2024-06-01 12:10] VITALS: BP 141/71
[2024-06-01 12:35] LABS: BASO % 0.3 % (0.0-1.0); EOS # 0.1 10*3/uL (0.0-0.4); EOS % 1.4 % (1.0-4.0); HEMATOCRIT 49.6 % (42.0-52.0); MEAN CELL VOLUME 94.5 fl (80.0-94.0); MEAN CORPUSCULAR HGB 30.1 pg (27.0-31.0); MEAN CORPUSCULAR HGB CONC 31.9 g/dl (33.0-37.0); MEAN PLATELET VOLUME 10.8 fl (9.6-12.3); MONO # 0.7 10*3/uL (0.1-1.0); MONO % 9.5 % (3.0-9.0); NEUT # 3.7 10*3/uL (2.3-7.9); NEUT % 48.2 % (47.0-73.0); PLATELET COUNT AUTOMATED 209 10*3/uL (130-400); RED BLOOD COUNT 5.25 10*6/uL (4.50-5.90); RED CELL DISTRI WIDTH 12.6 % (0-14.5); WHITE BLOOD COUNT 7.7 10*3/uL (4.8-10.8)
[2024-06-01 12:54] LABS: BUN 7 mg/dl (9-23); CHLORIDE 97 mmol/L (98-107)
[2024-06-01] MEDS ORDERED: Acetaminophen/Hydrocodone 5 MG/325 MG TABLET PO ONE (13:00)
[2024-06-01 15:46] LABS: BILIRUBIN Negative (Negative); BLOOD Negative (Negative); CLARITY Clear (Clear); COLOR Dark Yellow (Yellow); GLUCOSE Negative (Negative); KETONE Negative (Negative); LEUKO ESTERASE Negative (Negative); NITRITE Negative (Negative); PH 6.5 (4.5-8.0); SPECIFIC GRAVITY 1.025 (1.001-1.030)
[2024-06-01 16:20] LABS: BACTERIA TRACE; EPITHELIAL CELLS 0-2; MUCOUS TRACE; WBC 0-2 wbc/hpf (0-5)
[2024-06-01 16:21] LABS: RBC 0-2 rbc/hpf (0-2)
[2024-06-01] MEDS ORDERED: ASPIRIN, CHEWABLE 81 MG TAB PO ONE (20:30)
[2024-06-01 21:26] VITALS: BP 145/75
[2024-06-01] MEDS ORDERED: Ketorolac Tromethamine 30 MG/ML VIAL IV ONE (21:40)
[2024-06-01] MEDS ORDERED: BUPRENORPHINE HCL/NALOXONE 8 MG-2 MG SL TABLET SL SCH (22:45)
[2024-06-01] MEDS ORDERED: Albuterol Sulf/Ipratropium 3 ML VIAL NEB SCH (22:50)
[2024-06-02 00:21] VITALS: BP 140/77
[2024-06-02] MEDS ORDERED: BUPRENORPHINE HCL/NALOXONE 8 MG-2 MG SL TABLET SL ONE (00:35)
[2024-06-02 03:15] VITALS: BP 125/64
[2024-06-02] MEDS ORDERED: Ketorolac Tromethamine 15 MG/ML VIAL IV SCH (04:00)
[2024-06-02 05:30] LABS: BUN 9 mg/dl (9-23); CHLORIDE 97 mmol/L (98-107); CHOLESTEROL 112 mg/dL (<200); LDL CHOLESTEROL 67 mg/dL (9-159); POTASSIUM 3.6 mmol/L (3.4-5.1); TRIGLYCERIDES 73 mg/dl (<150)
[2024-06-02] MEDS ORDERED: ACETAMINOPHEN 500 MG TAB PO SCH (06:00)
[2024-06-02 06:08] LABS: BASO % 0.2 % (0.0-1.0); EOS # 0.1 10*3/uL (0.0-0.4); HEMATOCRIT 47.7 % (42.0-52.0); MEAN CELL VOLUME 94.6 fl (80.0-94.0); MEAN CORPUSCULAR HGB CONC 31.7 g/dl (33.0-37.0); MEAN PLATELET VOLUME 11.7 fl (9.6-12.3); MONO # 0.9 10*3/uL (0.1-1.0); MONO % 9.3 % (3.0-9.0); NEUT # 5.1 10*3/uL (2.3-7.9); NEUT % 52.1 % (47.0-73.0); PLATELET COUNT AUTOMATED 211 10*3/uL (130-400); RED BLOOD COUNT 5.04 10*6/uL (4.50-5.90); RED CELL DISTRI WIDTH 12.7 % (0-14.5); WHITE BLOOD COUNT 9.8 10*3/uL (4.8-10.8)
[2024-06-02 06:48] VITALS: BP 128/78
[2024-06-02 08:10] VITALS: BP 119/66
[2024-06-02] MEDS ORDERED: busPIRone Hydrochloride 15 MG TAB PO SCH (09:29)
[2024-06-02] MEDS ORDERED: LISINOPRIL 10 MG TAB PO SCH (10:00)
[2024-06-02] MEDS ORDERED: BUPRENORPHINE HCL/NALOXONE 8 MG-2 MG SL TABLET SL SCH (10:00)
[2024-06-02] MEDS ORDERED: ASPIRIN ENTERIC COATED 81 MG TAB PO SCH (10:00)
[2024-06-02 16:00] VITALS: BP 102/68
[2024-06-02 20:00] VITALS: BP 106/55
[2024-06-03] VITALS (11 sets, daily range): BP systolic 91–131; BP diastolic 50–86
[2024-06-03 06:29] LABS: BASO % 0.3 % (0.0-1.0); EOS # 0.2 10*3/uL (0.0-0.4); EOS % 1.8 % (1.0-4.0); HEMATOCRIT 50.4 % (42.0-52.0); MEAN CORPUSCULAR HGB 30.1 pg (27.0-31.0); MEAN CORPUSCULAR HGB CONC 31.3 g/dl (33.0-37.0); MEAN PLATELET VOLUME 11.6 fl (9.6-12.3); MONO % 8.1 % (3.0-9.0); NEUT # 6.2 10*3/uL (2.3-7.9); NEUT % 51.8 % (47.0-73.0); PLATELET COUNT AUTOMATED 227 10*3/uL (130-400); RED BLOOD COUNT 5.25 10*6/uL (4.50-5.90); RED CELL DISTRI WIDTH 12.8 % (0-14.5); WHITE BLOOD COUNT 11.9 10*3/uL (4.8-10.8)
[2024-06-03 06:43] LABS: BILIRUBIN 2+ (Negative); BLOOD Negative (Negative); CLARITY Clear (Clear); COLOR Dark Yellow (Yellow); GLUCOSE Negative (Negative); KETONE Negative (Negative); LEUKO ESTERASE Trace (Negative); NITRITE Negative (Negative); SPECIFIC GRAVITY >= 1.030 (1.001-1.030)
[2024-06-03] MEDS ORDERED: Lidocaine Hydrochloride 5 ML AMP ONE (08:47)
[2024-06-03] MEDS ORDERED: BUPIVACAINE 0.25% 10 ML VIAL ONE (08:48)
[2024-06-03] MEDS ORDERED: Lidocaine Hydrochloride 5 ML AMP IJ ONE (08:50)
[2024-06-03] MEDS ORDERED: BUPIVACAINE 0.25% 10 ML VIAL IJ ONE (08:50)
[2024-06-03] MEDS ORDERED: Betamethasone ACE/Betamethas 30 MG/5 ML VIAL IJ ONE (08:50)
[2024-06-03] MEDS ORDERED: Tamsulosin Hydrochloride 0.4 MG CAP PO SCH (10:00)
[2024-06-03 12:49] LABS: BACTERIA 3+; MUCOUS 1+
[2024-06-04] VITALS: BP 108/70
[2024-06-04 05:31] LABS: BUN 18 mg/dl (9-23); CHLORIDE 100 mmol/L (98-107); POTASSIUM 4.7 mmol/L (3.4-5.1)
[2024-06-04] MEDS ORDERED: ACETAMINOPHEN 500 MG TAB PO SCH (06:00)
[2024-06-04 12:00] VITALS: BP 120/62
[2024-06-04] MEDS ORDERED: Budesonide/Formoterol Fumarate 80/4.5 inhaler INH SCH (16:15)
[2024-06-04] MEDS ORDERED: BUDESONIDE 0.5 MG AMP NEB SCH (16:50)
== END 2024-06-04 16:44 | disposition home or self-care (01) | DRG 554 ==
LOC: ED 12:05 → EDHOLD 20:40 → 4E 20:40 → EDHOLD 06-02 12:36 → 4E 06-02 13:20
PROVIDERS: Internal Medicine; Nurse Practitioner Family; ADMIT Internal Medicine; ATTEND Internal Medicine
PROC: 3E0U33Z Introduction of Anti-inflammatory into Joints, Percutaneous Approach (ICD-10-PCS; principal; 2024-06-03)
PROC: 3E0U3BZ Introduction of Anesthetic Agent into Joints, Percutaneous Approach (ICD-10-PCS; 2024-06-03)
DX: M16.12 Unilateral primary osteoarthritis, left hip (principal); J96.10 Chronic respiratory failure, unspecified whether with hypoxia or hypercapnia; I48.92 Unspecified atrial flutter; R53.81 Other malaise; J43.2 Centrilobular emphysema; M17.12 Unilateral primary osteoarthritis, left knee; J44.9 Chronic obstructive pulmonary disease, unspecified; Z79.899 Other long term (current) drug therapy; I11.0 Hypertensive heart disease with heart failure; I50.9 Heart failure, unspecified; E66.01 Morbid (severe) obesity due to excess calories; Z90.49 Acquired absence of other specified parts of digestive tract; Z96.653 Presence of artificial knee joint, bilateral; F41.1 Generalized anxiety disorder; G89.29 Other chronic pain; M54.42 Lumbago with sciatica, left side; Z96.652 Presence of left artificial knee joint; Z83.3 Family history of diabetes mellitus

== ENCOUNTER 2024-09-18 14:03 | Emergency (ER) | payer OTHER ==
[2024-09-18 14:07] VITALS: BP 136/76
[2024-09-18 14:29] LABS: BASO % 0.3 % (0.0-1.0); EOS # 0.1 10*3/uL (0.0-0.4); EOS % 1.8 % (1.0-4.0); MEAN CELL VOLUME 96.8 fl (80.0-94.0); MEAN CORPUSCULAR HGB CONC 32.1 g/dl (33.0-37.0); MONO # 0.6 10*3/uL (0.1-1.0); MONO % 8.3 % (3.0-9.0); NEUT # 3.1 10*3/uL (2.3-7.9); NEUT % 42.2 % (47.0-73.0); PLATELET COUNT AUTOMATED 148 10*3/uL (130-400); RED BLOOD COUNT 4.96 10*6/uL (4.50-5.90); RED CELL DISTRI WIDTH 12.7 % (0-14.5); WHITE BLOOD COUNT 7.2 10*3/uL (4.8-10.8)
[2024-09-18 14:47] LABS: BUN 10 mg/dl (9-23); CHLORIDE 102 mmol/L (98-107); POTASSIUM 3.9 mmol/L (3.4-5.1)
[2024-09-18] MEDS ORDERED: CYMBALTA30 MG PO (15:04)
[2024-09-18] MEDS ORDERED: Motrin,Rufen800 MG PO (15:04)
[2024-09-18] MEDS ORDERED: NEURONTIN300 MG PO (15:05)
[2024-09-18] MEDS ORDERED: SEPTDS PO (17:38)
[2024-09-18] MEDS ORDERED: MEDROL DOSEPAK4 MG PO (17:38)
== END 2024-09-18 17:32 | disposition home or self-care (01) ==
LOC: ED 14:03
PROVIDERS: Internal Medicine
DX: S90.911A Unspecified superficial injury of right ankle, initial encounter (principal); M25.552 Pain in left hip; Z79.899 Other long term (current) drug therapy; F17.200 Nicotine dependence, unspecified, uncomplicated; Z90.49 Acquired absence of other specified parts of digestive tract; Z96.652 Presence of left artificial knee joint; X58.XXXA Exposure to other specified factors, initial encounter; Y93.89 Activity, other specified; Y92.89 Other specified places as the place of occurrence of the external cause; Y99.8 Other external cause status

== ENCOUNTER 2024-10-28 21:02 | Inpatient (IN) | payer OTHER ==
[~2024-10-28] VITALS: Ht 188 cm; Wt 129.3 kg
[~2024-10-28 21:02] MED LIST changes: +CYMBALTA30 MG PO; +DULOXETINE HCL30 MG PO; +NEURONTIN300 MG PO
[2024-10-28 21:14] VITALS: BP 140/66
[2024-10-28] MEDS ORDERED: MORPHINE Sulfate 2 MG/ML SYR IV PRN (21:30)
[2024-10-28] MEDS ORDERED: diazePAM 10 MG/2 ML SYR IV PRN (21:30)
[2024-10-28] MEDS ORDERED: ATROPINE SULFATE 1% 2 ML BOTTLE SL PRN (21:35)
[2024-10-28] MEDS ORDERED: MORPHINE Sulfate 50 MG in SODIUM CHLORIDE 0.9% 45 ML IV SCH (21:35)
[2024-10-28] MEDS ORDERED: Albuterol Sulf/Ipratropium 3 ML VIAL NEB ONE (22:03)
[2024-10-29 03:45] VITALS: BP 125/73
[2024-10-29 08:00] VITALS: BP 109/76
[2024-10-29 12:00] VITALS: BP 111/77
[2024-10-29 19:33] VITALS: BP 132/75
[2024-10-29] MEDS ORDERED: Albuterol Sulf/Ipratropium 3 ML VIAL NEB SCH ×2 (21:40)
[2024-10-29] MEDS ORDERED: diazePAM 10 MG/2 ML SYR IV PRN (22:32)
[2024-10-29 23:33] VITALS: BP 134/84
[2024-10-30 12:00] VITALS: BP 130/62
[2024-10-30] MEDS ORDERED: MORPHINE Sulfate 100 MG in SODIUM CHLORIDE 0.9% 90 ML IV SCH (22:10)
[2024-10-31] VITALS: BP 71/33
== END 2024-10-31 04:20 | DRG 872 ==
LOC: ICCU 21:02 → 5E 10-30 09:00
PROVIDERS: ADMIT Internal Medicine; ATTEND Internal Medicine
DX: A41.9 Sepsis, unspecified organism (principal); Z66 Do not resuscitate; R06.03 Acute respiratory distress; Z51.5 Encounter for palliative care